=== PATIENT | male | born 1950 | race Caucasian/White ===

== ENCOUNTER → 2019-06-03 14:28 | Outpatient (BNVA) | payer MEDICARE, OTHER, SELFPAY | PROVIDERS: Family Provider Family Medicine; PCP Family Medicine; Visit Provider Urology | DX: R97.20 Elevated prostate specific antigen [PSA] (principal); N40.1 Benign prostatic hyperplasia with lower urinary tract symptoms | CPT/HCPCS: 81001; 84153 ==

== ENCOUNTER → 2019-06-04 14:24 | Outpatient (BNVA) | payer MEDICARE, OTHER, SELFPAY | PROVIDERS: Family Provider Family Medicine; PCP Family Medicine; Visit Provider Urology | DX: R97.20 Elevated prostate specific antigen [PSA] (principal); N40.1 Benign prostatic hyperplasia with lower urinary tract symptoms | CPT/HCPCS: 84153 ==

== ENCOUNTER → 2019-12-02 14:27 | Outpatient (BNVA) | payer MEDICARE, OTHER, SELFPAY | PROVIDERS: Family Provider Family Medicine; PCP Family Medicine; Visit Provider Urology | DX: R97.20 Elevated prostate specific antigen [PSA] (principal); N40.1 Benign prostatic hyperplasia with lower urinary tract symptoms | CPT/HCPCS: 81001; 84153 ==

== ENCOUNTER → 2020-02-25 07:53 | Outpatient (BNVA) | payer MEDICARE, OTHER, SELFPAY | PROVIDERS: Family Provider Family Medicine; PCP Family Medicine; Visit Provider Urology | DX: R97.20 Elevated prostate specific antigen [PSA] (principal); N39.9 Disorder of urinary system, unspecified | CPT/HCPCS: 84153 ==

== ENCOUNTER → 2020-03-02 13:08 | Outpatient (BNVA) | payer MEDICARE, OTHER, SELFPAY | PROVIDERS: Family Provider Family Medicine; PCP Family Medicine; Visit Provider Urology | DX: N40.1 Benign prostatic hyperplasia with lower urinary tract symptoms (principal); K40.90 Unilateral inguinal hernia, without obstruction or gangrene, not specified as recurrent; R97.20 Elevated prostate specific antigen [PSA] | CPT/HCPCS: 81003; 87086 ==

== ENCOUNTER 2020-10-10 03:40 | Inpatient (IN) | payer MEDICARE, OTHER, SELFPAY ==
[2020-10-10] VITALS (24 sets, daily range): BP systolic 112–170; BP diastolic 57–91; PULSE 42–100; RESP 12–21; TEMP 36.2–37.7; O2SAT 90–99; BMI 30.4
--- NOTE | 2020-10-10 04:12 | XRR_ITS ---
PROCEDURE INFORMATION: Exam: XR Left Elbow Exam date and time: 10/10/2020 4:12 AM Age: 70 years old Clinical indication: Pain; Elbow; Left; Additional info: L elbow pain and swelling TECHNIQUE: Imaging protocol: XR Left elbow. Views: 3 or more views. COMPARISON: CR Shoulder 2+ views LEFT* [id number] 10/15/2013 11:22 AM FINDINGS: Bones/joints: No fracture or dislocation. There is degenerative changes of the elbow joint, manifested mainly by small periarticular osteophytes. Swelling of the soft tissues around the elbow is present. Soft tissues: See Bones/joints finding. XR/XR elbow LT min 3V* [id number] IMPRESSION: No acute osseous injury.
--- NOTE | 2020-10-10 04:12 | XRR_ITS ---
PROCEDURE INFORMATION: Exam: XR Right Shoulder Exam date and time: 10/10/2020 4:12 AM Age: 70 years old Clinical indication: Pain; Shoulder; Right; Additional info: R shoulder pain TECHNIQUE: Imaging protocol: XR Right shoulder. Views: 2 or more views. COMPARISON: No relevant prior studies available. FINDINGS: Bones/joints: There is moderate glenohumeral and mild acromioclavicular degenerative changes, manifested by joint space narrowing, subchondral sclerosis and periarticular osteophytes. No acute fracture or dislocation identified. Soft tissues: Normal. XR/XR shoulder RT min 2V* [id number] IMPRESSION: 1. 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 2. No acute injury.
[2020-10-10] MEDS: morphine 4 mg/mL SDV 1 mL IVP ×3 (04:20→14:05)
[2020-10-10] MEDS: ondansetron 2 mg/ML SDV 2 mL 4 MG IVP ×4 (04:20→23:04)
[2020-10-10 04:29] LABS: Basophils # 0.1 10^3/uL (0.0-0.1); Basophils % 0.4 %; Eosinophils % 0.1 %; Hematocrit 42.2 % (42.0-52.0); Hemoglobin 14.3 g/dL (11.7-16.6); Lymphocytes # 1.3 10^3/uL (0.8-4.8); Lymphocytes % 7.9 %; Mean Corpuscular HGB Conc 33.9 g/dL (30.0-36.0); Mean Corpuscular Hemoglobin 30.8 pg (28.0-34.0); Mean Corpuscular Volume 90.8 fL (80-94); Mean Platelet Volume 9.5 fL (7.4-10.4); Monocytes # 1.7 10^3/uL (0.2-0.9); Neutrophils # 12.59 10^3/uL (1.8-7.7); Neutrophils % 79.8 %; Nucleated Red Blood Cells % 0 %; Platelet Count 397 10^3/cmm (130-400); Red Blood Count 4.65 10^6/uL (4.1-5.3); Red Cell Distribution Width 13.4 % (12.1-15.1); White Blood Count 15.8 10^3/uL (4.0-10.0)
[2020-10-10 04:51] LABS: Alanine Aminotransferase 23 U/L (0-41); Alkaline Phosphatase 127 IU/L (40-130); Aspartate Amino Transferase 20 U/L (0-40); Blood Urea Nitrogen 26 mg/dL (8-23); C Reactive Protein 104.8 mg/L (0.0-4.9); Calcium 8.9 mg/dL (8.5-10.5); Carbon Dioxide 20 mmol/L (22-29); Chloride 100 mmol/L (98-107); Creatine Phosphokinase 208 U/L (39-308); Creatinine Clr Calc Pharmacy 50.1195; Globulin 2.4 g/dL (1.3-4.6); Glomerular Filtration Rate 46.3 mL/min (90-130); Glucose 203 mg/dL (65-115); Osmolality Calculated 283 mOsm/kg (285-295); Sodium 131 mmol/L (136-145); Total Bilirubin 0.8 mg/dL (0.15-1.2); Total Protein 6.4 g/dL (6.6-8.7); Uric Acid 4.2 mg/dL (3.4-7.0)
[2020-10-10 05:00] LABS: Anion Gap 16.1 (5-19); Potassium 5.1 mmol/L (3.5-5.1)
--- NOTE | 2020-10-10 05:24 | ED_ITS ---
HPI - Extremity Problem General: Chief complaint: Extremity Injury, Upper Stated complaint: Rt Shoulder out of Place and Bursitis in Left Elbo Time Seen by Provider: 10/10/20 03:56 History of Present Illness: HPI Narrative: 70-year-old male complaining of left elbow and right shoulder pain for the past several days. He was seen for his left elbow a few days ago, had an aspiration of his olecranon bursa was performed. Following this, the elbow swelled more, and he had pain radiating into his hand. He was placed on antibiotics following this because it was warm and red. He has had a fever of 100-101 at home. He has had increasing pain. He also complains of right shoulder pain. He believes he injured his shoulder on Saturday, and has had intense pain with moving the shoulder since. He has not been able to sleep. MD Complaint: extremity pain, extremity swelling and joint swelling Onset (ago): day(s) Pain Consistency: constant Location: left, right and upper extremity Quality: aching Radiation: none Relieving factors: cold therapy Exacerbating factors: range of motion Associated symptoms: Reports fever(s) and rash; Deny chest pain or short of breath Review of Systems Const: Reports: fever(s) Card: Denies: chest pain Resp: Denies: dyspnea or productive cough GI: Denies: abdominal pain, nausea or vomiting Skin/Breast: Reports: rash Neuro: Denies: headache(s) or numbness in extremities [facility] ED PFSH: Medical History BPH loc w urin obs/LUTS Elevated PSA Left inguinal hernia Slow urinary stream Surgical History H/O vasectomy Family History Family/Other CAD (coronary artery disease) Cancer Lung Stroke Mother Parkinson disease Social History Smoking and tobacco status: never smoked Alcohol intake: never Marital status: Current occupational status: retired Physical Exam Const: COMMON NORMALS: no acute distress and alert GENERAL APPEARANCE: cooperative HENMT: COMMON NORMALS: normocephalic HEAD & SCALP: normocephalic Eye: COMMON NORMALS: Equal, round and reactive pupils present PUPIL: Yes Equal, round and reactive pupils present Chest: COMMONS NORMALS: normal inspection of the chest Resp: COMMON NORMALS: normal respiratory effort, No use of accessory muscles and clear to auscultation bilaterally AUSCULTATION: clear to auscultation bilaterally Cardio: COMMON NORMALS: regular rate and regular rhythm RATE: regular rate RHYTHM: regular rhythm Extremity: NARRATIVE EXTREMITY EXAM: Exam of the right shoulder reveals mild warmth. There is no redness. There is intense pain with active and passive range of motion. Exam of the left elbow reveals significant warmth, redness, soft tissue swelling as well as olecranon bursa swelling. There is tenderness with movement of the elbow and tenderness to palpation mainly posteriorly. Neuro: SENSORIUM/ORIENTATION: Yes alert Course Consultations: Consultation #1: Miranda Time: 05:44 Vital Signs: Vital signs: Vital Signs Temperature 99.1 F 10/10/20 05:15 Pulse Rate 100 10/10/20 05:15 Respiratory Rate 17 10/10/20 05:15 Blood Pressure 139/65 10/10/20 05:15 Pulse Oximetry 93 10/10/20 05:15 MDM - Extremity (Nontraumatic) MDM Narrative: Medical decision making narrative: White count of 16. Fever. CRP over 100. Red, tender, swollen left elbow suspicious for septic olecranon bursitis given the above indices. He is also having significant right shoulder pain. X-ray of the left elbow shows soft tissue swelling over the elbow. There does not appear to be a joint effusion. The elbow is significantly arthritic. 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 The patient will be admitted for IV antibiotics given the fact that he is failed oral antibiotics as an outpatient continues to have fevers. Lab Data: Labs: Lab Results 10/10/20 10/10/20 10/10/20 Range/Units 04:15 04:15 04:15 WBC 15.8 H (4.0-10.0) 10^3/ uL RBC 4.65 (4.1-5.3) 10^6/u L Hgb 14.3 (11.7-16.6) g/dL Hct 42.2 (42.0-52.0) % MCV 90.8 (80-94) fL MCH 30.8 (28.0-34.0) pg MCHC 33.9 (30.0-36.0) g/dL RDW 13.4 (12.1-15.1) % Plt Count 397 (130-400) 10^3/c mm MPV 9.5 (7.4-10.4) fL Neut % (Auto) 79.8 % Lymph % (Auto) 7.9 % [place] % (Auto) 11.0 % Eos % (Auto) 0.1 % Baso % (Auto) 0.4 % Neut # (Auto) 12.59 H (1.8-7.7) 10^3/u L Lymph # (Auto) 1.3 (0.8-4.8) 10^3/u L [place] # (Auto) 1.7 H (0.2-0.9) 10^3/u L Eos # (Auto) 0.0 (0.0-0.8) 10^3/u L Baso # (Auto) 0.1 (0.0-0.1) 10^3/u L Nucleated RBC % (a uto) 0 % Nucleated RBCs # 0.0 /100WBC Sodium 131 L (136-145) mmol/L Potassium 5.1 (3.5-5.1) mmol/L Chloride 100 (98-107) mmol/L Carbon Dioxide 20 L (22-29) mmol/L Anion Gap 16.1 (5-19) BUN 26 H (8-23) mg/dL Creatinine 1.5 H (0.7-1.2) mg/dL GFR Calculation 46.3 L (90-130) mL/min Glucose 203 H (65-115) mg/dL Calculated Osmolal ity 283 L (285-295) mOsm/k g Lactate 1.0 (0.5-2.2) mmol/L Uric Acid 4.2 (3.4-7.0) mg/dL Calcium 8.9 (8.5-10.5) mg/dL Total Bilirubin 0.8 (0.15-1.2) mg/dL AST 20 (0-40) U/L ALT 23 (0-41) U/L Alkaline Phosphata se 127 (40-130) IU/L Creatine Kinase 208 (39-308) U/L C-Reactive Protein 104.8 H (0.0-4.9) mg/L Total Protein 6.4 L (6.6-8.7) g/dL Albumin 4.0 (3.5-5.2) g/dL Globulin 2.4 (1.3-4.6) g/dL Discharge Plan Discharge Patient Disposition: Admitted As Inpatient Clinical Impression: Septic olecranon bursitis of left elbow Condition: Stable Coding Level of Care Code 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
[2020-10-10 05:50] LABS: Erythrocyte Sedimentation Rate 33 mm/hr (0-10)
[2020-10-10] MEDS: vancomycin 1,000 MG in sodium chloride 0.9% 250 ML 250 MG IV (05:59)
[2020-10-10] MEDS: morphine 4 mg/mL SDV 1 mL 2 MG IVP (06:16)
[2020-10-10 07:07] LABS: SARS Covid-2 Antigen Negative (Negative)
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
--- NOTE | 2020-10-10 08:02 | MR_ITS ---
WS: [id number] MRI RIGHT SHOULDER HISTORY: pain COMPARISON: Shoulder radiograph 10/10/2020 TECHNIQUE: Multiplanar sequences of the shoulder joint are submitted. Severe AC joint hypertrophy. Hypertrophic osteophytes encroach into the rotator cuff. Narrowing of th e joint space with erosions and subchondral cystic changes on both sides of the AC joint. Fluid signa l along the AC ligament. Small amount of fluid in the subacromial and subdeltoid bursa. No os acromio n. Small caliber biceps tendon in the bicipital groove. There may be a split tendon or calcific radha s within the tendon sheath. Hypertrophic bone formation at the bicipital groove. Severe degenerative changes at the glenohumeral joint. Glenoid is remodeled and vertical with loss of the normal cartilage. Large amount of osteophytic ridging around the humeral head with multiple subc hondral cysts. There is a moderate-sized joint effusion. Distal supraspinatus tendon is not identified and may be completely torn. There is significant compre ssion upon the anterior supraspinatus by AC joint arthropathy. Very mild atrophy of the supraspinatus muscle. Severe tendinopathy of the distal infraspinatus tendon. There is fluid extending along the t endon consistent with interbody substance tear. Large amount of fluid surrounding the subscapularis t endon. There is distal tendinopathy. There is edema in the subscapularis muscle. Labrum is diffusely abnormal. MR/MR shoulder RT wo con* [id number] IMPRESSION: 1. Severe AC joint and glenohumeral joint osteoarthritis with loss of the norm al joint spaces and large osteophytes and subchondral cystic disease. 2. Large osteophytes encroach upon the anterior supraspinatus from the AC join t. 3. Distal supraspinatus tendon is likely torn and slightly retracted. 4. Intrasubstance fluid in the distal infraspinatus tendon and tendinopathy in the infraspinatus tendon and subscapularis. 5. Small caliber biceps tendon. Partially torn or split tear. 6. Diffusely abnormal glenoid labrum. 7. Edema within several muscles surrounding the RIGHT shoulder joint.
[2020-10-10 12:45] LABS: Estmated Average Glucose 134; Hemoglobin A1C 6.3 % (4.0-6.0)
[2020-10-10 13:10] LABS: Bilirubin Urine 1+ (Negative); Blood Urine 2+ (Negative); Glucose Urine UA Norm (Normal); Ketones Urine Negative (Negative); Leukocyte Esterase Urine Negative (Negative); Nitrate Urine Negative (Negative); Protein Urine Trace (Negative); Specific Gravity, Urine 1.015 (1.005-1.030); Urine Appearance Clear (CLEAR); Urine Color Orange (Yellow); Urobilinogen Urine Norm (Negative); pH Urine 5 (5-7)
[2020-10-10 13:43] LABS: Add Urine Culture? No; Bacteria Urine 1+ /hpf; Hyaline Casts Urine 0-4 /lpf; Mucus Urine 1+ /hpf; RBC Urine 0-4 /hpf (0-2); Squamous Epithelial Cell Urine 0-4 /hpf (0-5); WBC Urine 0-4 /hpf (0-5)
--- NOTE | 2020-10-10 14:07 | ANES.PREANE2 ---
Pre-Anesthetic Assessment Pre-Anesthetic Assessment: Height/Weight: Height 1.73 m Weight 90.718 kg Temp Pulse Resp BP Pulse Ox 99.1 F 42 L 18 112/74 95 10/10/20 05:15 10/10/20 12:36 10/10/20 12:36 10/10/20 12:36 10/10/20 12:36 Preop Diagnosis: L elbow bursitis Proposed Procedure: Operation Date: 10/10/20 17:10 Proposed Procedures p Incision & Drainage elbow(Left) - Elda Martinez MD Familial anesthetic complications: None Was Beta Beto taken within 24 hours: N/A Was Clonidine taken within 24 hours: N/A Last intake: NPO > 8 hrs Social: Social History: No alcohol and No tobacco Exam: Pre-Anes Outpt Exam: alert, oriented x 3, clear to auscultation bilaterally and regular rate & rhythm Airway: Cervical ROM: WNL MP: 2 Dentition: Full and Other (missing) CV/HEM: CV/HEM: HTN : : Chronic renal Insufficiency Metabolic: Metabolic: DM Anesthetic Plan: ASA status: 2 Anesthesia: General Risk of > 500 ml blood loss (7ml/kg in children): No PFSH Anesthesia PFSH: Medical History (Updated 10/10/20 @ 11:06 by Sean Melendez MD) BPH loc w urin obs/LUTS Chronic kidney disease Diabetes DJD (degenerative joint disease) Elevated PSA Gout Left inguinal hernia Slow urinary stream Surgical History (Updated 10/10/20 @ 10:59 by Sean Melendez MD) H/O eye surgery H/O total hip arthroplasty H/O vasectomy Family History Family/Other CAD (coronary artery disease) Cancer Lung Stroke Mother Parkinson disease Social History Smoking and tobacco status: never smoked Alcohol intake: never Marital status: Current occupational status: retired Data Anesthesia CBC & Chem 7: 10/10/20 04:15 10/10/20 04:15 Other Labs: Laboratory Results - last 48 hr 10/10/20 10/10/20 10/10/20 04:15 04:15 04:15 WBC 15.8 H RBC 4.65 Hgb 14.3 Hct 42.2 MCV 90.8 MCH 30.8 MCHC 33.9 RDW 13.4 Plt Count 397 MPV 9.5 Neut % (Auto) 79.8 Lymph % (Auto) 7.9 [place] % (Auto) 11.0 Eos % (Auto) 0.1 Baso % (Auto) 0.4 Neut # (Auto) 12.59 H Lymph # (Auto) 1.3 [place] # (Auto) 1.7 H Eos # (Auto) 0.0 Baso # (Auto) 0.1 Nucleated RBC % (auto) 0 Nucleated RBCs # 0.0 ESR 33 H Sodium 131 L Potassium 5.1 Chloride 100 Carbon Dioxide 20 L Anion Gap 16.1 BUN 26 H Creatinine 1.5 H GFR Calculation 46.3 L Glucose 203 H Estimat Average Glucose Hemoglobin A1c Calculated Osmolality 283 L Lactate Uric Acid 4.2 Calcium 8.9 Total Bilirubin 0.8 AST 20 ALT 23 Alkaline Phosphatase 127 Creatine Kinase 208 C-Reactive Protein 104.8 H Total Protein 6.4 L Albumin 4.0 Globulin 2.4 Urine Color Urine Appearance Urine pH Ur Specific [place] Urine Protein Urine Glucose (UA) Urine Ketones Urine Blood Urine Nitrate Urine Bilirubin Urine Urobilinogen Ur Leukocyte Esterase Urine RBC Urine WBC Ur Squamous Epith Cells Amorphous Sediment Urine Bacteria Hyaline Casts Urine Mucus SARS-CoV-2 Ag (Rapid) 10/10/20 10/10/20 10/10/20 04:15 04:16 06:27 WBC RBC Hgb Hct MCV MCH MCHC RDW Plt Count MPV Neut % (Auto) Lymph % (Auto) [place] % (Auto) Eos % (Auto) Baso % (Auto) Neut # (Auto) Lymph # (Auto) [place] # (Auto) Eos # (Auto) Baso # (Auto) Nucleated RBC % (auto) Nucleated RBCs # ESR Sodium Potassium Chloride Carbon Dioxide Anion Gap BUN Creatinine GFR Calculation Glucose Estimat Average Glucose 134 Hemoglobin A1c 6.3 H Calculated Osmolality Lactate 1.0 Uric Acid Calcium Total Bilirubin AST ALT Alkaline Phosphatase Creatine Kinase C-Reactive Protein Total Protein Albumin Globulin Urine Color Urine Appearance Urine pH Ur Specific [place] Urine Protein Urine Glucose (UA) Urine Ketones Urine Blood Urine Nitrate Urine Bilirubin Urine Urobilinogen Ur Leukocyte Esterase Urine RBC Urine WBC Ur Squamous Epith Cells Amorphous Sediment Urine Bacteria Hyaline Casts Urine Mucus SARS-CoV-2 Ag (Rapid) Negative 10/10/20 12:35 WBC RBC Hgb Hct MCV MCH MCHC RDW Plt Count MPV Neut % (Auto) Lymph % (Auto) [place] % (Auto) Eos % (Auto) Baso % (Auto) Neut # (Auto) Lymph # (Auto) [place] # (Auto) Eos # (Auto) Baso # (Auto) Nucleated RBC % (auto) Nucleated RBCs # ESR Sodium Potassium Chloride Carbon Dioxide Anion Gap BUN Creatinine GFR Calculation Glucose Estimat Average Glucose Hemoglobin A1c Calculated Osmolality Lactate Uric Acid Calcium Total Bilirubin AST ALT Alkaline Phosphatase Creatine Kinase C-Reactive Protein Total Protein Albumin Globulin Urine Color [place] Urine Appearance Clear Urine pH 5 Ur Specific [place] 1.015 Urine Protein Trace Urine Glucose (UA) Norm Urine Ketones Negative Urine Blood 2+ H Urine Nitrate Negative Urine Bilirubin 1+ H Urine Urobilinogen Norm Ur Leukocyte Esterase Negative Urine RBC 0-4 H Urine WBC 0-4 H Ur Squamous Epith Cells 0-4 H Amorphous Sediment Not Reportable Urine Bacteria 1+ H Hyaline Casts 0-4 H Urine Mucus 1+ SARS-CoV-2 Ag (Rapid) Micro: Microbiology 10/10/20 12:14 Blood Culture - Preliminary Blood SPECIMEN COLLECTED 10/10/20 12:17 Blood Culture - Preliminary Blood SPECIMEN COLLECTED Cardiac Studies: No Data to Display
[2020-10-10] MEDS: sodium chloride 0.9% 1,000 ML 30 ML IV (17:21)
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
[2020-10-10] MEDS: fentaNYL 50 mcg/mL INJ 2mL IVP (18:10)
[2020-10-10] MEDS: vancomycin 1,000 MG SDV 1000 MG XX (19:15)
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
--- NOTE | 2020-10-10 19:54 | P.PCN_ITS ---
PACU note PACU note: VSS, Good respiratory effort, report to DREDGE PUMPER Post-Anesthesia Exam: awake
--- NOTE | 2020-10-10 19:54 | PM.PACU ---
PACU note PACU note: VSS, Good respiratory effort, report to GENERAL LEDGER BOOKKEEPER Post-Anesthesia Exam: awake
--- NOTE | 2020-10-10 20:30 | ANE.PACU2 ---
Inpatient post-anesthesia follow up: Airway intact: Yes Vital signs: Temperature 97.6 F Pulse Rate [Left B rachial] 62 Pulse Rate 52 Respiratory Rate 16 Blood Pressure [Le ft Arm] 136/73 Blood Pressure 93/53 Pulse Oximetry 91 Oxygen Delivery Me thod Room Air Oxygen Flow Rate 7 Fraction of Inspir ed Oxygen Hydration adequate: Yes Nausea and vomiting: No Pain level: 2 Mental status: Baseline
[2020-10-10] MEDS: acetaminophen 500 mg Tablet 1000 MG PO (21:49)
[2020-10-10] MEDS: sodium chloride 0.9% 1,000 ML 100 ML IV (21:50)
[2020-10-10] MEDS: vancomycin 1,500 MG/300 ML PIGGYBACK 150 MG IV (21:50)
--- NOTE | 2020-10-10 22:01 | PC.PHAR ---
Vancomycin is dosed at 1500mg IVPB every 24 hours to produce a predicted trough level of 14.33 (population based pharmacokinetic analysis). A trough level has been ordered from the lab to be obtained before the fourth dose to confirm and adjust if needed.
[2020-10-10] MEDS: docusate sodium 100 mg Capsule PO (23:05)
[2020-10-10] MEDS: oxyCODONE-APAP 5-325 mg Tablet 1 TAB PO (23:05)
[2020-10-11] VITALS (7 sets, daily range): BP systolic 93–149; BP diastolic 53–72; PULSE 50–60; RESP 16–17; TEMP 36.4–37.6; O2SAT 91–97
[2020-10-11 02:12] LABS: Basophils # 0.1 10^3/uL (0.0-0.1); Basophils % 0.4 %; Eosinophils % 0.3 %; Hematocrit 37.1 % (42.0-52.0); Hemoglobin 12.2 g/dL (11.7-16.6); Lymphocytes # 1.4 10^3/uL (0.8-4.8); Lymphocytes % 12.6 %; Mean Corpuscular HGB Conc 32.9 g/dL (30.0-36.0); Mean Corpuscular Hemoglobin 30.5 pg (28.0-34.0); Mean Corpuscular Volume 92.8 fL (80-94); Mean Platelet Volume 9.5 fL (7.4-10.4); Monocytes # 1.1 10^3/uL (0.2-0.9); Monocytes % 9.7 %; Neutrophils # 8.49 10^3/uL (1.8-7.7); Neutrophils % 76.4 %; Nucleated Red Blood Cells % 0 %; Platelet Count 288 10^3/cmm (130-400); Red Cell Distribution Width 13.5 % (12.1-15.1); White Blood Count 11.1 10^3/uL (4.0-10.0)
[2020-10-11 02:32] LABS: Alanine Aminotransferase 16 U/L (0-41); Albumin Level 3.1 g/dL (3.5-5.2); Alkaline Phosphatase 100 IU/L (40-130); Anion Gap 13.6 (5-19); Aspartate Amino Transferase 11 U/L (0-40); Blood Urea Nitrogen 30 mg/dL (8-23); Calcium 8.6 mg/dL (8.5-10.5); Carbon Dioxide 23 mmol/L (22-29); Chloride 102 mmol/L (98-107); Globulin 2.8 g/dL (1.3-4.6); Glucose 157 mg/dL (65-115); Osmolality Calculated 287 mOsm/kg (285-295); Potassium 4.6 mmol/L (3.5-5.1); Sodium 134 mmol/L (136-145); Total Bilirubin 0.7 mg/dL (0.15-1.2); Total Protein 5.9 g/dL (6.6-8.7)
[2020-10-11] MEDS: acetaminophen 500 mg Tablet 1000 MG PO ×3 (03:53→21:37)
--- NOTE | 2020-10-11 04:43 | PC.NURSE ---
shift note patient rested this shift, c/o of tingling to left elbow shotly after arriving to the floor, quentin wrap to left elbow intact, prn pain med administered, patient questioned about Losartan that he was taking for his blood pressure at home ans verbalized desire to ensure he gets it while in hospital, hospitalist informed. as the shift progress pain to left elbow lessened to 0, chief c/o pain to right shoulder but stated I could move it better now that before , continent of bladder, uses urinal.
[2020-10-11] MEDS: sodium chloride 0.9% 1,000 ML 100 ML IV (07:39)
[2020-10-11] MEDS: tamsulosin 0.4 mg Capsule PO (07:39)
[2020-10-11] MEDS: allopurinol 300 mg Tablet PO (07:39)
--- NOTE | 2020-10-11 09:34 | US_ITS ---
WS: [id number] RENAL ULTRASOUND HISTORY: renal failure COMPARISON: None available. TECHNIQUE: 2-D and color Doppler imaging of the kidney submitted. Right kidney: 11.5 cm x 6.7 cm x 4.6 cm. Normal size kidney. No cortical thinning. There are multiple renal cysts. The largest is lobulated fr om the lower pole measuring 4.7 x 3.6 x 5.7 cm. This large cyst contains septations and is not a simp le cyst. Left kidney: 14.7 cm x 6.4 cm x 4.9 cm. Normal size kidney with no hydronephrosis. There is a large cyst from the lower pole measuring 6.8 x 7.7 x 7.6 cm. There is an additional hypoechoic nodule adjacent to the medial kidney measuring 4.5 x 3.4 x 2.4 cm. This may be a complex cyst or part of the kidney. There are several cysts which are com plex. Aorta: Normal. Urinary Bladder: Normal distention. US/US renal BI* [id number] IMPRESSION: 1. Numerous bilateral cysts and complex cysts. These cysts have all increased in size since 2010. As some of these masses are complex cysts and contains sept ations recommend further evaluation. Recommend renal mass CT protocol to evalua te for solid masses or cystic neoplasm. 2. No hydronephrosis.
--- NOTE | 2020-10-11 10:15 | PC.CHAP ---
Pastoral Care Encounter/Spiritual Assessment Type of Contact [] Declined corporate communications intern visit [] Patient/Family/Request visit [] Outpatient visit [] Follow-up visit [] Physician referral [] Code/Alert [x] Routine visit [] Staff referral [] Actively dying [] Patient sleeping [] Family support [] [] Out of room [] Palliative care [] [] Receiving care in room [] Pre-surgical visit [] Trauma [] Long length of stay [] ICU visit [] Other: Relational/Emotional Strength [] Patient feels connected with others/family/visitors/staff [] Distress [] Loneliness/isolation [] Abandonment Spirituality of Patient [] Person of Judy [] Attends Hinduism of their Judy [] Believes in Prayer [] Reads Bible or Christian materials [] There are Spiritual issues to be addressed Aeronautics Commission Director Interventions x[] Prayer [] Active listening [] Non-anxious presence [] Spiritual/emotional support [] Crisis/trauma care [] Spiritual counseling [] Bereavement support [] Provided bereavement packet [] Provided Bible/devotional materials [] Provided toy/stuffed animal, coloring book to patient or family member [] Provided Communion [] Anointing/[place] [] Salvation [x] Completed spiritual assessment [] Other: Impact on Illness or Injury [] Angry [] Fearful [] Anxious [] Often cries [] Exhaustion [] Unable to work [] Unable to attend mu-ism [] Unable to walk/stand [] Unable to read [] Unable to drive [] Unable to eat/drink [] Unable to sleep [] Unable to be with family [] Patient intubated [] Other: Summary patient feeling better no pain Time spent with patient 10 min
--- NOTE | 2020-10-11 11:22 | PC.PT ---
pt indep with transfers and gait, no PT required at this time. instructed in standing balance exercises. D/C order
--- NOTE | 2020-10-11 11:43 | PM.PN ---
Subjective Subjective: Interval history: Pedro reports he feels somewhat better. Elbow is not bothering him as much, and right shoulder has less discomfort as well. I reviewed his MRI with him. Medications: Reviewed: Yes Vitals/I&O/Wt Last Vital Signs Temp 98.3 F 10/11/20 11:31 Pulse 53 L 10/11/20 11:31 Resp 16 10/11/20 11:31 BP 115/62 10/11/20 11:31 Pulse Ox 95 10/11/20 11:31 10/10/20 10/11/20 10/11/20 22:59 06:59 14:59 Intake Total 1700 / 1950 300 / 2250 1221.667 / 1221.667 Output Total 75 / 75 Balance 1625 / 1875 300 / 2175 1221.667 / 1221.667 Weight last 48 hrs Weight 90.718 kg Physical Exam Narrative: EXAM NARRATIVE: General exam no apparent distress Neck supple no lymphadenopathy or thyromegaly Cardiovascular regular rate and rhythm without murmur Lungs clear no wheezing or crackles Abdomen is soft nontender with positive bowel sounds. No obvious organomegaly Extremities surgical dressing left elbow. Right shoulder with improved range of motion. No cyanosis clubbing or edema. Data : 10/11/20 01:58 10/11/20 01:58 Micro: Microbiology 10/10/20 18:58 Anaerobic Culture - Preliminary Elbow - Left 10/10/20 18:58 Gram Stain - Final Elbow - Wound 10/10/20 18:58 Gram Stain - Final Elbow - Left 10/10/20 12:14 Blood Culture - Preliminary Blood SPECIMEN COLLECTED 10/10/20 12:17 Blood Culture - Preliminary Blood SPECIMEN COLLECTED A&P Assessment and plan (1) Septic olecranon bursitis of left elbow: Cultures negative to date Continue vancomycin IV Appreciate orthopedic consultation Postoperative day #1 status post irrigation and debridement left olecranon bursa, removal of calcification If continues to do well and remains afebrile by tomorrow likely discharge. Status: Acute (2) Right shoulder pain: Multiple findings on MRI including labral abnormality, supraspinatus tear To be followed outpatient by orthopedics. Status: Acute (3) Diabetes: Patient reports a past history of diabetes. Hemoglobin A1c 6.3 Consistent carb diet Status: Acute (4) Chronic kidney disease: Appears to have chronic kidney disease. Creatinine slightly high and has been in the past as well. Urinalysis reviewed. Check renal ultrasound. Continue to hold ARB. Avoid renal toxic medication. Will need outpatient follow-up. Status: Acute Additional A&P Information History of gout, continue allopurinol Full code Lovenox for DVT prophylaxis Attestations Medical Necessity Statement*: Needs continued hospitalization for IV antibiotics secondary to septic olecranon bursitis, fever. 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
[2020-10-11] MEDS: enoxaparin 40 mg/0.4 mL Syringe SUBCUT (11:59)
--- NOTE | 2020-10-11 12:01 | PC.NURSE ---
patient had drainage noted to left elbow. conventional mortgage underwriter reinforced dressing to left elbow.
--- NOTE | 2020-10-11 15:56 | PC.NURSE ---
Dr Martinez took dressing off patient's left arm and removed drain. cleansed incision with peroxide and covered with 4x4 and quentin wrap.
--- NOTE | 2020-10-11 20:01 | PM.PN ---
Subjective Subjective: Interval history: Pedro reports he feels somewhat better. Elbow is not bothering him as much, and right shoulder has less discomfort as well. He has had some drainage from the elbow which I explained was secondary to the drain Medications: Reviewed: Yes Vitals/I&O/Wt Last Vital Signs Temp 99.6 F 10/11/20 19:28 Pulse 60 10/11/20 19:28 Resp 17 10/11/20 19:28 BP 134/71 10/11/20 19:28 Pulse Ox 91 10/11/20 19:28 10/11/20 10/11/20 10/11/20 06:59 14:59 22:59 Intake Total 300 / 2250 1955.000 / 1955.000 240 / 2195.000 Output Total 400 / 400 Balance 300 / 2175 1555.000 / 1555.000 240 / 1795.000 Weight last 48 hrs Weight 200 lb Physical Exam Const: COMMON NORMALS: no acute distress, average body habitus, patient oriented x3 and alert GENERAL APPEARANCE: cooperative and comfortable ORIENTATION/CONSCIOUSNESS: Yes awake HENMT: COMMON NORMALS: normocephalic and atraumatic HEAD & SCALP: normocephalic and atraumatic Eye: GENERAL EYE: appearance normal, both eyes and all related structures Chest: COMMONS NORMALS: normal inspection of the chest Resp: COMMON NORMALS: normal respiratory effort EFFORT & INSPECTION: Yes able to speak in complete sentences and Yes symmetric chest movement Extremity: RIGHT UPPER EXTREMITY: Yes shoulder joint (Patient still holds the shoulder quite still, but still uses the hand) Right shoulder: Yes Right shoulder joint inspection exam (No significant erythema) and Yes Right shoulder joint neurovascular exam (Intact distally) LEFT UPPER EXTREMITY: Yes elbow joint (Patient is spontaneously using his left arm) Left elbow: Yes inspection (Wound is benign), Yes palpation (Minimal tenderness) and Yes ROM (Near complete range of motion) Neuro: COMMON NORMALS: patient oriented x3 SENSORIUM/ORIENTATION: Yes alert Psych: COMMON NORMALS: mental status grossly normal APPEARANCE: Yes grossly normal ATTITUDE: Yes calm and Yes engaged ATTENTION/CONCENTRATION: Yes attention grossly intact Skin: COMMON NORMALS: no rashes or lesions noted GENERAL SKIN EXAM: no rashes or lesions noted Data : 10/11/20 01:58 10/11/20 01:58 Micro: Microbiology 10/10/20 12:14 Blood Culture - Preliminary Blood NEGATIVE TO DATE 10/10/20 12:17 Blood Culture - Preliminary Blood NEGATIVE TO DATE 10/10/20 18:58 Anaerobic Culture - Preliminary Elbow - Left 10/10/20 18:58 Gram Stain - Final Elbow - Wound 10/10/20 18:58 Gram Stain - Final Elbow - Left A&P Assessment and plan (1) Septic olecranon bursitis of left elbow: Patient has done well following irrigation and debridement of his left upper the opposite shoulder is improving, but he is still more comfortable using his left upper extremity. Dressing is removed and the drain is discontinued. Surgical procedure is explained to the patient. Patient will likely be discharged home tomorrow. Dressing changes will be as needed. Status: Acute (2) Rotator cuff tear arthropathy of right shoulder: The patient continues to complain of pain in the right upper extremity. He is reluctant to move the shoulder, but it has improved. He is eating with his opposite hand as this is more comfortable for him in spite of being right-handed. The patient understands that any further treatments or therapies to this right shoulder would need to be delayed until he is completely resolved his septic olecranon bursitis of the left elbow. He understands and agrees with the plan. Status: Acute Attestations Medical Necessity Statement*: Patient has required hospitalization for surgical debridement of a septic olecranon bursitis of the elbow as well as incapacitating right shoulder pain. He has required IV antibiotics. Coding Level of Care Code Acute Weatherization Crew Leader for [facility] Fwd Exam Comprehensive Diagnoses Septic olecranon bursitis of left elbow M71.122 Rotator cuff tear arthropathy of right shoulder M75.101; M12.811
[2020-10-11] MEDS: oxyCODONE 5 mg IR Tab/Cap PO (21:36)
[2020-10-11] MEDS: vancomycin 1,500 MG/300 ML PIGGYBACK 150 MG IV (21:38)
[2020-10-11] MEDS: ondansetron 2 mg/ML SDV 2 mL 4 MG IVP (22:23)
[2020-10-12] VITALS: BP 111/66; PULSE 72; RESP 17; TEMP 36.9; O2SAT 97
[2020-10-12 02:55] LABS: Basophils # 0.1 10^3/uL (0.0-0.1); Basophils % 0.6 %; Eosinophils # 0.2 10^3/uL (0.0-0.8); Eosinophils % 2.3 %; Hematocrit 37.9 % (42.0-52.0); Lymphocytes # 1.8 10^3/uL (0.8-4.8); Mean Corpuscular HGB Conc 31.7 g/dL (30.0-36.0); Mean Corpuscular Hemoglobin 29.8 pg (28.0-34.0); Mean Platelet Volume 9.8 fL (7.4-10.4); Monocytes # 0.7 10^3/uL (0.2-0.9); Monocytes % 7.3 %; Neutrophils # 6.49 10^3/uL (1.8-7.7); Neutrophils % 70.3 %; Nucleated Red Blood Cells % 0 %; Platelet Count 346 10^3/cmm (130-400); Red Blood Count 4.03 10^6/uL (4.1-5.3); Red Cell Distribution Width 13.5 % (12.1-15.1); White Blood Count 9.2 10^3/uL (4.0-10.0)
[2020-10-12 03:14] LABS: Anion Gap 14.7 (5-19); Blood Urea Nitrogen 29 mg/dL (8-23); Calcium 8.5 mg/dL (8.5-10.5); Carbon Dioxide 21 mmol/L (22-29); Chloride 106 mmol/L (98-107); Glomerular Filtration Rate 42.9 mL/min (90-130); Glucose 116 mg/dL (65-115); Osmolality Calculated 291 mOsm/kg (285-295); Potassium 4.7 mmol/L (3.5-5.1); Sodium 137 mmol/L (136-145)
[2020-10-12] MEDS: acetaminophen 500 mg Tablet 1000 MG PO (03:58)
[2020-10-12 04:00] VITALS: BP 120/67; PULSE 59; RESP 16; TEMP 36.8; O2SAT 94
[2020-10-12 07:20] VITALS: BP 130/73; PULSE 42; RESP 16; TEMP 36.8; O2SAT 95
--- NOTE | 2020-10-12 07:23 | PC.NURSE ---
Pt complaining of lower abdominal pain that comes and goes. Pt states they have not had a bowel movement since Saturday.
[2020-10-12] MEDS: tamsulosin 0.4 mg Capsule PO (07:46)
[2020-10-12] MEDS: allopurinol 300 mg Tablet PO (07:46)
--- NOTE | 2020-10-12 08:00 | P.DS_ITS ---
Discharge Providers Date of Admission: 10/10/20 05:49 Date of Discharge: October 12, 2020 Attending Provider at Admission: Sean Melendez MD Attending Provider at Discharge: Sean Melendez MD Diagnoses at Discharge Discharge Diagnosis (1) Septic olecranon bursitis of left elbow: Status: Acute (2) Rotator cuff tear arthropathy of right shoulder: Status: Acute Reason for Visit Reason for Visit: Rt Shoulder out of Place and Bursitis in Left [place] Hospital Course Hospital Course Pedro is a 70-year-old white male who presented to the hospital with complaints of fever, drainage from his left elbow and erythema. He was also having some right shoulder pain. He was diagnosed with septic left olecranon bursitis and orthopedics was consulted. He was placed on vancomycin IV. During his hospital stay he had no further fevers. Incision drainage by orthopedics occurred on October 10 without complication. Blood cultures were negative at discharge. Analysis of renal function was concerning for chronic kidney disease. Renal ultrasound was performed demonstrating multiple bilateral cysts, some with questionable solid component. He will follow-up with his primary care provider in regards to this, for consideration of referral to nephrology and possible further imaging. I discussed this in detail with the patient as well as the importance of it. Discharge creatinine 1.6. ARB held on discharge. Blood pressure 130/73. Wound culture negative to date as well. MRI right shoulder demonstrates rotator cuff tear. He will follow-up for this as well as bursitis with orthopedics in 2 weeks. Physical Exam Narrative: EXAM NARRATIVE: General exam no apparent distress Neck is supple no lymphadenopathy or thyromegaly Cardiovascular regular rate and rhythm without murmur Lungs clear Abdomen is soft with positive bowel sounds Extremities, left with dressing but markedly decreased edema. Right upper extremity shoulder appears normal with good range of motion below breast line. Discharge Data Data Completed and Pending: Completed Studies During Hospitalization Category Date Time Status XR elbow LT min 3 V* [id number] Stat Exams 10/10/20 04:12 Completed XR shoulder RT mi n 2V* [id number] Stat Exams 10/10/20 04:12 Completed MR shoulder RT wo con* [id number] Routin e MRI 10/10/20 08:02 Completed US renal BI* [id number] Routine Ultrasound 10/11/20 09:34 Completed Pending at discharge Category Date Time Status Anaerobic Culture Routine Lab 10/10/20 18:58 Results Blood Culture Sta t Lab 10/10/20 12:14 Results Tick Panel Stat Lab 10/10/20 04:38 Received Tissue Culture an d Gram Stain Routi ne Lab 10/10/20 18:58 Results Vancomycin Trough Timed Lab 10/13/20 20:00 Ordered Wound Culture and Gram Stain Routin e Lab 10/10/20 18:58 Results Labs from last 24 hours 10/12/20 10/12/20 02:30 02:30 WBC 9.2 RBC 4.03 L Hgb 12.0 Hct 37.9 L MCV 94.0 MCH 29.8 MCHC 31.7 RDW 13.5 Plt Count 346 MPV 9.8 Neut % (Auto) 70.3 Lymph % (Auto) 19.0 [place] % (Auto) 7.3 Eos % (Auto) 2.3 Baso % (Auto) 0.6 Neut # (Auto) 6.49 Lymph # (Auto) 1.8 [place] # (Auto) 0.7 Eos # (Auto) 0.2 Baso # (Auto) 0.1 Nucleated RBC % (a uto) 0 Nucleated RBCs # 0.0 Sodium 137 Potassium 4.7 Chloride 106 Carbon Dioxide 21 L Anion Gap 14.7 BUN 29 H Creatinine 1.6 H GFR Calculation 42.9 L Glucose 116 H Calculated Osmolal ity 291 Calcium 8.5 Vitals: Last Vital Signs Temp 98.2 F 10/12/20 07:20 Pulse 42 L 10/12/20 07:20 Resp 16 10/12/20 07:20 BP 130/73 10/12/20 07:20 Pulse Ox 95 10/12/20 07:20 Discharge Plan Discharge Patient Disposition: Home Condition: Stable Prescriptions: New oxycodone 5 mg tablet 5 mg PO Q6H PRN (Reason: pain) Qty: 10 RF: 0 doxycycline monohydrate 100 mg capsule 100 mg PO BID 7 Days Qty: 14 RF: 0 Continued allopurinol 300 mg tablet 300 mg PO DAILY RF: 0 tamsulosin 0.4 mg capsule 0.4 mg PO DAILY Qty: 90 RF: 3 tramadol 50 mg tablet 50 mg PO DAILY RF: 0 Discontinued losartan 50 mg tablet 50 mg PO DAILY RF: 0 Discharge Orders: Discharge Order (Routine); Ordered 10/12/20 Ordered By: Sean Melendez Referrals: Elda Martinez MD [Physician] - 2 weeks Elan,Carlos Harley, MD [Referring] - 4-7 days (Consider referral to nephrology, follow-up chronic kidney disease and bilateral multiple renal cysts with possible need for further imaging.) Discharge Diet: Advance as tolerated Discharge Activity: Increase activity as tolerated Patient Instructions: Opioid Safety Activity Restrictions/Additional Instructions: Ice to right shoulder and left elbow as needed. Please change dressing to the left elbow as necessary. Keep wound clean and dry. Discharge Attestations Time Spent in Discharge Care*: greater than 30 min Quality Metrics Clinical Quality Measures During this hospital stay, did patient experience: None Coding Level of Care Code Acute [facility] note Diagnoses Septic olecranon bursitis of left elbow M71.122 Rotator cuff tear arthropathy of right shoulder M75.101; M12.811
[2020-10-12] MEDS: bisacodyl 10 mg Supp PR (08:50)
--- NOTE | 2020-10-12 10:40 | PC.NURSE ---
Discharge instruction given, pt verbalized understanding. Prescriptions called in to [facility] and hard script given for PRN 5mg oxycodone q6hr signed by Dr. Melendez. Iv removed, catheter intact. Pressure dressing applied, pt tolerated well. Pt picked up by and left in pov.
[2020-10-12 10:45] VITALS: BP 130/73; PULSE 42; RESP 16; TEMP 36.8; O2SAT 95
[2020-10-12 12:37] LABS: Lyme AB Screen <0.90 index
[2020-10-17 17:38] LABS: E. Chaffeensis AB IGG <1:64; E. Chaffeensis AB IGM <1:20
[2020-10-19 17:23] LABS: RMSF IGG NOT DETECTED; RMSF IGM NOT DETECTED
== END 2020-10-12 10:48 | disposition home or self-care (01) | DRG 464 ==
LOC: ER 05:45 → ER IP 11:08 → MEDSURG 16:00
PROVIDERS: Specialist; Admitting Provider Internal Medicine; Emergency Provider Emergency Medicine; Visit Provider Internal Medicine
PROC: 0JBH0ZZ Excision of Left Lower Arm Subcutaneous Tissue and Fascia, Open Approach (ICD-10-PCS; principal; 2020-10-10 17:00)
DX: M71.122 Other infective bursitis, left elbow (principal); Q61.02 Congenital multiple renal cysts; N40.1 Benign prostatic hyperplasia with lower urinary tract symptoms; R39.12 Poor urinary stream; N18.9 Chronic kidney disease, unspecified; E11.22 Type 2 diabetes mellitus with diabetic chronic kidney disease; M10.9 Gout, unspecified; Z96.643 Presence of artificial hip joint, bilateral; M75.111 Incomplete rotator cuff tear or rupture of right shoulder, not specified as traumatic; M19.011 Primary osteoarthritis, right shoulder; M65.811 Other synovitis and tenosynovitis, right shoulder; Z79.891 Long term (current) use of opiate analgesic
CPT/HCPCS: 36415; 73030; 73080; 73221; 76770; 80048; 80053; 81001; 82550; 83036; 83605; 84550; 85025; 85651; 86140; 86618; 86666; 86757; 87040; 87070; 87075; 87176; 87205; 87426; 96365; 96372; 96375; 96376; 97165; 99285; J0330; J1650; J2270; J2405; J2704; J3010; J3370; J3490; J7030; J7050

== ENCOUNTER → 2020-11-04 16:09 | Outpatient (BNVA) | payer MEDICARE, OTHER, SELFPAY | PROVIDERS: Visit Provider Nurse Practitioner Family | DX: Z20.822 Contact with and (suspected) exposure to COVID-19 (principal) | CPT/HCPCS: 87426; 87635 ==

== ENCOUNTER 2020-11-21 15:53 | Inpatient (IN) | payer MEDICARE, OTHER, SELFPAY ==
--- NOTE | 2020-11-21 15:57 | XRR_ITS ---
PROCEDURE INFORMATION: Exam: XR Left Knee Exam date and time: 11/21/2020 3:57 PM Age: 70 years old Clinical indication: Swelling or effusion of joint; Patient HX: Left knee pain and swelling; Additional info: 2 views, rule out knee injuries TECHNIQUE: Imaging protocol: XR Left knee. Views: 1 or 2 views. COMPARISON: No relevant prior studies available. FINDINGS: Bones/joints: There is severe osteoarthritis of the left knee with joint space narrowing and mild lateral subluxation of the tibia with sclerosis and remodeling of the femoral condyles more medially than laterally and also the medial tibial plateau. There is narrowing of the patellofemoral space with marginal osteophytes from all components of the joints most prominently in the patellofemoral space. There is moderate effusion in the suprapatellar bursa. There is a calcific density posterior to the, probably a loose body or some synovial chondromatosis. No fracture is identified. Soft tissues: Normal. XR/XR knee LT 1-2V [id number] IMPRESSION: Advanced osteoarthritis. No fracture is identified.
[2020-11-21 16:24] VITALS: BP 116/69; PULSE 63; RESP 16; TEMP 37.6; O2SAT 93; BMI 27.6
--- NOTE | 2020-11-21 18:21 | ED_ITS ---
HPI - Extremity Problem General: Chief complaint: Extremity Problem,Nontraumatic Stated complaint: Left knee swollen/pain Time Seen by Provider: 11/21/20 17:45 Source: patient Mode of arrival: ambulatory Limitations: no limitations History of Present Illness: HPI Narrative: 70-year-old male who states he does have a history of gout arthritis states been having pain in his left knee since Saturday. States the pain is increased and is now 9 out of 10. He states his difficult for him to walk due to the pain. Denies any fevers. Denies any injuries. Denies any radiation of his pain. He states it is improved with rest. Associated symptoms: Deny chest pain, fever(s) or rash Review of Systems Const: Denies: fever(s), chills, body aches or change in appetite Eyes: Denies: blurry vision or eye discomfort ENMT: Denies: throat pain or dental pain Card: Denies: chest pain Resp: Denies: dyspnea GI: Denies: abdominal pain, nausea, vomiting or diarrhea : Denies: dysuria Musc: Reports: joint pain Skin/Breast: Denies: rash Neuro: Denies: headache(s) Psych: Denies: depression Travis/Lymph: Denies: easy bruising All/Imm: Denies: urticaria PFSH ED PFSH: Medical History BPH loc w urin obs/LUTS Chronic kidney disease Diabetes DJD (degenerative joint disease) Elevated PSA Gout Left inguinal hernia Slow urinary stream Surgical History H/O eye surgery H/O total hip arthroplasty BILATERAL H/O vasectomy Family History Family/Other CAD (coronary artery disease) Cancer Lung Stroke Mother Parkinson disease Social History (Updated 11/04/20 @ 15:57 by Isabelle Osborne NP) Smoking and tobacco status: never smoked Alcohol intake: never Marital status: Current occupational status: retired Physical Exam Const: COMMON NORMALS: no acute distress, patient oriented x3 and healthy appearing HENMT: COMMON NORMALS: normocephalic and atraumatic HEAD & SCALP: normocephalic and atraumatic Eye: COMMON NORMALS: Equal, round and reactive pupils present and EOMs intact bilaterally PUPIL: Yes Equal, round and reactive pupils present Neck/C-Spine: COMMON NORMALS: full ROM and supple Chest: COMMONS NORMALS: normal inspection of the chest and normal palpation of entire chest wall Resp: COMMON NORMALS: normal respiratory effort, No retractions, No use of accessory muscles and clear to auscultation bilaterally AUSCULTATION: clear to auscultation bilaterally Cardio: COMMON NORMALS: regular rate, regular rhythm and No murmurs present (Cardio) RATE: regular rate RHYTHM: regular rhythm GI: COMMON NORMALS: Normal to inspection, nondistended, normoactive bowel sounds present, Soft to palpation, non-tender and no masses PALPATION: Yes Soft to palpation Extremity: COMMON NORMALS: full ROM NARRATIVE EXTREMITY EXAM: Swelling along with tenderness to left knee does have pain with range of motion. Neuro: COMMON NORMALS: patient oriented x3, moves all extremities and no focal motor deficits Psych: COMMON NORMALS: mental status grossly normal, Normal thought process present and cooperative THOUGHT PROCESS: Normal thought process present Skin: COMMON NORMALS: no rashes or lesions noted and no wounds GENERAL SKIN EXAM: no rashes or lesions noted Procedures Joint Aspiration/Injection Joint Asp./Inject. 1: Time Out Performed: Yes Side of body: left Joint Aspirated: knee Ultrasound Guidance: No Skin Prep: Povidone-Iodine1% Local Anesthetic: bupivacaine 0.5% Amount of anesthesia used (mL): 10 Needle Size Used: 18G Fluid Obtained: turbid Total fluid obtained (mL): 60 Patient Tolerated Procedure: well Complications: none Course Vital Signs: Vital signs: Vital Signs Temperature 99.6 F 11/21/20 16:24 Pulse Rate 63 11/21/20 16:24 Respiratory Rate 16 11/21/20 18:51 Blood Pressure 116/69 11/21/20 16:24 Pulse Oximetry 93 11/21/20 16:24 MDM - Extremity (Nontraumatic) MDM Narrative: Medical decision making narrative: Patient presents with a likely septic joint. Patient does have elevated inflammatory markers along with elevated white cells on the arthrocentesis. Patient started on IV antibiotics. I spoke to hospitalist along with orthopedist patient is admitted. Lab Data: Labs: Lab Results 08/30/21 08/30/21 08/30/21 Range/Units 18:45 18:45 18:45 WBC 15.2 H (4.0-10.0) 10^3/ uL RBC 4.44 (4.1-5.3) 10^6/u L Hgb 13.1 (11.7-16.6) g/dL Hct 40.0 L (42.0-52.0) % MCV 90.1 (80-94) fl MCH 29.5 (28.0-34.0) pg MCHC 32.8 (30.0-36.0) g/dL RDW 13.5 (12.1-15.1) % Plt Count 493 H (130-400) 10^3/c mm MPV 9.9 (7.4-10.4) fL Neut % (Auto) 76.1 % Lymph % (Auto) 7.3 % [place] % (Auto) 15.1 % Eos % (Auto) 0.2 % Baso % (Auto) 0.5 % Neut # (Auto) 11.60 H (1.8-7.7) 10^3/u L Lymph # (Auto) 1.1 (0.8-4.8) 10^3/u L [place] # (Auto) 2.3 H (0.2-0.9) 10^3/u L Eos # (Auto) 0.0 (0.0-0.8) 10^3/u L Baso # (Auto) 0.1 (0.0-0.1) 10^3/u L Nucleated RBC % (a uto) 0 % Nucleated RBCs # 0.0 /100WBC Differential Comme nt ESR 34 H (0-10) mm/hr C-Reactive Protein 110.6 H (0.0-4.9) mg/L Fluid Color Fluid Appearance Fluid WBC /uL Fluid RBC 10^3/uL Fluid Tot Cell Cou nt Fld Polynuclear WB Cs # Fld Polynuclear WB Cs % % Fl Mononucl WBCs # (Auto) Fl Mononuclear % A uto % Fluid Crystals 11/21/20 11/21/20 Range/Units 19:22 19:22 WBC (4.0-10.0) 10^3/ uL RBC (4.1-5.3) 10^6/u L Hgb (11.7-16.6) g/dL Hct (42.0-52.0) % MCV (80-94) fl MCH (28.0-34.0) pg MCHC (30.0-36.0) g/dL RDW (12.1-15.1) % Plt Count (130-400) 10^3/c mm MPV (7.4-10.4) fL Neut % (Auto) % Lymph % (Auto) % [place] % (Auto) % Eos % (Auto) % Baso % (Auto) % Neut # (Auto) (1.8-7.7) 10^3/u L Lymph # (Auto) (0.8-4.8) 10^3/u L [place] # (Auto) (0.2-0.9) 10^3/u L Eos # (Auto) (0.0-0.8) 10^3/u L Baso # (Auto) (0.0-0.1) 10^3/u L Nucleated RBC % (a uto) % Nucleated RBCs # /100WBC Differential Comme nt Yes ESR (0-10) mm/hr C-Reactive Protein (0.0-4.9) mg/L Fluid Color Pale yellow Fluid Appearance Cloudy Fluid WBC 12584 /uL Fluid RBC 3000 10^3/[place] [address] Fld Polynuclear WB Cs # 57591.000 Fld Polynuclear WB Cs % 91.300 % Fl Mononucl WBCs # (Auto) 3379.000 Fl Mononuclear % A uto 8.700 % Fluid Crystals See path consult Discharge Plan Discharge Patient Disposition: Admitted As Inpatient Admit Provider: Macrina Ignacio Clinical Impression: Septic arthritis Condition: Stable Coding Level of Care Code ED Mail List Librarian for [facility] Fwd Exam Comprehensive
[2020-11-21 18:51] VITALS: RESP 16
[2020-11-21] MEDS: HYDROmorphone 1 mg/mL INJ 1 mL IVP (18:51)
[2020-11-21] MEDS: ondansetron 2 mg/ML SDV 2 mL 4 MG IVP (18:52)
[2020-11-21 18:53] LABS: Basophils # 0.1 10^3/uL (0.0-0.1); Basophils % 0.5 %; Eosinophils % 0.2 %; Hemoglobin 13.1 g/dL (11.7-16.6); Lymphocytes # 1.1 10^3/uL (0.8-4.8); Lymphocytes % 7.3 %; Mean Corpuscular HGB Conc 32.8 g/dL (30.0-36.0); Mean Corpuscular Hemoglobin 29.5 pg (28.0-34.0); Mean Corpuscular Volume 90.1 fl (80-94); Mean Platelet Volume 9.9 fL (7.4-10.4); Monocytes # 2.3 10^3/uL (0.2-0.9); Monocytes % 15.1 %; Neutrophils % 76.1 %; Nucleated Red Blood Cells % 0 %; Platelet Count 493 10^3/cmm (130-400); Red Blood Count 4.44 10^6/uL (4.1-5.3); Red Cell Distribution Width 13.5 % (12.1-15.1); White Blood Count 15.2 10^3/uL (4.0-10.0)
--- NOTE | 2020-11-21 18:53 | USR_ITS ---
PROCEDURE INFORMATION: Exam: US Duplex Left Lower Extremity Veins, Limited Exam date and time: 11/21/2020 6:53 PM Age: 70 years old Clinical indication: Pain; Leg, lower; Left; Additional info: Leg pain TECHNIQUE: Imaging protocol: Real-time Duplex ultrasound of the Left Lower Extremity with 2-D redmond scale, color Doppler flow and spectral waveform analysis with image documentation. Limited exam focused on the left lower extremity veins. COMPARISON: US renal BI* [id number] 10/11/2020 11:03 AM FINDINGS: Left deep veins: Unremarkable. The common femoral, femoral, proximal profunda femoral and popliteal veins are patent without thrombus. Normal Doppler waveforms. Normal compressibility and/or augmentation response. Left superficial veins: Unremarkable. Saphenofemoral junction is patent without thrombus. Soft tissues: Unremarkable. US/[place] [id number] IMPRESSION: No evidence of deep vein thrombosis.
[2020-11-21 19:22] LABS: C Reactive Protein 110.6 mg/L (0.0-4.9)
[2020-11-21 19:51] LABS: Erythrocyte Sedimentation Rate 34 mm/hr (0-10)
[2020-11-21 20:01] LABS: Apprearance, Body Fluid CLOUDY; Color, Body Fluid PALE YELLOW
[2020-11-21 20:03] LABS: Body Fluid WBC 38853 /uL
[2020-11-21 20:04] LABS: RBC, Body Fluid 3000 10^3/uL
[2020-11-21 20:07] LABS: PATH Referral YES
[2020-11-21] MEDS: vancomycin 1,000 MG in sodium chloride 0.9% 250 ML 250 MG IV (20:28)
[2020-11-21 20:30] LABS: Crystals, Fluid See Path Consult
[2020-11-21 21:37] VITALS: BP 138/73; PULSE 73; RESP 14; O2SAT 92
--- NOTE | 2020-11-21 21:44 | P.HP_ITS ---
Providers/Chief Complaint Admitting Physician: Macrina Ignacio MD Primary Care Provider: Dr Ansari in [facility] Chief Complaint: Left knee swollen/pain History of Present Illness Pedro Gomez is a 70 year old male who presented to the emergency room with chief complaint of pain and swelling in his left knee. Symptoms began Saturday or Saturday with pain followed by swelling. He denies any trauma to the knee. He has had warmth and decreased range of motion associated with it. In the emergency room he had fluid drainage of cloudy synovial fluid that had around 40,000 white blood cells with a predominance of PMNs. He was given IV antibiotics for coverage of septic arthritis and request was made for admission. He describes the pain as severe, may be a little bit improved after drainage. He was hospitalized here in September with a septic left elbow. He had been on antibiotics then both prior to that admission and after that admission. He says he was hospitalized a couple of weeks ago at [facility] for 3 days also with an infection and was discharged on additional antibiotics which she has since completed. He cannot tell me what those antibiotics or hospitalization were specifically for so I have requested the records. He does take medication for gout. He denies a history of diabetes although it looks like his hemoglobin A1c was 6.3 last hospital stay here in September. He does complain of right shoulder pain but is known to have torn rotator cuff that has not been addressed due to the infection that he had in his left elbow thus far. Prior to the recent joint issues, he tells me that he had to have his knees drained several times when he was a teenager from injuries associated with football but denies any other longstanding joint problems not already mentioned. Review of Systems Const: Reports: fever(s) and chills Eyes: Denies: change in vision ENMT: Denies: throat pain or nasal congestion Card: Denies: chest pain, palpitations or edema Resp: Denies: dyspnea, productive cough or non-productive cough GI: Denies: abdominal pain, nausea, vomiting, diarrhea or constipation : Reports: urinary frequency, difficulty starting urination and nocturia; Denies: hematuria Musc: Reports: extremity pain, extremity swelling, joint pain, joint swelling, joint redness, joint warmth, joint stiffness and limited range of motion Skin/Breast: Denies: rash or pruritus Neuro: Reports: difficulty walking (Secondary to pain in his left knee); Denies: headache(s), numbness in extremities, weakness in extremities or sensory changes Psych: Denies: anxiety or depression Travis/Lymph: Denies: easy bruising or easy bleeding Medications/Allergies Home Medications Medication Instructions Recorded Confirmed Last Taken Type allopurinol 300 mg tablet 300 mg PO DAILY 06/03/19 11/21/20 11/21/20 History tramadol 50 mg PO DAILY 10/10/20 11/21/20 11/21/20 History tamsulosin 0.8 mg PO BEDTIME 11/21/20 11/21/20 11/20/20 History Allergies Allergy/AdvReac Type Severity Reaction Status Date / Time No Known Allergies Allergy Verified 11/04/20 15:57 Additional Medication Information I personally reviewed home medication list and medications received day of admission thus far. In the emergency room he received vancomycin, Zofran, Dilaudid. PFSH Acute PFSH: Medical History (Updated 11/21/20 @ 23:33 by Macrina Ignacio MD) BPH loc w urin obs/LUTS Chronic kidney disease Identified September 2020 although had been on Bactrim prior to this, I do not have baseline laboratory studies otherwise. Renal ultrasound at the time demonstrated numerous bilateral cysts and complex cysts. Diabetes A1c 09/2020 6.3 DJD (degenerative joint disease) Elevated PSA Gout Left inguinal hernia Surgical History (Updated 11/21/20 @ 22:50 by Macrina Ignacio MD) H/O eye surgery H/O total hip arthroplasty Bilateral H/O vasectomy Family History Family/Other CAD (coronary artery disease) Cancer Lung Stroke Mother Parkinson disease Social History (Updated 11/21/20 @ 22:48 by Macrina Ignacio MD) Smoking and tobacco status: never smoked Alcohol intake: never Substance/Drug Use: never Marital status: Current occupational status: retired Vitals/I&O/Wt Last Vital Signs Temp 99.6 F 11/21/20 16:24 Pulse 73 11/21/20 21:37 Resp 14 11/21/20 21:37 BP 138/73 11/21/20 21:37 Pulse Ox 92 11/21/20 21:37 11/21/20 11/21/20 11/21/20 06:59 14:59 22:59 Intake Total 250 / 250 Balance 250 / 250 Weight last 48 hrs Weight 82.554 kg Physical Exam Narrative: EXAM NARRATIVE: Constitutional: Awake and alert, cooperative HEENT: Normocephalic, atraumatic, extraocular movements are intact, pupils reactive, nasopharynx is clear, mucous membranes dry but clear Neck: Supple Respiratory: Clear to auscultation bilaterally Cardiovascular: Regular rate and rhythm Abdomen: Soft, nontender, nondistended Extremities: Right shoulder with decreased range of motion and tenderness to palpation, no warmth or erythema, left knee is swollen, tender with movement, currently covered in Betadine but warm to touch and tender to touch, synovial fluid in the room is cloudy, left elbow with good range of motion, not tender, has a thickened bursa without warmth or erythema, unable to define any nodular deformity Skin: No significant rashes, no lesions noted on hands or feet, no bruising Neuro: Speech clear, face symmetric, moves all extremities Psych: Normal affect Data : 11/21/20 18:45 Other data: Laboratory Results WBC 15.2 10^3/uL (4.0-10.0) H 11/21/20 18:45 RBC 4.44 10^6/uL (4.1-5.3) 11/21/20 18:45 Hgb 13.1 g/dL (11.7-16.6) 11/21/20 18:45 Hct 40.0 % (42.0-52.0) L 11/21/20 18:45 MCV 90.1 fl (80-94) 11/21/20 18:45 MCH 29.5 pg (28.0-34.0) 11/21/20 18:45 MCHC 32.8 g/dL (30.0-36.0) 11/21/20 18:45 RDW 13.5 % (12.1-15.1) 11/21/20 18:45 Plt Count 493 10^3/cmm (130-400) H 11/21/20 18:45 MPV 9.9 fL (7.4-10.4) 11/21/20 18:45 Neut % (Auto) 76.1 % 11/21/20 18:45 Lymph % (Auto) 7.3 % 11/21/20 18:45 [place] % (Auto) 15.1 % 11/21/20 18:45 Eos % (Auto) 0.2 % 11/21/20 18:45 Baso % (Auto) 0.5 % 11/21/20 18:45 Neut # (Auto) 11.60 10^3/uL (1.8-7.7) H 11/21/20 18:45 Lymph # (Auto) 1.1 10^3/uL (0.8-4.8) 11/21/20 18:45 [place] # (Auto) 2.3 10^3/uL (0.2-0.9) H 11/21/20 18:45 Eos # (Auto) 0.0 10^3/uL (0.0-0.8) 11/21/20 18:45 Baso # (Auto) 0.1 10^3/uL (0.0-0.1) 11/21/20 18:45 Nucleated RBC % (auto) 0 % 11/21/20 18:45 Nucleated RBCs # 0.0 /100WBC 11/21/20 18:45 Differential Comment Yes 11/21/20 19:22 ESR 34 mm/hr (0-10) H 11/21/20 18:45 Sodium 132 mmol/L (136-145) L 11/21/20 18:45 Potassium 4.4 mmol/L (3.5-5.1) 11/21/20 18:45 Chloride 94 mmol/L (98-107) L 11/21/20 18:45 Carbon Dioxide 24 mmol/L (22-29) 11/21/20 18:45 Anion Gap 18.4 (5-19) 11/21/20 18:45 BUN 15 mg/dL (8-23) 11/21/20 18:45 Creatinine 1.1 mg/dL (0.7-1.2) 11/21/20 18:45 GFR Calculation 66.2 mL/min (90-130) L 11/21/20 18:45 Glucose 139 mg/dL (65-115) H 11/21/20 18:45 Calculated Osmolality 277 mOsm/kg (285-295) L 11/21/20 18:45 Calcium 9.5 mg/dL (8.5-10.5) 11/21/20 18:45 Total Bilirubin 1.0 mg/dL (0.15-1.2) 11/21/20 18:45 AST 15 U/L (0-40) 11/21/20 18:45 ALT 13 U/L (0-41) 11/21/20 18:45 Alkaline Phosphatase 123 IU/L (40-130) 11/21/20 18:45 C-Reactive Protein 110.6 mg/L (0.0-4.9) H 11/21/20 18:45 Total Protein 6.7 g/dL (6.6-8.7) 11/21/20 18:45 Albumin 3.3 g/dL (3.5-5.2) L 11/21/20 18:45 Globulin 3.4 g/dL (1.3-4.6) 11/21/20 18:45 Fluid Color Pale yellow 11/21/20 19:22 Fluid Appearance Cloudy 11/21/20 19:22 Fluid WBC 17111 /uL 11/21/20 19:22 Fluid RBC 3000 10^3/uL 11/21/20 19:22 Fluid Tot Cell Count 82959 11/21/20 19:22 Fld Polynuclear WBCs # 17073.000 11/21/20 19:22 Fld Polynuclear WBCs % 91.300 % 11/21/20 19:22 Fl Mononucl WBCs #(Auto) 3379.000 11/21/20 19:22 Fl Mononuclear % Auto 8.700 % 11/21/20 19:22 Fluid Crystals See path consult 11/21/20 19:22 Impressions Knee X-Ray 11/21/20 15:57 FINDINGS: Bones/joints: There is severe osteoarthritis of the left knee with joint space narrowing and mild lateral subluxation of the tibia with sclerosis and remodeling of the femoral condyles more medially than laterally and also the medial tibial plateau. There is narrowing of the patellofemoral space with marginal osteophytes from all components of the joints most prominently in the patellofemoral space. There is moderate effusion in the suprapatellar bursa. There is a calcific density posterior to the, probably a loose body or some synovial chondromatosis. No fracture is identified. Soft tissues: Normal. IMPRESSION: Advanced osteoarthritis. No fracture is identified. Venous Duplex 11/21/20 18:53 FINDINGS: Left deep veins: Unremarkable. The common femoral, femoral, proximal profunda femoral and popliteal veins are patent without thrombus. Normal Doppler waveforms. Normal compressibility and/or augmentation response. Left superficial veins: Unremarkable. Saphenofemoral junction is patent without thrombus. Soft tissues: Unremarkable. IMPRESSION: No evidence of deep vein thrombosis. STUDIES from SEPTEMBER to MRI right shoulder 10/10/20 MRI RIGHT SHOULDER HISTORY: pain COMPARISON: Shoulder radiograph 10/10/2020 TECHNIQUE: Multiplanar sequences of the shoulder joint are submitted. Severe AC joint hypertrophy. Hypertrophic osteophytes encroach into the rotator cuff. Narrowing of the joint space with erosions and subchondral cystic changes on both sides of the AC joint. Fluid signal along the AC ligament. Small amount of fluid in the subacromial and subdeltoid bursa. No os acromion. Small caliber biceps tendon in the bicipital groove. There may be a split tendon or calcific bodies within the tendon sheath. Hypertrophic bone formation at the bicipital groove. Severe degenerative changes at the glenohumeral joint. Glenoid is remodeled and vertical with loss of the normal cartilage. Large amount of osteophytic ridging around the humeral head with multiple subchondral cysts. There is a moderate- sized joint effusion. Distal supraspinatus tendon is not identified and may be completely torn. There is significant compression upon the anterior supraspinatus by AC joint arthropat hy. Very mild atrophy of the supraspinatus muscle. Severe tendinopathy of the distal infraspinatus tendon. There is fluid extending along the tendon consistent with interbody substance tear. Large amount of fluid surrounding the subscapularis tendon. There is distal tendinopathy. There is edema in the subscapularis muscle. Labrum is diffusely abnormal. MR/MR shoulder RT wo con* [id number] IMPRESSION: 1. Severe AC joint and glenohumeral joint osteoarthritis with loss of the normal joint spaces and large osteophytes and subchondral cystic disease. 2. Large osteophytes encroach upon the anterior supraspinatus from the AC joint. 3. Distal supraspinatus tendon is likely torn and slightly retracted. 4. Intrasubstance fluid in the distal infraspinatus tendon and tendinopathy in the infraspinatus tendon and subscapularis. 5. Small caliber biceps tendon. Partially torn or split tear. 6. Diffusely abnormal glenoid labrum. 7. Edema within several muscles surrounding the RIGHT shoulder joint. Renal US 10/11/20 Right kidney: 11.5 cm x 6.7 cm x 4.6 cm. Normal size kidney. No cortical thinning. There are multiple renal cysts. The largest is lobulated from the lower pole measuring 4.7 x 3.6 x 5.7 cm. This large cyst contains septations and is not a simple cyst. Left kidney: 14.7 cm x 6.4 cm x 4.9 cm. Normal size kidney with no hydronephrosis. There is a large cyst from the lower pole measuring 6.8 x 7.7 x 7.6 cm. There is an additional hypoechoic nodule adjacent to the medial kidney measuring 4.5 x 3.4 x 2.4 cm. This may be a comp chano cyst or part of the kidney. There are several cysts which are complex. Aorta: Normal. Urinary Bladder: Normal distention. US/US renal BI* [id number] IMPRESSION: 1. Numerous bilateral cysts and complex cysts. These cysts have all increased in size since 2010. As some of these masses are complex cysts and contains septations recommend further evaluation. Recommend renal mass CT protocol to evaluate for solid masses or cystic neoplasm. 2. No hydronephrosis. Left Elbow 10/10/20 FINDINGS: Bones/joints: No fracture or dislocation. There is degenerative changes of the elbow joint, manifested mainly by small periarticular osteophytes. Swelling of the soft tissues around the elbow is present. Soft tissues: See Bones/joints finding. XR/XR elbow LT min 3V* [id number] IMPRESSION: No acute osseous injury. A&P Assessment and plan (1) Left knee pain: Current diagnosis is septic arthritis as that would be the most important to address emergently. He had left olecranon septic bursitis in September and reports being hospitalized at [facility] for several days for an infection somewhere else recently though not able to provide details. From what I can tell no organisms were identified from left olecranon bursa last month. Fluid this evening from the left knee with approximately 40,000 white blood cells and predominance of PMNs. He has, however, been on recent antibiotics by his report. Review of external records shows Levaquin and cefdinir were prescribed mid October and doxycycline and Bactrim were prescribed in September. Records indicate a history of gout and he is on allopurinol chronically. Uric acid level in September was 4.2. He has a history of bilateral hip replacement. Findings could be consistent with a partially treated bacterial infection, inflammatory process with partially treated infection, or inflammatory process without infection. He does have elevated CRP greater than 100 on 2 occasions now more than a month apart. Sed rate only mildly elevated around 30 both times. I do not see any history of inflammatory/immunology studies here. He has a history of rotator cuff tear in the right shoulder with pain in the right shoulder but denies any other joint pains currently apart from the left knee. Status: Acute Qualifiers: Chronicity: acute Qualified Code(s): M25.562 - Pain in left knee (2) Septic arthritis: Status: Acute Qualifiers: Laterality: left Septic arthritis location: knee Septic arthritis organism: due to unspecified organism Qualified Code(s): M00.9 - Pyogenic arthritis, unspecified (3) Septic olecranon bursitis of left elbow: Last month Status: Resolved (4) Rotator cuff tear arthropathy of right shoulder: Chronic, has not been addressed surgically due to infections Status: Chronic (5) H/O total hip arthroplasty: In the past Status: Chronic Qualifiers: Laterality: bilateral Qualified Code(s): Z96.643 - Presence of artifici al hip joint, bilateral (6) Gout: Chronically on allopurinol, recent uric acid levels within normal range Status: Chronic Qualifiers: Gout site: unspecified site Gout etiology: unspecified cause Chronicity: unspecified Qualified Code(s): M10.9 - Gout, unspecified (7) Diabetes: Patient denies diagnosis, A1c on October 10 was 6.3, not on any chronic treatment or dietary modifications Status: Acute Qualifiers: Diabetes mellitus type: type 2 Diabetes mellitus prison insulin use: without adjunct faculty for medical terminology use Diabetes mellitus complication status: with hyperglycemia Qualified Code(s): E11.65 - Type 2 diabetes mellitus with hyperglycemia (8) Chronic kidney disease: Baseline creatinine looks to be around 1.5 from available records here although caveat is that patient had been on Bactrim prior to the only available comparative labs with we have. In addition he reports that he had been on some blood pressure medications that were stopped when he was identified as having chronic kidney disease. Presumptively, based on available information stage IIIb by calculations but await labs from this evening. Renal ultrasound done in September demonstrated numerous bilateral cyst and complex cyst and recommendation was for further evaluation. He has been referred to nephrology in [place]. Status: Chronic Qualifiers: Chronic kidney disease stage: unspecified stage Qualified Code(s): N18.9 - Chronic kidney disease, unspecified (9) BPH loc w urin obs/LUTS: Chronically on Flomax and has seen Dr. Manzo Status: Chronic Additional A&P Information Inpatient admission Vancomycin and Unasyn Synovial fluid was collected in the emergency room Synovial fluid culture should be pending Crystal analysis should be pending Orthopedics consultation, they will see patient tomorrow Get blood cultures Monitor sed rate and CRP Given the fact that he has had several episodes of what has been described as septic joints now, will check echocardiogram and white blood cell tagged scan Check rheumatoid factor, LEANDRO Uric acid was normal in September, will repeat Continue allopurinol which he is chronically on Hemoglobin A1c was 6.3 in September of this year, not on anything chronically for diabetes, will add sliding scale insulin currently, monitor blood sugars, request diabetic diet education and consideration will need to be given to management at the time of discharge or upon follow-up with PCP Check electrolytes and monitor renal function with treatment He has been referred to see Dr. Jaime in [place] for his kidney function and has an appointment on December 02 Reports some elevated blood pressures in the past necessitating medication; review of external medication records shows that he had been on FER inhibitor followed by [facility], blood pressures are not ideal currently but he is complaining of pain, will monitor for need to intervene Continue home Flomax Intervention for shoulder pain will again have to be delayed until inflammatory/infectious process is sorted out Supportive care otherwise Consultants: Dr. Juarez Pending/ordered tests/procedures to follow: Synovial fluid culture/Gram stain and crystals, rheumatoid factor and LEANDRO panel, sed rate and CRP, blood cultures, echocardiogram, white blood cell tag scan Medical records: Requested from [facility] where he was recently hospitalized and treated with antibiotics within the past 2 weeks Lines/tubes: Peripheral IV DVT prophylaxis: Currently with SCDs pending orthopedic consultation Plans, findings and concerns discussed with patient and he was given an opportunity to ask questions. 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 Jaime in [place] Code Status: Full code Attestations Medical Necessity Statement*: Anticipated stay greater than two midnights in this gentleman with issues as noted above. Currently requiring IV antibiotics, orthopedic consultation and other care as indicated. He has had recurrent issues lately and multiple courses of antibiotics complicating evaluation and management. Coding Level of Care Code Acute Clerical Coordinator for Chg Fwd Diagnoses Left knee pain M25.562 Chronicity: acute Septic arthritis M00.9 Laterality: left Septic arthritis location: knee Septic arthritis organism: due to unspecified organism Septic olecranon bursitis of left elbow M71.122 Rotator cuff tear arthropathy of right shoulder M75.101; M12.811 H/O total hip arthroplasty Z96.643 Laterality: bilateral Gout M10.9 Gout site: unspecified site Gout etiology: unspecified cause Chronicity: unspecified Diabetes E11.65 Diabetes mellitus type: type 2 Diabetes mellitus adjunct faculty for medical terminology insulin use: without prison use Diabetes mellitus complication status: with hyperglycemia Chronic kidney disease N18.9 Chronic kidney disease stage: unspecified stage BPH loc w urin obs/LUTS N40.1
[2020-11-21 22:14] VITALS: BMI 28.3
[2020-11-21 22:20] VITALS: BP 157/76; PULSE 89; RESP 17; TEMP 36.8; O2SAT 94
[2020-11-21 23:01] LABS: Alanine Aminotransferase 13 U/L (0-41); Albumin Level 3.3 g/dL (3.5-5.2); Alkaline Phosphatase 123 IU/L (40-130); Anion Gap 18.4 (5-19); Aspartate Amino Transferase 15 U/L (0-40); Blood Urea Nitrogen 15 mg/dL (8-23); Calcium 9.5 mg/dL (8.5-10.5); Carbon Dioxide 24 mmol/L (22-29); Chloride 94 mmol/L (98-107); Globulin 3.4 g/dL (1.3-4.6); Glomerular Filtration Rate 66.2 mL/min (90-130); Glucose 139 mg/dL (65-115); Osmolality Calculated 277 mOsm/kg (285-295); Potassium 4.4 mmol/L (3.5-5.1); Sodium 132 mmol/L (136-145); Total Protein 6.7 g/dL (6.6-8.7)
[2020-11-21] MEDS: tamsulosin 0.4 mg Capsule 0.8 MG PO (23:40)
[2020-11-21] MEDS: sodium chlor 0.45% +KCl 20 mEq 20 MEQ/1,000 ML BAG 75 MEQ IV (23:40)
--- NOTE | 2020-11-21 23:42 | PC.PHAR ---
Vancomycin is dosed at 1500mg IVPB every 18 hours to produce a predicted trouh level of 15.31 (population based pharmacokinetic analysis). A trough level has been ordered from the lab to be obtained before the fourth dose to confirm and adjust if needed.
[2020-11-21 23:55] VITALS: RESP 16
[2020-11-21] MEDS: morphine 4 mg/mL SDV 1 mL IVP (23:55)
[2020-11-22] VITALS (9 sets, daily range): BP systolic 114–148; BP diastolic 62–78; PULSE 52–90; RESP 16–18; TEMP 36.8–39.2; O2SAT 94–98
[2020-11-22] MEDS: ampicillin-sulbactam 3 GM in sodium chloride 0.9% (plus) 50 ML IV ×5 (00:16→23:49)
[2020-11-22] MEDS: HYDROcodone-acetaminophen 5-325 mg Tablet 1 TAB PO ×2 (02:23→07:57)
[2020-11-22 02:24] LABS: Basophils # 0.1 10^3/uL (0.0-0.1); Basophils % 0.4 %; Eosinophils % 0.1 %; Hematocrit 38.7 % (42.0-52.0); Hemoglobin 12.7 g/dL (11.7-16.6); Lymphocytes # 1.3 10^3/uL (0.8-4.8); Lymphocytes % 8.5 %; Mean Corpuscular HGB Conc 32.8 g/dL (30.0-36.0); Mean Corpuscular Hemoglobin 29.2 pg (28.0-34.0); Monocytes # 2.5 10^3/uL (0.2-0.9); Monocytes % 16.5 %; Neutrophils # 11.22 10^3/uL (1.8-7.7); Neutrophils % 73.8 %; Nucleated Red Blood Cells % 0 %; Platelet Count 454 10^3/cmm (130-400); Red Blood Count 4.35 10^6/uL (4.1-5.3); Red Cell Distribution Width 13.5 % (12.1-15.1); White Blood Count 15.2 10^3/uL (4.0-10.0)
[2020-11-22 02:41] LABS: Anion Gap 14.6 (5-19); Blood Urea Nitrogen 13 mg/dL (8-23); Calcium 9.2 mg/dL (8.5-10.5); Carbon Dioxide 27 mmol/L (22-29); Chloride 95 mmol/L (98-107); Glomerular Filtration Rate 66.2 mL/min (90-130); Glucose 153 mg/dL (65-115); Magnesium 1.8 mg/dL (1.7-2.3); Osmolality Calculated 277 mOsm/kg (285-295); Phosphorus 2.8 mg/dL (2.5-4.5); Potassium 4.6 mmol/L (3.5-5.1); Sodium 132 mmol/L (136-145)
[2020-11-22 02:59] LABS: C Reactive Protein 138.7 mg/L (0.0-4.9)
[2020-11-22 03:11] LABS: Erythrocyte Sedimentation Rate 38 mm/hr (0-10)
[2020-11-22] MEDS: morphine 4 mg/mL SDV 1 mL IVP ×2 (04:41→12:10)
[2020-11-22 06:05] LABS: Glucose Point of Care 139 mg/dL (70-110)
[2020-11-22] MEDS: vancomycin 1,500 MG/300 ML PIGGYBACK 150 MG IV (07:58)
[2020-11-22] MEDS: allopurinol 300 mg Tablet PO (07:58)
[2020-11-22] MEDS: docusate sodium 100 mg Capsule PO ×2 (07:58→17:43)
--- NOTE | 2020-11-22 08:57 | PC.CHAP ---
Pastoral Care Encounter/Spiritual Assessment Type of Contact [] Declined admissions coordinator visit [] Patient/Family/Request visit [] Outpatient visit [] Follow-up visit [] Physician referral [] Code/Alert x[] Routine visit [] Staff referral [] Actively dying [] Patient sleeping [] Family support [] [] Out of room [] Palliative care [] [] Receiving care in room [] Pre-surgical visit [] Trauma [] Long length of stay [] ICU visit [] Other: Relational/Emotional Strength [x] Patient feels connected with others/family/visitors/staff [] Distress [] Loneliness/isolation [] Abandonment Spirituality of Patient [x] Person of Judy [] Attends Voodoo of their Judy [x] Believes in Prayer [] Reads Bible or Jain materials [] There are Spiritual issues to be addressed Hinging Machine Operator Interventions [x] Prayer [x Active listening [] Non-anxious presence [] Spiritual/emotional support [] Crisis/trauma care [] Spiritual counseling [] Bereavement support [] Provided bereavement packet [] Provided Bible/devotional materials [] Provided toy/stuffed animal, coloring book to patient or family member [] Provided Communion [] Anointing/[place] [] Salvation [x] Completed spiritual assessment [] Other: Impact on Illness or Injury [] Angry [] Fearful [] Anxious [] Often cries [] Exhaustion [] Unable to work [] Unable to attend zoroastrianism [] Unable to walk/stand [] Unable to read [] Unable to drive [] Unable to eat/drink [] Unable to sleep [] Unable to be with family [] Patient intubated [] Other: Summary patient has n lots of pain Time spent with patient 10 min
--- NOTE | 2020-11-22 11:51 | PM.PN ---
Subjective Subjective: Interval history: Patient was seen and examined today, continues to complain of severe left knee pain. Currently having temperature spikes. Noted T-max:102.6. Medications: Reviewed: Yes Vitals/I&O/Wt Last Vital Signs Temp 98.5 F 11/22/20 11:49 Pulse 52 L 11/22/20 11:49 Resp 18 11/22/20 11:49 BP 144/75 11/22/20 11:49 Pulse Ox 97 11/22/20 11:49 11/21/20 11/22/20 11/22/20 22:59 06:59 14:59 Intake Total 250 / 250 340 / 590 300 / 300 Output Total 260 / 260 750 / 750 Balance 250 / 250 80 / 330 -450 / -450 Weight last 48 hrs Weight 84.538 kg Weight 82.554 kg Physical Exam Const: COMMON NORMALS: patient oriented x3 HENMT: COMMON NORMALS: normocephalic and atraumatic HEAD & SCALP: normocephalic and atraumatic Resp: COMMON NORMALS: clear to auscultation bilaterally AUSCULTATION: clear to auscultation bilaterally Cardio: COMMON NORMALS: regular rate, regular rhythm, S1 normal heart sound present, S2 normal heart sound present, No gallops present (Cardio), No murmurs present (Cardio), No rub (Cardio) and Peripheral pulses 2+ throughout RATE: regular rate RHYTHM: regular rhythm HEART SOUNDS: S1 normal heart sound present and S2 normal heart sound present PERIPHERAL PULSES: Peripheral pulses 2+ throughout GI: COMMON NORMALS: Normal to inspection, nondistended, normoactive bowel sounds present, Soft to palpation, non-tender, No hepatosplenomegaly present and no masses AUSCULTATION: Yes normoactive bowel sounds PALPATION: Yes Soft to palpation and Yes No hepatosplenomegaly present RECTAL EXAM: Yes deferred Extremity: OTHER: Left knee erythema swelling, increased warmth and tenderness present. Right knee Normal Neuro: COMMON NORMALS: patient oriented x3 Data : 11/22/20 02:00 11/22/20 02:00 Micro: Microbiology 11/21/20 19:22 Gram Stain - Final Synovial Fluid 11/21/20 23:50 Blood Culture - Preliminary Blood SPECIMEN COLLECTED 11/21/20 23:46 Blood Culture - Preliminary Blood SPECIMEN COLLECTED A&P Assessment and plan (1) Left knee pain: Current diagnosis is septic arthritis as that would be the most important to address emergently. He had left olecranon septic bursitis in September and reports being hospitalized at [facility] for several days for an infection somewhere else recently though not able to provide details. From what I can tell no organisms were identified from left olecranon bursa last month. Fluid this evening from the left knee with approximately 40,000 white blood cells and predominance of PMNs. He has, however, been on recent antibiotics by his report. Review of external records shows Levaquin and cefdinir were prescribed mid October and doxycycline and Bactrim were prescribed in September. Records indicate a history of gout and he is on allopurinol chronically. Uric acid level in September was 4.2. He has a history of bilateral hip replacement. Findings could be consistent with a partially treated bacterial infection, inflammatory process with partially treated infection, or inflammatory process without infection. He does have elevated CRP greater than 100 on 2 occasions now more than a month apart. Sed rate only mildly elevated around 30 both times. I do not see any history of inflammatory/immunology studies here. He has a history of rotator cuff tear in the right shoulder with pain in the right shoulder but denies any other joint pains currently apart from the left knee. Status: Acute Qualifiers: Chronicity: acute Qualified Code(s): M25.562 - Pain in left knee (2) Septic arthritis: Status: Acute Qualifiers: Laterality: left Septic arthritis location: knee Septic arthritis organism: due to unspecified organism Qualified Code(s): M00.9 - Pyogenic arthritis, unspecified (3) Septic olecranon bursitis of left elbow: Last month Status: Resolved (4) Rotator cuff tear arthropathy of right shoulder: Chronic, has not been addressed surgically due to infections Status: Chronic (5) H/O total hip arthroplasty: In the past Status: Chronic Qualifiers: Laterality: bilateral Qualified Code(s): Z96.643 - Presence of artificial hip joint, bilateral (6) Gout: Chronically on allopurinol, recent uric acid levels within normal range Status: Chronic Qualifiers: Gout site: unspecified site Gout etiology: unspecified cause Chronicity: unspecified Qualified Code(s): M10.9 - Gout, unspecified (7) Diabetes: Patient denies diagnosis, A1c on October 10 was 6.3, not on any chronic treatment or dietary modifications Status: Acute Qualifiers: Diabetes mellitus type: type 2 Diabetes mellitus 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 In addition he reports that he had been on some blood pressure medications that were stopped when he was identified as having chronic kidney disease. Presumptively, based on available information stage IIIb by calculations but await labs from this evening. Renal ultrasound done in September demonstrated numerous bilateral cyst and complex cyst and recommendation was for further evaluation. He has been referred to nephrology in [place]. Status: Chronic Qualifiers: Chronic kidney disease stage: unspecified stage Qualified Code(s): N18.9 - Chronic kidney disease, unspecified (9) BPH loc w urin obs/LUTS: Chronically on Flomax and has seen Dr. Manzo Status: Chronic Additional A&P Information Left knee pain and swelling: Rule out septic arthritis. Versus inflammatory arthritis Vancomycin and Unasyn S/p left knee arthrocentesis : synovial fluid was collected in the emergency room Synovial fluid culture Crystal analysis Blood cultures: Monitor sed rate and CRP: CV venous duplex LE LT:No evidence of deep vein thrombosis. 2 DeCHO : Normal LV size and systolic function: LVEF 69%, no RWMA , no gross valvular abnormality.No valvular vegetation appreciated. white blood cell tagged scan rheumatoid factor: LEANDRO Uric acid normal Continue allopurinol which he is chronically on Orthopedics on board: Recommended conservative management for no Hemoglobin A1c was 6.3 in September of this year, not on anything chronically for diabetes, will add sliding scale insulin currently, monitor blood sugars, request diabetic diet education and consideration will need to be given to management at the time of discharge or upon follow-up with PCP Check electrolytes and monitor renal function with treatment He has been referred to see Dr. Jaime in [place] for his kidney function and has an appointment on December 02 Reports some elevated blood pressures in the past necessitating medication; review of external medication records shows that he had been on FER inhibitor followed by [facility], blood pressures are not ideal currently but he is complaining of pain, will monitor for need to intervene Continue home Flomax Intervention for shoulder pain will again have to be delayed until inflammatory/infectious process is sorted out Supportive care otherwise DVT prophylaxis: Currently with SCDs pending orthopedic consultation Code Status: Full code Attestations Medical Necessity Statement*: Patient needs to be in hospital for management of left knee pain and swelling. 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[employer] Diagnoses Left knee pain M25.562 Chronicity: acute Septic arthritis M00.9 Laterality: left Septic arthritis location: knee Septic arthritis organism: due to unspecified organism Septic olecranon bursitis of left elbow M71.122 Rotator cuff tear arthropathy of right shoulder M75.101; M12.811 H/O total hip arthroplasty Z96.643 Laterality: bilateral Gout M10.9 Gout site: unspecified site Gout etiology: unspecified cause Chronicity: unspecified Diabetes E11.65 Diabetes mellitus type: type 2 Diabetes mellitus senior living insulin use: without truck terminal manager use Diabetes mellitus complication status: with hyperglycemia Chronic kidney disease N18.9 Chronic kidney disease stage: unspecified stage BPH loc w urin obs/LUTS N40.1
[2020-11-22 12:00] LABS: Glucose Point of Care 135 mg/dL (70-110)
[2020-11-22] MEDS: morphine ER (12 HR) 15 mg Tablet PO ×2 (12:02→22:08)
--- NOTE | 2020-11-22 12:30 | PM.CONSULT ---
Providers/Reason For Consult Consulting Physician/Specialty*: hospitalist Reason for Consult*: left knee swelling Attending Physician: Connor Lima MD History of Present Illness History of Present Illness Pedro Gomez is a 70 year old male presented to the emergency room with chief complaint of pain and swelling in his left knee. Symptoms began Saturday or Saturday with pain followed by swelling. He denies any trauma to the knee. He has had warmth and decreased range of motion associated with it. In the emergency room he had fluid drainage of cloudy synovial fluid Review of Systems Const: Reports: fever(s) and chills; Denies: body aches or change in appetite Eyes: Denies: change in vision, blurry vision or eye discomfort ENMT: Denies: throat pain, dental pain or nasal congestion Card: Denies: chest pain, palpitations or edema Resp: Denies: dyspnea, productive cough or non-productive cough GI: Denies: abdominal pain, nausea, vomiting, diarrhea or constipation : Reports: urinary frequency, difficulty starting urination and nocturia; Denies: dysuria or hematuria Musc: Reports: extremity pain, extremity swelling, joint pain, joint swelling, joint redness, joint warmth, joint stiffness and limited range of motion Skin/Breast: Denies: rash or pruritus Neuro: Reports: difficulty walking (Secondary to pain in his left knee); Denies: headache(s), numbness in extremities, weakness in extremities or sensory changes Psych: Denies: anxiety or depression Travis/Lymph: Denies: easy bruising or easy bleeding All/Imm: Denies: urticaria Meds/Allergies Home Medications and Allergies Home Medications Medication Instructions Recorded Confirmed Last Taken Type allopurinol 300 mg tablet 300 mg PO DAILY 06/03/19 11/21/20 11/21/20 History tramadol 50 mg PO DAILY 10/10/20 11/21/20 11/21/20 History tamsulosin 0.8 mg PO BEDTIME 11/21/20 11/21/20 11/20/20 History Allergies Allergy/AdvReac Type Severity Reaction Status Date / Time No Known Allergies Allergy Verified 11/04/20 15:57 Current Medications Current Medications Generic Name Dose Route Start Last Admin Trade Name Freq PRN Reason Stop Dose Admin Hydrocodone Bitart/Acetaminophen 1 tab 11/21/20 22:34 11/22/20 07:57 Hydrocodone-Acetaminophen 5-325 Mg Tablet PO 1 tab Q4H PRN Administration MODERATE TO SEVERE PAIN Allopurinol 300 mg 11/22/20 09:00 11/22/20 07:58 Allopurinol 300 Mg Tablet PO 300 mg DAILY PELON Administration Docusate Sodium 100 mg 11/22/20 09:00 11/22/20 07:58 Docusate Sodium 100 Mg Capsule PO 100 mg BID PELON Administration Ampicillin Sodium/Sulbactam 50 mls @ 100 mls/hr 11/21/20 22:45 11/22/20 12:02 Sodium 3 gm/ Sodium Chloride IV 100 mls/hr Q6H PELON Administration Protocol Potassium Chloride/Sodium Chloride 20 meq in 1,000 mls @ 75 mls/hr 11/21/20 22:45 11/21/20 23:40 Sodium Chlor 0.45% +Kcl 20 Meq IV 75 mls/hr .[id number] PELON Administration Vancomycin/PEG/NADA/Lysine/Water 1,500 mg in 300 mls @ 150 mls/hr 11/22/20 08:00 11/22/20 10:21 Vancocin IV Infused Q18H PELON Infusion Insulin Aspart 0 unit 11/22/20 08:00 11/22/20 08:04 Insulin Aspart 100 Unit/1 Ml SUBCUT Not Given TIDWM [facility] Protocol Morphine Sulfate 4 mg 11/21/20 22:34 11/22/20 12:10 Morphine 4 Mg/Ml Sdv 1 Ml IVP 4 mg Q4H PRN Administration SEVERE PAIN Morphine Sulfate 15 mg 11/22/20 11:45 11/22/20 12:02 Morphine Er (12 Hr) 15 Mg Tablet PO 15 mg BID PELON Administration Tamsulosin HCl 0.8 mg 11/21/20 23:15 11/21/20 23:40 Tamsulosin 0.4 Mg Capsule PO 0.8 mg BEDTIME PELON Administration Additional Medication Information I personally reviewed home medication list and medications received day of admission thus far. In the emergency room he received vancomycin, Zofran, Dilaudid. PFSH Acute PFSH: Medical History (Updated 11/21/20 @ 23:33 by Macrina Ignacio MD) BPH loc w urin obs/LUTS Chronic kidney disease Identified September 2020 although had been on Bactrim prior to this, I do not have baseline laboratory studies otherwise. Renal ultrasound at the time demonstrated numerous bilateral cysts and complex cysts. Diabetes A1c 09/2020 6.3 DJD (degenerative joint disease) Elevated PSA Gout Left inguinal hernia Surgical History (Updated 11/21/20 @ 22:50 by Macrina Ignacio MD) H/O eye surgery H/O total hip arthroplasty Bilateral H/O vasectomy Family History Family/Other CAD (coronary artery disease) Cancer Lung Stroke Mother Parkinson disease Social History (Updated 11/21/20 @ 22:48 by Macrina Ignacio MD) Smoking and tobacco status: never smoked Alcohol intake: never Substance/Drug Use: never Marital status: Current occupational status: retired Vitals/I&O/Wt Last Vital Signs Temp 98.5 F 11/22/20 11:49 Pulse 52 L 11/22/20 11:49 Resp 18 11/22/20 12:10 BP 144/75 11/22/20 11:49 Pulse Ox 97 11/22/20 11:49 11/21/20 11/22/20 11/22/20 22:59 06:59 14:59 Intake Total 250 / 250 340 / 590 300 / 300 Output Total 260 / 260 750 / 750 Balance 250 / 250 80 / 330 -450 / -450 Weight last 48 hrs Weight 186 lb 6 oz Weight 182 lb Physical Exam Narrative: EXAM NARRATIVE: GENERAL: Patient in no acute distress. CARDIAC: Regular rate and rhythm. CHEST: Normal inspiratory effort, normal respiratory rate. ABDOMEN: Soft and nontender. SKIN: Clear, warm and intact. NEURO?PSYCH: The patient is alert and oriented to person, place and time. Left knee swelling painful to ROM Data Micro: Micro: Microbiology 11/21/20 19:22 Gram Stain - Final Synovial Fluid 11/21/20 23:50 Blood Culture - Pr eliminary Blood SPECIMEN [facility] SERAFIN 11/21/20 23:46 Blood Culture - Pr eliminary Blood SPECIMEN [facility] A&P Assessment and plan (1) Left knee pain: Awaiting pathology and cultures of left knee. At this point patient had his elbow washout by Dr. Briceño. This was done couple weeks ago he never grew any bacteria at this time. Still awaiting cultures and crystal from the aspiration done in the ER. At this point have no plans to take him to the operating room unless cultures are positive based on patient's presentations of joint swelling with negative cultures. 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
[2020-11-22] MEDS: sodium chlor 0.45% +KCl 20 mEq 20 MEQ/1,000 ML BAG 75 MEQ IV (14:39)
--- NOTE | 2020-11-22 15:33 | PC.NURSE ---
I reported the temp to the nurse 101.4
[2020-11-22] MEDS: acetaminophen 325 mg Tablet 650 MG PO ×2 (15:51→18:25)
[2020-11-22 17:07] LABS: Glucose Point of Care 166 mg/dL (70-110)
--- NOTE | 2020-11-22 17:53 | PC.NURSE ---
dr. villalobos notified of patients temperature.
--- NOTE | 2020-11-22 18:23 | PC.NURSE ---
verbal order from dr villalobos received to give another dose of tylenol.
[2020-11-22 20:41] LABS: Glucose Point of Care 152 mg/dL (70-110)
[2020-11-22] MEDS: sennosides 8.6 mg Tablet 17.2 MG PO (22:01)
[2020-11-22] MEDS: tamsulosin 0.4 mg Capsule 0.8 MG PO (22:02)
--- NOTE | 2020-11-22 22:29 | USCV_ITS ---
Jason Pedro Age: 70 Gender: M : 1950 Exam Date: 11/22/2020 09:19 Ordering Phys: Macrina Ignacio MD Technologist: Exam Location: [facility] [place] Indication: GOUT BP: 134 / 76 HR: 58 Rhythm: Sinus Technical Quality: MEASUREMENTS (Male / Female) Normal Values 2D ECHO LV Diastolic Diameter PLAX 4.2 cm 4.2 - 5.9 / 3.9 - 5.3 cm LV Systolic Diameter PLAX 2.6 cm IVS Diastolic Thickness 1.2 cm 0.6 - 1.0 / 0.6 - 0.9 cm IVS Systolic Thickness 1.3 cm LVPW Diastolic Thickness 1.2 cm 0.6 - 1.0 / 0.6 - 0.9 cm LVPW Systolic Thickness 1.2 cm LVOT Diameter 2.1 cm LV Ejection Fraction 2D Teich 69.1 % LA Diameter 2.9 cm LA Width 3.6 cm LA Height 5.0 cm RA Width 3.6 cm RA Height 4.6 cm Aorta at Sinotubular Diameter 3.0 cm DOPPLER AV Peak Velocity 144.0 cm/s LVOT Peak Velocity 113.0 cm/s AV Area Cont Eq vti 3.3 cm squared AV Area Cont Eq pk 2.7 cm squared MV Area PHT 5.0 cm squared Mitral E to A Ratio 1.0 MV E' Velocity 48.5 cm/s Mitral E to MV E' Ratio 8.8 Mitral E to LV E' Lateral Ratio 7.7 Mitral E to LV E' Septal Ratio 10.3 TR Peak Velocity 171.0 cm/s TR Peak Gradient 11.7 mmHg FINDINGS Left Ventricle Normal left ventricular size and systolic function, EF 69% . Mild left ventricular hypertrophy. No regional wall motion abnormalities. Right Ventricle The right ventricle is normal in size and function. Right Atrium The right atrium is normal in size. Left Atrium The left atrium is normal in size. Mitral Valve Trace to mild mitral valve regurgitation. Aortic Valve No gross abnormalities noted Tricuspid Valve No gross abnormalities noted Pulmonic Valve No gross abnormalities noted Pericardium Normal pericardium without effusion. Aorta Normal ascending aorta dimension. CONCLUSIONS Normal left ventricular size and systolic function, EF 69% . Mild left ventricular hypertrophy. No regional wall motion abnormalities. Trace to mild mitral valve regurgitation. There is no pericardial effusion. There are no intracardiac masses. No previous study is available for comparison. Dr Grayson Isaac MD FACC (Electronically Signed) Final Date: 22 November 2020 18:17 S
[2020-11-23] VITALS (8 sets, daily range): BP systolic 107–135; BP diastolic 61–72; PULSE 52–92; RESP 16–22; TEMP 36.8–37.6; O2SAT 93–97
[2020-11-23] MEDS: vancomycin 1,500 MG/300 ML PIGGYBACK 150 MG IV ×2 (03:14→19:40)
[2020-11-23 03:20] LABS: Basophils # 0.1 10^3/uL (0.0-0.1); Basophils % 0.7 %; Eosinophils # 0.1 10^3/uL (0.0-0.8); Eosinophils % 0.5 %; Hematocrit 37.3 % (42.0-52.0); Lymphocytes # 1.4 10^3/uL (0.8-4.8); Lymphocytes % 13.4 %; Mean Corpuscular HGB Conc 32.2 g/dL (30.0-36.0); Mean Corpuscular Hemoglobin 29.4 pg (28.0-34.0); Mean Corpuscular Volume 91.4 fl (80-94); Mean Platelet Volume 10.1 fL (7.4-10.4); Monocytes # 1.7 10^3/uL (0.2-0.9); Monocytes % 15.9 %; Neutrophils # 7.35 10^3/uL (1.8-7.7); Nucleated Red Blood Cells % 0 %; Platelet Count 449 10^3/cmm (130-400); Red Blood Count 4.08 10^6/uL (4.1-5.3); Red Cell Distribution Width 13.8 % (12.1-15.1); White Blood Count 10.6 10^3/uL (4.0-10.0)
[2020-11-23 03:35] LABS: C Reactive Protein 203.8 mg/L (0.0-4.9)
[2020-11-23 03:43] LABS: Anion Gap 13.2 (5-19); Blood Urea Nitrogen 17 mg/dL (8-23); Calcium 8.8 mg/dL (8.5-10.5); Carbon Dioxide 27 mmol/L (22-29); Chloride 100 mmol/L (98-107); Glomerular Filtration Rate 54.6 mL/min (90-130); Glucose 121 mg/dL (65-115); Osmolality Calculated 285 mOsm/kg (285-295); Potassium 4.2 mmol/L (3.5-5.1); Sodium 136 mmol/L (136-145)
[2020-11-23 05:03] LABS: Erythrocyte Sedimentation Rate 56 mm/hr (0-10)
[2020-11-23] MEDS: ampicillin-sulbactam 3 GM in sodium chloride 0.9% (plus) 50 ML IV ×4 (05:30→22:50)
[2020-11-23 06:44] LABS: Glucose Point of Care 116 mg/dL (70-110)
--- NOTE | 2020-11-23 07:20 | PM.PN ---
Subjective Subjective: Interval history: Patient states feels little bit better today. Vitals/I&O/Wt Last Vital Signs Temp 99.3 F 11/23/20 04:00 Pulse 65 11/23/20 04:00 Resp 17 11/23/20 04:00 BP 111/67 11/23/20 04:00 Pulse Ox 93 11/23/20 04:00 11/22/20 11/23/20 11/23/20 22:59 06:59 14:59 Intake Total 50 / 1760 400 / 2160 Output Total 800 / 1950 200 / 2150 Balance -750 / -190 200 / 10 Weight last 48 hrs Weight 186 lb 6 oz Weight 182 lb Physical Exam Narrative: EXAM NARRATIVE: Left knee still swollen. Data : 11/23/20 02:25 11/23/20 02:25 Micro: Microbiology 11/21/20 23:50 Blood Culture - Preliminary Blood NEGATIVE TO DATE 11/21/20 23:46 Blood Culture - Preliminary Blood NEGATIVE TO DATE 11/22/20 21:30 Blood Culture - Preliminary Blood SPECIMEN COLLECTED 11/22/20 21:27 Blood Culture - Preliminary Blood SPECIMEN COLLECTED 11/21/20 19:22 Gram Stain - Final Synovial Fluid A&P Assessment and plan (1) Left knee pain: Awaiting labs and cultures of left knee. 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
--- NOTE | 2020-11-23 08:54 | P.PN_ITS ---
Subjective Subjective: Interval history: Patient was seen and examined today, continues to complain of severe left knee pain. Medications: Reviewed: Yes Medication Review Details: I personally reviewed home medication list and medications received day of admission thus far. In the emergency room he received vancomycin, Zofran, Dilaudid. Vitals/I&O/Wt Last Vital Signs Temp 99.7 F H 11/23/20 08:23 Pulse 52 L 11/23/20 08:23 Resp 16 11/23/20 08:23 BP 125/66 11/23/20 08:23 Pulse Ox 97 11/23/20 08:23 11/22/20 11/23/20 11/23/20 22:59 06:59 14:59 Intake Total 50 / 1760 400 / 2160 Output Total 800 / 1950 200 / 2150 800 / 800 Balance -750 / -190 200 / 10 -800 / -800 Weight last 48 hrs Weight 84.538 kg Weight 82.554 kg Physical Exam Const: COMMON NORMALS: patient oriented x3 HENMT: COMMON NORMALS: normocephalic and atraumatic HEAD & SCALP: normoc ephalic and atraumatic Resp: COMMON NORMALS: clear to auscultation bilaterally AUSCULTATION: clear to auscultation bilaterally Cardio: COMMON NORMALS: regular rate, regular rhythm, S1 normal heart sound present, S2 normal heart sound present, No gallops present (Cardio), No murmurs present (Cardio), No rub (Cardio) and Peripheral pulses 2+ throughout RATE: regular rate RHYTHM: regular rhythm HEART SOUNDS: S1 normal heart sound present and S2 normal heart sound present PERIPHERAL PULSES: Peripheral pulses 2+ throughout GI: COMMON NORMALS: Normal to inspection, nondistended, normoactive bowel sounds present, Soft to palpation, non-tender, No hepatosplenomegaly present and no masses AUSCULTATION: Yes normoactive bowel sounds PALPATION: Yes Soft to palpation and Yes No hepatosplenomegaly present RECTAL EXAM: Yes deferred Extremity: OTHER: Left knee erythema swelling, increased warmth and tenderness present. Right knee Normal Neuro: COMMON NORMALS: patient oriented x3 Data : 11/23/20 02:25 11/23/20 02:25 Micro: Microbiology 11/21/20 19:22 Gram Stain - Final Synovial Fluid 11/21/20 23:50 Blood Culture - Preliminary Blood NEGATIVE TO DATE 11/21/20 23:46 Blood Culture - Preliminary Blood NEGATIVE TO DATE 11/22/20 21:30 Blood Culture - Preliminary Blood SPECIMEN COLLECTED 11/22/20 21:27 Blood Culture - Preliminary Blood SPECIMEN COLLECTED A&P Assessment and plan (1) Left knee pain: Current diagnosis is septic arthritis as that would be the most important to address emergently. He had left olecranon septic bursitis in September and reports being hospitalized at [facility] for several days for an infection somewhere else recently though not able to provide details. From what I can tell no organisms were identified from left olecranon bursa last month. Fluid this evening from the left knee with approximately 40,000 white blood cells and predominance of PMNs. He has, however, been on recent antibiotics by his report. Review of external records shows Levaquin and cefdinir were prescribed mid October and doxycycline and Bactrim were prescribed in September. Records indicate a history of gout and he is on allopurinol chronically. Uric acid level in September was 4.2. He has a history of bilateral hip replacement. Findings could be consistent with a partially treated bacterial infection, inflammatory process with partially treated infection, or inflammatory process without infection. He does have elevated CRP greater than 100 on 2 occasions now more than a month apart. Sed rate only mildly elevated around 30 both times. I do not see any history of inflammatory/immunology studies here. He has a history of rotator cuff tear in the right shoulder with pain in the right shoulder but denies any other joint pains currently apart from the left knee. Status: Acute Qualifiers: Chronicity: acute Qualified Code(s): M25.562 - Pain in left knee (2) Septic arthritis: Status: Acute Qualifiers: Laterality: left Septic arthritis location: knee Septic arthritis organism: due to unspecified organism Qualified Code(s): M00.9 - Pyogenic arthritis, unspecified (3) Septic olecranon bursitis of left elbow: Last month Status: Resolved (4) Rotator cuff tear arthropathy of right shoulder: Chronic, has not been addressed surgically due to infections Status: Chronic (5) H/O total hip arthroplasty: In the past Status: Chronic Qualifiers: Laterality: bilateral Qualified Code(s): Z96.643 - Presence of artificial hip joint, bilateral (6) Gout: Chronically on allopurinol, recent uric acid levels within normal range Status: Chronic Qualifiers: Gout site: unspecified site Gout etiology: unspecified cause Chronicity: unspecified Qualified Code(s): M10.9 - Gout, unspecified (7) Diabetes: Patient denies diagnosis, A1c on October 10 was 6.3, not on any chronic treatment or dietary modifications Status: Acute Qualifiers: Diabetes mellitus type: type 2 Diabetes mellitus rn long term care insulin use: without halfway use Diabetes mellitus complication status: with hyperglycemia Qualified Code(s): E11.65 - Type 2 diabetes mellitus with hyperglycemia (8) Chronic kidney disease: Baseline creatinine looks to be around 1.5 from available records here although caveat is that patient had been on Bactrim prior to the only available comparative labs with we have. In addition he reports that he had been on some blood pressure medications that were stopped when he was identified as having chronic kidney disease. Presumptively, based on available information stage IIIb by calculations but await labs from this evening. Renal ultrasound done in September demonstrated numerous bilateral cyst and complex cyst and recommendation wa s for further evaluation. He has been referred to nephrology in [place]. Status: Chronic Qualifiers: Chronic kidney disease stage: unspecified stage Qualified Code(s): N18.9 - Chronic kidney disease, unspecified (9) BPH loc w urin obs/LUTS: Chronically on Flomax and has seen Dr. Manzo Status: Chronic Additional A&P Information Left knee pain and swelling: Rule out septic arthritis. Versus inflammatory arthritis Vancomycin and Unasyn S/p left knee arthrocentesis : synovial fluid was collected in the emergency room Synovial fluid culture:NTD Crystal analysis : Negative Blood cultures: Negative till date: Rheumatoid factor:12 LEANDRO: Negative Ana Lilia 1 antibody: Negative SSA SSB antibody: Negative Anti-Dill antibody: Negative PRODUCTION BORING MACHINE OPERATOR antibody: Negative Anti-SCL antibody: Negative Antidouble-stranded DNA : Pending Anticentromere antibody: Negative Thyroid peroxidase antibody: Negative Complement C3-C4 CH 50:Normal Monitor sed rate and CRP: Uric acid normal CV venous duplex LE LT:No evidence of deep vein thrombosis. 2 DeCHO : Normal LV size and systolic function: LVEF 69%, no RWMA , no gross valvular abnormality.No valvular vegetation appreciated. white blood cell tagged scan Continue allopurinol Orthopedics on board: Recommended conservative management for no Hemoglobin A1c was 6.3 in September of this year, not on anything chronically for diabetes, will add sliding scale insulin currently, monitor blood sugars, request diabetic diet education and consideration will need to be given to manag ement at the time of discharge or upon follow-up with PCP Check electrolytes and monitor renal function with treatment He has been referred to see Dr. Jaime in [place] for his kidney function and has an appointment on December 02 Reports some elevated blood pressures in the past necessitating medication; review of external medication records shows that he had been on FER inhibitor followed by [facility], blood pressures are not ideal currently but he is complaining of pain, will monitor for need to intervene Continue home Flomax Intervention for shoulder pain will again have to be delayed until inflammatory/infectious process is sorted out Supportive care otherwise DVT prophylaxis: Currently with SCDs pending orthopedic consultation Code Status: Full code Attestations Medical Necessity Statement*: Patient needs to be in hospital for management of left knee pain and swelling. 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 Diagnoses Left knee pain M25.562 Chronicity: acute Septic arthritis M00.9 Laterality: left Septic arthritis location: knee Septic arthritis organism: due to unspecified organism Septic olecranon bursitis of left elbow M71.122 Rotator cuff tear arthropathy of right shoulder M75.101; M12.811 H/O total hip arthroplasty Z96.643 Laterality: bilateral Gout M10.9 Gout site: unspecified site Gout etiology: unspecified cause Chronicity: unspecified Diabetes E11.65 Diabetes mellitus type: type 2 Diabetes mellitus halfway insulin use: without rn long term care use Diabetes mellitus complication status: with hyperglycemia Chronic kidney disease N18.9 Chronic kidney disease stage: unspecified stage BPH loc w urin obs/LUTS N40.1
[2020-11-23] MEDS: sodium chlor 0.45% +KCl 20 mEq 20 MEQ/1,000 ML BAG 75 MEQ IV (09:35)
[2020-11-23] MEDS: docusate sodium 100 mg Capsule PO ×2 (09:35→18:31)
[2020-11-23] MEDS: allopurinol 300 mg Tablet PO (09:36)
[2020-11-23] MEDS: morphine ER (12 HR) 15 mg Tablet PO ×2 (10:28→22:49)
[2020-11-23 11:52] LABS: Glucose Point of Care 157 mg/dL (70-110)
[2020-11-23 14:26] LABS: CENTROMERE B ANTIBODY <1.0 NEG AI (<1.0 NEG); JO-1 ANTIBODY <1.0 NEG AI (<1.0 NEG); RNP ANTIBODY <1.0 NEG AI (<1.0 NEG); SCL-70 ANTIBODY <1.0 NEG AI (<1.0 NEG); SJOGREN'S ANTIBODY (SS-A) <1.0 NEG AI (<1.0 NEG); SM ANTIBODY <1.0 NEG AI (<1.0 NEG); SS-B <1.0 NEG AI (<1.0 NEG)
[2020-11-23 14:42] LABS: COMPLEMENT, TOTAL (CH50) >60 U/mL (31-60)
[2020-11-23 15:06] LABS: THYROID PEROXIDASE ANTIBODIES <1 IU/mL (<9)
[2020-11-23 15:11] LABS: COMPLEMENT COMPONENT C3C 149 mg/dL (82-185); COMPLEMENT COMPONENT C4C 42 mg/dL (15-53)
[2020-11-23 16:22] LABS: ANA SCREEN, IFA NEGATIVE (NEGATIVE)
[2020-11-23] MEDS: HYDROcodone-acetaminophen 5-325 mg Tablet 1 TAB PO ×2 (16:30→20:28)
[2020-11-23 16:57] LABS: Glucose Point of Care 148 mg/dL (70-110)
[2020-11-23] MEDS: sennosides 8.6 mg Tablet 17.2 MG PO (20:29)
[2020-11-23] MEDS: tamsulosin 0.4 mg Capsule 0.8 MG PO (20:29)
--- NOTE | 2020-11-23 22:29 | NM_ITS ---
WS: [id number] NUCLEAR MEDICINE TAGGED WHITE BLOOD CELL SCAN HISTORY: multiple septic joints COMPARISON: LEFT knee 2020 and 11/21/2020 TECHNIQUE: 21.3 mCi of TC 99m Ceretec tagged white blood cells are injected intravenously. Whole body imaging is performed in the anterior and posterior planes. Whole body imaging is performed in the an terior and posterior planes obtained at 6 hours. Focal area of uptake at the LEFT knee is associated with the LEFT medial tibial plateau. This involve s less than 50% of the tibial plateau. There is also very mild diffuse soft tissue uptake within the knee joint as compared to the RIGHT knee. Symmetric uptake at the shoulder joints. Elbows are not included on this examination and their entire knee. There is normal uptake with in the liver and spleen. Normal uptake in the vertebral bodies. NM/NM CERETEC WBC scan* [id number] IMPRESSION: 1. Focal area of white blood cell uptake involving the medial LEFT tibial plat eau with additional soft tissue uptake throughout the knee joint. Findings susp icious for a septic arthritis and a focal area of osteomyelitis at the medial t ibial plateau. 2. No additional areas suspicious for septic joint or abnormal uptake.
[2020-11-24 03:16] LABS: Basophils # 0.1 10^3/uL (0.0-0.1); Basophils % 0.7 %; Eosinophils # 0.1 10^3/uL (0.0-0.8); Eosinophils % 0.9 %; Hematocrit 35.5 % (42.0-52.0); Hemoglobin 11.5 g/dL (11.7-16.6); Lymphocytes # 1.5 10^3/uL (0.8-4.8); Lymphocytes % 15.4 %; Mean Corpuscular HGB Conc 32.4 g/dL (30.0-36.0); Mean Corpuscular Hemoglobin 29.2 pg (28.0-34.0); Mean Corpuscular Volume 90.1 fl (80-94); Monocytes # 1.2 10^3/uL (0.2-0.9); Monocytes % 12.3 %; Neutrophils # 6.69 10^3/uL (1.8-7.7); Neutrophils % 70.2 %; Nucleated Red Blood Cells % 0 %; Platelet Count 493 10^3/cmm (130-400); Red Blood Count 3.94 10^6/uL (4.1-5.3); Red Cell Distribution Width 13.9 % (12.1-15.1); White Blood Count 9.5 10^3/uL (4.0-10.0)
[2020-11-24 03:42] LABS: C Reactive Protein 158.8 mg/L (0.0-4.9)
[2020-11-24 03:45] LABS: Anion Gap 12.5 (5-19); Blood Urea Nitrogen 18 mg/dL (8-23); Calcium 8.7 mg/dL (8.5-10.5); Carbon Dioxide 27 mmol/L (22-29); Chloride 101 mmol/L (98-107); Glomerular Filtration Rate 66.2 mL/min (90-130); Glucose 115 mg/dL (65-115); Osmolality Calculated 285 mOsm/kg (285-295); Potassium 4.5 mmol/L (3.5-5.1); Sodium 136 mmol/L (136-145)
[2020-11-24 04:00] VITALS: BP 130/71; PULSE 59; RESP 20; TEMP 37.1; O2SAT 95
[2020-11-24 04:03] LABS: Erythrocyte Sedimentation Rate 67 mm/hr (0-10)
[2020-11-24] MEDS: ampicillin-sulbactam 3 GM in sodium chloride 0.9% (plus) 50 ML IV ×4 (04:32→21:40)
[2020-11-24] MEDS: sodium chlor 0.45% +KCl 20 mEq 20 MEQ/1,000 ML BAG 75 MEQ IV ×2 (04:36→20:25)
[2020-11-24 06:17] LABS: Glucose Point of Care 113 mg/dL (70-110)
[2020-11-24 08:00] VITALS: BP 133/74; PULSE 59; RESP 16; TEMP 37; O2SAT 92
[2020-11-24] MEDS: docusate sodium 100 mg Capsule PO ×2 (08:54→17:45)
[2020-11-24] MEDS: allopurinol 300 mg Tablet PO (08:54)
[2020-11-24] MEDS: HYDROcodone-acetaminophen 5-325 mg Tablet 1 TAB PO ×3 (08:59→18:20)
[2020-11-24] MEDS: morphine ER (12 HR) 15 mg Tablet PO ×2 (10:41→21:40)
--- NOTE | 2020-11-24 11:21 | PC.SOCIAL ---
IMM Update Page 2 of [facility] updated with patient. Verbalized understanding with no questions at this time. Initialed, timed and dated.
[2020-11-24 11:39] VITALS: BP 122/68; PULSE 76; RESP 20; TEMP 36.9; O2SAT 94
[2020-11-24 12:02] LABS: Glucose Point of Care 169 mg/dL (70-110)
--- NOTE | 2020-11-24 12:50 | MRR_ITS ---
PROCEDURE INFORMATION: Exam: MR Left Lower Extremity Joint Without Contrast, Knee Exam date and time: 11/24/2020 12:50 PM Age: 70 years old Clinical indication: Left knee pain and swelling for 5 days. No known trauma. Left knee joint effusion. TECHNIQUE: Imaging protocol: MR of the Left lower extremity joint without contrast. Exam focused on the knee. COMPARISON: [facility] WBC scan* [id number] 11/23/2020 10:29 PM FINDINGS: Bones and cartilage: The medial patellofemoral retinaculum is intact. The lateral patellofemoral retinaculum is intact. There is a multi septated ganglion along the posterior and medial aspect of proximal tibia measuring 2.2 x 2.3 x 1.1 cm. This is likely related to the posterior joint capsule. There is marrow edema within the lateral tibial plateau that may reflect bone contusion. No fracture line is identified. Joint spaces: There is severe tricompartmental osteoarthritis extensive joint space narrowing and marginal spurring. There is extensive full-thickness cartilage loss in the medial and lateral compartments. There is partial-thickness cartilage loss in the patellofemoral compartment without definite full-thickness defect. Large knee joint effusion with synovitis. There is thickening and heterogeneity of the posterior joint capsule suggesting prior injury. There is possible partial tearing. Bursae: Moderate Apple cyst with an intra-articular body measuring 2.9 x 2.1 cm. Medial meniscus: There is tearing of the medial meniscus with medial extrusion of the meniscal body. There is a probable meniscal flap in the lateral gutter. Lateral meniscus: There is degeneration and tearing of the lateral meniscus. The lateral meniscus is intact. Anterior cruciate ligament: The anterior cruciate ligament is torn. Posterior cruciate ligament: The posterior cruciate ligament is intact. Medial capsule and supporting structures: There is edema adjacent to the medial collateral ligament suggesting sprain. Lateral capsule and supporting structures: The biceps femoris tendon is intact. The iliotibial band is intact. Extensor mechanism of knee: Patella baja is noted; correlate for quadriceps dysfunction. Muscles: There is edema in the popliteus muscle which may reflect strain. There is edema involving the vastus medialis and biceps femoris muscles suspicious for strains. MR/MR knee LT wo con* [id number] IMPRESSION: 1. Severe tricompartmental osteoarthritis. 2. Large knee joint effusion with synovitis. 3. Moderate Apple cyst with ossified intra-articular body. 4. The anterior cruciate ligament is torn. 5. Patella baja is noted; correlate for quadriceps dysfunction. 6. Tearing of the medial meniscus with medial extrusion of the meniscal body. 7. Degeneration and tearing of the lateral meniscus. 8. Edema in the popliteus , vastus medialis and biceps femoris muscles suspicious for strains. 9. Edema adjacent to the medial collateral ligament suggesting sprain. 10. There is thickening and heterogeneity of the posterior joint capsule suggesting prior injury. There is possible partial tearing. 11. Multi septated ganglion along the posterior and medial aspect of proximal tibia that is likely related to the posterior joint capsule. 12. There is marrow edema within the lateral tibial plateau that may reflect bone contusion. No fracture line is identified.
--- NOTE | 2020-11-24 13:00 | P.PN_ITS ---
Subjective Subjective: Interval history: unchanged Vitals/I&O/Wt Last Vital Signs Temp 98.4 F 11/24/20 11:39 Pulse 76 11/24/20 11:39 Resp 20 H 11/24/20 11:39 BP 122/68 11/24/20 11:39 Pulse Ox 94 11/24/20 11:39 11/23/20 11/24/20 11/24/20 22:59 06:59 14:59 Intake Total 1350 / 1760 750 / 2510 50 / 50 Output Total 300 / 1600 900 / 2500 400 / 400 Balance 1050 / 160 -150 / 10 -350 / -350 Physical Exam Narrative: EXAM NARRATIVE: unchanged Data : 11/24/20 02:13 11/24/20 02:13 Micro: Microbiology 11/21/20 19:22 Gram Stain - Final Synovial Fluid Body Fluid Culture - Preliminary 11/22/20 21:30 Blood Culture - Preliminary Blood NEGATIVE TO DATE 11/22/20 21:27 Blood Culture - Preliminary Blood NEGATIVE TO DATE A&P Assessment and plan (1) Left knee pain: I+D left knee tommow MRI left knee prior to surgrey Status: Acute Qualifiers: Chronicity: acute Qualified Code(s): M25.562 - Pain in left knee Attestations Medical Necessity Statement*: pain Coding Level of Care Code Acute Dock Operations Supervisor for Imtiaz Meyer Diagnoses Left knee pain M25.562 Chronicity: acute
--- NOTE | 2020-11-24 14:52 | PM.PN ---
Subjective Subjective: Interval history: Patient was seen and examined today, left knee pain and swelling has slightly improved. Medications: Reviewed: Yes Vitals/I&O/Wt Last Vital Signs Temp 98.4 F 11/24/20 11:39 Pulse 76 11/24/20 11:39 Resp 20 H 11/24/20 11:39 BP 122/68 11/24/20 11:39 Pulse Ox 94 11/24/20 11:39 11/23/20 11/24/20 11/24/20 22:59 06:59 14:59 Intake Total 1350 / 1760 750 / 2510 50 / 50 Output Total 300 / 1600 900 / 2500 400 / 400 Balance 1050 / 160 -150 / 10 -350 / -350 Physical Exam Const: COMMON NORMALS: patient oriented x3 HENMT: COMMON NORMALS: normocephalic and atraumatic HEAD & SCALP: normocephalic and atraumatic Resp: COMMON NORMALS: clear to auscultation bilaterally AUSCULTATION: clear to auscultation bilaterally Cardio: COMMON NORMALS: regular rate, regular rhythm, S1 normal heart sound present, S2 normal heart sound present, No gallops present (Cardio), No murmurs present (Cardio), No rub (Cardio) and Peripheral pulses 2+ throughout RATE: regular rate RHYTHM: regular rhythm HEART SOUNDS: S1 normal heart sound present and S2 normal heart sound present PERIPHERAL PULSES: Peripheral pulses 2+ throughout GI: COMMON NORMALS: Normal to inspection, nondistended, normoactive bowel sounds present, Soft to palpation, non-tender, No hepatosplenomegaly present and no masses AUSCULTATION: Yes normoactive bowel sounds PALPATION: Yes Soft to palpation and Yes No hepatosplenomegaly present RECTAL EXAM: Yes deferred Extremity: OTHER: Left knee erythema swelling, increased warmth and tenderness present. Right knee Normal Neuro: COMMON NORMALS: patient oriented x3 Data : 11/24/20 02:13 11/24/20 02:13 Micro: Microbiology 11/21/20 19:22 Gram Stain - Final Synovial Fluid Body Fluid Culture - Preliminary 11/22/20 21:30 Blood Culture - Preliminary Blood NEGATIVE TO DATE 11/22/20 21:27 Blood Culture - Preliminary Blood NEGATIVE TO DATE A&P Assessment and plan (1) Left knee pain: Current diagnosis is septic arthritis as that would be the most important to address emergently. He had left olecranon septic bursitis in September and reports being hospitalized at [facility] for several days for an infection somewhere else recently though not able to provide details. From what I can tell no organisms were identified from left olecranon bursa last month. Fluid this evening from the left knee with approximately 40,000 white blood cells and predominance of PMNs. He has, however, been on recent antibiotics by his report. Review of external records shows Levaquin and cefdinir were prescribed mid October and doxycycline and Bactrim were prescribed in September. Records indicate a history of gout and he is on allopurinol chronically. Uric acid level in September was 4.2. He has a history of bilateral hip replacement. Findings could be consistent with a partially treated bacterial infection, inflammatory process with partially treated infection, or inflammatory process without infection. He does have elevated CRP greater than 100 on 2 occasions now more than a month apart. Sed rate only mildly elevated around 30 both times. I do not see any history of inflammatory/immunology studies here. He has a history of rotator cuff tear in the right shoulder with pain in the right shoulder but denies any other joint pains currently apart from the left knee. Status: Acute Qualifiers: Chronicity: acute Qualified Code(s): M25.562 - Pain in left knee (2) Septic arthritis: Status: Acute Qualifiers: Laterality: left Septic arthritis location: knee Septic arthritis organism: due to unspecified organism Qualified Code(s): M00.9 - Pyogenic arthritis, unspecified (3) Septic olecranon bursitis of left elbow: Last month Status: Resolved (4) Rotator cuff tear arthropathy of right shoulder: Chronic, has not been addressed surgically due to infections Status: Chronic (5) H/O total hip arthroplasty: In the past Status: Chronic Qualifiers: Laterality: bilateral Qualified Code(s): Z96.643 - Presence of artificial hip joint, bilateral (6) Gout: Chronically on allopurinol, recent uric acid levels within normal range Status: Chronic Qualifiers: Gout site: unspecified site Gout etiology: unspecified cause Chronicity: unspecified Qualified Code(s): M10.9 - Gout, unspecified (7) Diabetes: Patient denies diagnosis, A1c on October 10 was 6.3, not on any chronic treatment or dietary modifications Status: Acute Qualifiers: Diabetes mellitus type: type 2 Diabetes mellitus senior living insulin use: without senior living use Diabetes mellitus complication status: with hyperglycemia Qualified Code(s): E11.65 - Type 2 diabetes mellitus with hyperglycemia (8) Chronic kidney disease: Baseline creatinine looks to be around 1.5 from available records here although caveat is that patient had been on Bactrim prior to the only available comparative labs with we have. In addition he reports that he had been on some blood pressure medications that were stopped when he was identified as having chronic kidney disease. Presumptively, based on available information stage IIIb by calculations but await labs from this evening. Renal ultrasound done in September demonstrated numerous bilateral cyst and complex cyst and recommendation was for further evaluation. He has been referred to nephrology in [place]. Status: Chronic Qualifiers: Chronic kidney disease stage: unspecified stage Qualified Code(s): N18.9 - Chronic kidney disease, unspecified (9) BPH loc w urin obs/LUTS: Chronically on Flomax and has seen Dr. Manzo Status: Chronic Additional A&P Information Left knee pain and swelling: Rule out septic arthritis. 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 2 DeCHO : Normal LV size and systolic function: LVEF 69%, no RWMA , no gross valvular abnormality.No valvular vegetation appreciated. MRI of the left knee without contrast:Severe tricompartmental osteoarthritis,Large knee joint effusion with synovitis,anterior cruciate ligament is torn.Tearing of the medial meniscus with medial extrusion of the meniscal body. Degeneration and tearing of the lateral meniscus. white blood cell tagged scan Continue allopurinol Orthopedics on board: I+D left knee in morning Hemoglobin A1c was 6.3 in September of this year, not on anything chronically for diabetes, will add sliding scale insulin currently, monitor blood sugars, request diabetic diet education and consideration will need to be given to management at the time of discharge or upon follow-up with PCP Check electrolytes and monitor renal function with treatment He has been referred to see Dr. Jaime in [place] for his kidney function and has an appointment on December 02 Reports some elevated blood pressures in the past necessitating medication; review of external medication records shows that he had been on FER inhibitor followed by [facility], blood pressures are not ideal currently but he is complaining of pain, will monitor for need to intervene Continue home Flomax Intervention for shoulder pain will again have to be delayed until inflammatory/infectious process is sorted out Supportive care otherwise DVT prophylaxis: Currently with SCDs pending orthopedic consultation Code Status: Full code Attestations Medical Necessity Statement*: Patient is to be in hospital for management of left knee pain and swelling. Coding Level of Care Code Acute Division Controller for Terrellg Fwd Diagnoses Left knee pain M25.562 Chronicity: acute Septic arthritis M00.9 Laterality: left Septic arthritis location: knee Septic arthritis organism: due to unspecified organism Septic olecranon bursitis of left elbow M71.122 Rotator cuff tear arthropathy of right shoulder M75.101; M12.811 H/O total hip arthroplasty Z96.643 Laterality: bilateral Gout M10.9 Gout site: unspecified site Gout etiology: unspecified cause Chronicity: unspecified Diabetes E11.65 Diabetes mellitus type: type 2 Diabetes mellitus remote computer terminal operator insulin use: without remote computer terminal operator use Diabetes mellitus complication status: with hyperglycemia Chronic kidney disease N18.9 Chronic kidney disease stage: unspecified stage BPH loc w urin obs/LUTS N40.1
[2020-11-24] MEDS: vancomycin 1,500 MG/300 ML PIGGYBACK 150 MG IV (15:34)
[2020-11-24 15:59] VITALS: BP 148/75; PULSE 61; RESP 20; TEMP 36.9; O2SAT 94
[2020-11-24 18:15] LABS: Glucose Point of Care 178 mg/dL (70-110)
[2020-11-24 20:00] VITALS: BP 117/75; PULSE 100; RESP 17; TEMP 37.4; O2SAT 91
[2020-11-24] MEDS: tamsulosin 0.4 mg Capsule 0.8 MG PO (20:26)
[2020-11-24] MEDS: sennosides 8.6 mg Tablet 17.2 MG PO (20:27)
[2020-11-24 21:03] LABS: Glucose Point of Care 180 mg/dL (70-110)
[2020-11-25] VITALS (15 sets, daily range): BP systolic 114–150; BP diastolic 59–79; PULSE 51–80; RESP 14–18; TEMP 36.3–37.1; O2SAT 90–96
[2020-11-25] MEDS: HYDROcodone-acetaminophen 5-325 mg Tablet 1 TAB PO ×3 (00:22→21:11)
[2020-11-25 03:31] LABS: Basophils # 0.1 10^3/uL (0.0-0.1); Basophils % 0.8 %; Eosinophils # 0.1 10^3/uL (0.0-0.8); Eosinophils % 1.2 %; Hematocrit 34.5 % (42.0-52.0); Hemoglobin 11.2 g/dL (11.7-16.6); Lymphocytes # 1.7 10^3/uL (0.8-4.8); Lymphocytes % 16.8 %; Mean Corpuscular HGB Conc 32.5 g/dL (30.0-36.0); Mean Corpuscular Hemoglobin 29.2 pg (28.0-34.0); Mean Corpuscular Volume 89.8 fl (80-94); Mean Platelet Volume 9.8 fL (7.4-10.4); Monocytes # 0.9 10^3/uL (0.2-0.9); Monocytes % 9.4 %; Neutrophils # 7.11 10^3/uL (1.8-7.7); Neutrophils % 71.5 %; Nucleated Red Blood Cells % 0 %; Platelet Count 493 10^3/cmm (130-400); Red Blood Count 3.84 10^6/uL (4.1-5.3); Red Cell Distribution Width 13.9 % (12.1-15.1)
[2020-11-25 04:10] LABS: Anion Gap 14.3 (5-19); Blood Urea Nitrogen 14 mg/dL (8-23); Carbon Dioxide 26 mmol/L (22-29); Chloride 99 mmol/L (98-107); Creatinine Clr Calc Pharmacy 80.8621; Glomerular Filtration Rate 83.4 mL/min (90-130); Glucose 119 mg/dL (65-115); Osmolality Calculated 282 mOsm/kg (285-295); Potassium 4.3 mmol/L (3.5-5.1); Sodium 135 mmol/L (136-145)
[2020-11-25] MEDS: ampicillin-sulbactam 3 GM in sodium chloride 0.9% (plus) 50 ML IV ×3 (05:17→17:30)
--- NOTE | 2020-11-25 06:38 | ANES.PREANE2 ---
Pre-Anesthetic Assessment Pre-Anesthetic Assessment: Height/Weight: Height 1.73 m Weight 84.538 kg Temp Pulse Resp BP Pulse Ox 98.1 F 56 L 18 128/70 95 11/25/20 04:00 11/25/20 04:00 11/25/20 04:00 11/25/20 04:00 11/25/20 04:00 Preop Diagnosis: Infected Left olecranon bursa Proposed Procedure: Operation Date: 11/25/20 07:00 Proposed Procedures p Incision & Drainage Lower Extremity(Left) - Alexandre Juarez, DO Familial anesthetic complications: None Was Beta Beto taken within 24 hours: N/A Was Clonidine taken within 24 hours: N/A Last intake: Intake Last Liquid Date 11/24/20 Last Liquid Time 22:00 Last Solid Date 11/24/20 Last Solid Time 19:00 Social: Social History: No alcohol and No tobacco Exam: Pre-Anes Outpt Exam: alert, oriented x 3, clear to auscultation bilaterally and regular rate & rhythm Airway: Cervical ROM: WNL MP: 3 Dentition: Full CV/HEM: CV/HEM: HTN : Comments: renal cysts Anesthetic Plan: ASA status: 2 Anesthesia: General Risk of > 500 ml blood loss (7ml/kg in children): No Meds/Allergies Current Medications: Current Medications Generic Name Dose Route Start Last Admin Trade Name Freq PRN Reason Stop Dose Admin Acetaminophen 650 mg 11/21/20 22:34 11/22/20 18:25 Acetaminophen 32 5 Mg Tablet PO 650 mg Q6H PRN Administration Mild/Mod Pain Or Temp >/= 101 Hydrocodone Bitart /Acetaminophen 1 tab 11/21/20 22:34 11/25/20 00:22 Hydrocodone-Acet aminophen 5-325 Mg Tablet PO 1 tab Q4H PRN Administration MODERATE TO SEVER E PAIN Allopurinol 300 mg 11/22/20 09:00 11/24/20 08:54 Allopurinol 300 Mg Tablet PO 300 mg DAILY PELON Administration Docusate Sodium 100 mg 11/22/20 09:00 11/24/20 17:45 Docusate Sodium 100 Mg Capsule PO 100 mg BID PELON Administration Ampicillin Sodium/ Sulbactam 50 mls @ 100 mls/ hr 11/21/20 22:45 11/25/20 05:56 Sodium 3 gm/ Sod ium Chloride IV Infused Q6H PELON Infusion Protocol Potassium Chloride /Sodium Chloride 20 meq in 1,000 m ls @ 75 mls/hr 11/21/20 22:45 11/24/20 20:25 Sodium Chlor 0.4 5% +Kcl 20 Meq IV 75 mls/hr .[id number] PELON Administration Vancomycin/PEG/NAD A/Lysine/Water 1,500 mg in 300 m ls @ 150 mls/hr 11/22/20 08:00 11/24/20 17:59 Vancocin IV Infused Q18H PELON Infusion Insulin Aspart 0 unit 11/22/20 21:00 11/24/20 20:42 Insulin Aspart 1 00 Unit/1 Ml SUBCUT Not Given BEDTIME PELON Protocol Insulin Aspart 0 unit 11/22/20 08:00 11/24/20 18:19 Insulin Aspart 1 00 Unit/1 Ml SUBCUT 2 unit TIDWM PELON Administration Protocol Morphine Sulfate 4 mg 11/21/20 22:34 11/22/20 12:10 Morphine 4 Mg/Ml Sdv 1 Ml IVP 4 mg Q4H PRN Administration SEVERE PAIN Morphine Sulfate 15 mg 11/22/20 22:00 11/24/20 21:40 Morphine Er (12 Hr) 15 Mg Tablet PO 15 mg BID@2200,1000 PELON Administration Senna 17.2 mg 11/22/20 21:00 11/24/20 20:27 Sennosides 8.6 M g Tablet PO 17.2 mg BEDTIME PELON Administration Tamsulosin HCl 0.8 mg 11/21/20 23:15 11/24/20 20:26 Tamsulosin 0.4 M g Capsule PO 0.8 mg BEDTIME PELON Administration Additional Medication Information: I personally reviewed home medication list and medications received day of admission thus far. In the emergency room he received vancomycin, Zofran, Dilaudid. PFSH Anesthesia PFSH: Medical History (Updated 11/21/20 @ 23:33 by Macrina Ignacio MD) BPH loc w urin obs/LUTS Chronic kidney disease Identified September 2020 although had been on Bactrim prior to this, I do not have baseline laboratory studies otherwise. Renal ultrasound at the time demonstrated numerous bilateral cysts and complex cysts. Diabetes A1c 09/2020 6.3 DJD (degenerative joint disease) Elevated PSA Gout Left inguinal hernia Surgical History (Updated 11/21/20 @ 22:50 by Macrina Ignacio MD) H/O eye surgery H/O total hip arthroplasty Bilateral H/O vasectomy Family History Family/Other CAD (coronary artery disease) Cancer Lung Stroke Mother Parkinson disease Social History (Updated 11/21/20 @ 22:48 by Macrina Ignacio MD) Smoking and tobacco status: never smoked Alcohol intake: never Substance/Drug Use: never Marital status: Current occupational status: retired Data Anesthesia CBC & Chem 7: 11/25/20 02:37 11/25/20 02:37 Other Labs: Laboratory Results - last 48 hr 11/21/20 11/23/20 11/23/20 23:46 06:20 10:47 WBC RBC Hgb Hct MCV MCH MCHC RDW Plt Count MPV Neut % (Auto) Lymph % (Auto) [place] % (Auto) Eos % (Auto) Baso % (Auto) Neut # (Auto) Lymph # (Auto) [place] # (Auto) Eos # (Auto) Baso # (Auto) Nucleated RBC % (auto) Nucleated RBCs # ESR Sodium Potassium Chloride Carbon Dioxide Anion Gap BUN Creatinine GFR Calculation Glucose POC Glucose 116 H 157 H Calculated Osmolality Calcium C-Reactive Protein LEANDRO IFA Animal Tis Res Negative JONO-1 Antibody <1.0 neg SS-A Antibody <1.0 neg SS-B Antibody <1.0 neg Sm (Dill) Antibody <1.0 neg RIVETING MACHINE OPERATOR AUTOMATIC Antibody <1.0 neg Scl-70 Antibody <1.0 neg Centromere B Antibody <1.0 neg Thyroid Peroxidase Ab <1 Complement C3c 149 Complement C4c 42 CH50 Classical Pathway >60 H 11/23/20 11/24/20 11/24/20 16:45 02:13 02:13 WBC RBC Hgb Hct MCV MCH MCHC RDW Plt Count MPV Neut % (Auto) Lymph % (Auto) [place] % (Auto) Eos % (Auto) Baso % (Auto) Neut # (Auto) Lymph # (Auto) [place] # (Auto) Eos # (Auto) Baso # (Auto) Nucleated RBC % (auto) Nucleated RBCs # ESR 67 H Sodium Potassium Chloride Carbon Dioxide Anion Gap BUN Creatinine GFR Calculation Glucose POC Glucose 148 H Calculated Osmolality Calcium C-Reactive Protein 158.8 H LEANDRO IFA Animal Tis Res JONO-1 Antibody SS-A Antibody SS-B Antibody Sm (Dill) Antibody RIVETING MACHINE OPERATOR AUTOMATIC Antibody Scl-70 Antibody Centromere B Antibody Thyroid Peroxidase Ab Complement C3c Complement C4c CH50 Classical Pathway 11/24/20 11/24/20 11/24/20 02:13 02:13 06:04 WBC 9.5 RBC 3.94 L Hgb 11.5 L Hct 35.5 L MCV 90.1 MCH 29.2 MCHC 32.4 RDW 13.9 Plt Count 493 H MPV 10.0 Neut % (Auto) 70.2 Lymph % (Auto) 15.4 [place] % (Auto) 12.3 Eos % (Auto) 0.9 Baso % (Auto) 0.7 Neut # (Auto) 6.69 Lymph # (Auto) 1.5 [place] # (Auto) 1.2 H Eos # (Auto) 0.1 Baso # (Auto) 0.1 Nucleated RBC % (auto) 0 Nucleated RBCs # 0.0 ESR Sodium 136 Potassium 4.5 Chloride 101 Carbon Dioxide 27 Anion Gap 12.5 BUN 18 Creatinine 1.1 GFR Calculation 66.2 L Glucose 115 POC Glucose 113 H Calculated Osmolality 285 Calcium 8.7 C-Reactive Protein LEANDRO IFA Animal Tis Res JONO-1 Antibody SS-A Antibody SS-B Antibody Sm (Dill) Antibody RIVETING MACHINE OPERATOR AUTOMATIC Antibody Scl-70 Antibody Centromere B Antibody Thyroid Peroxidase Ab Complement C3c Complement C4c CH50 Classical Pathway 11/24/20 11/24/20 11/24/20 11:36 18:11 20:40 WBC RBC Hgb Hct MCV MCH MCHC RDW Plt Count MPV Neut % (Auto) Lymph % (Auto) [place] % (Auto) Eos % (Auto) Baso % (Auto) Neut # (Auto) Lymph # (Auto) [place] # (Auto) Eos # (Auto) Baso # (Auto) Nucleated RBC % (auto) Nucleated RBCs # ESR Sodium Potassium Chloride Carbon Dioxide Anion Gap BUN Creatinine GFR Calculation Glucose POC Glucose 169 H 178 H 180 H Calculated Osmolality Calcium C-Reactive Protein LEANDRO IFA Animal Tis Res JONO-1 Antibody SS-A Antibody SS-B Antibody Sm (Dill) Antibody RIVETING MACHINE OPERATOR AUTOMATIC Antibody Scl-70 Antibody Centromere B Antibody Thyroid Peroxidase Ab Complement C3c Complement C4c CH50 Classical Pathway 11/25/20 11/25/20 02:37 02:37 WBC 10.0 RBC 3.84 L Hgb 11.2 L Hct 34.5 L MCV 89.8 MCH 29.2 MCHC 32.5 RDW 13.9 Plt Count 493 H MPV 9.8 Neut % (Auto) 71.5 Lymph % (Auto) 16.8 [place] % (Auto) 9.4 Eos % (Auto) 1.2 Baso % (Auto) 0.8 Neut # (Auto) 7.11 Lymph # (Auto) 1.7 [place] # (Auto) 0.9 Eos # (Auto) 0.1 Baso # (Auto) 0.1 Nucleated RBC % (auto) 0 Nucleated RBCs # 0.0 ESR Sodium 135 L Potassium 4.3 Chloride 99 Carbon Dioxide 26 Anion Gap 14.3 BUN 14 Creatinine 0.9 GFR Calculation 83.4 L Glucose 119 H POC Glucose Calculated Osmolality 282 L Calcium 9.0 C-Reactive Protein LEANDRO IFA Animal Tis Res JONO-1 Antibody SS-A Antibody SS-B Antibody Sm (Dill) Antibody RIVETING MACHINE OPERATOR AUTOMATIC Antibody Scl-70 Antibody Centromere B Antibody Thyroid Peroxidase Ab Complement C3c Complement C4c CH50 Classical Pathway Micro: Microbiology 11/21/20 19:22 Gram Stain - Final Synovial Fluid Body Fluid Culture - Preliminary Cardiac Studies: Echocardiogram 11/22/20
--- NOTE | 2020-11-25 07:39 | PM.OP ---
Operative Report Date of procedure: November 25, 2020 Pre-op Diagnosis: Left knee swelling Procedure Done: Left knee Irrigation and debridement Anesthesia: General Estimated blood loss (mL): 5 Condition: stable Disposition: PACU Procedure: Patient was brought to the operative suite placed in the supine position. All areas impingement well-padded patient was prepped and draped normal sterile fashion. Skin is made over the left knee midline. Then the medial aspect of retinaculum was opened with a sharp dissection along the edge of the patella leaving a cuff of tissue. The knee joint was then irrigated out with a liter of saline cultures were taken prior to this and deep drain was placed wound was closed with PDS suture Vicryl and fareed. Sterile dressings were applied patient was transferred to the PACU in stable condition.
[2020-11-25] MEDS: ondansetron 2 mg/ML SDV 2 mL 4 MG IVP ×2 (08:01→09:00)
[2020-11-25] MEDS: metoclopramide 5 mg/mL SDV 2 mL 10 MG IVP (08:06)
[2020-11-25] MEDS: docusate sodium 100 mg Capsule PO ×2 (08:59→17:31)
[2020-11-25] MEDS: allopurinol 300 mg Tablet PO (08:59)
[2020-11-25] MEDS: vancomycin 1,500 MG/300 ML PIGGYBACK 150 MG IV (08:59)
[2020-11-25] MEDS: sodium chlor 0.45% +KCl 20 mEq 20 MEQ/1,000 ML BAG 75 MEQ IV ×2 (08:59→22:27)
[2020-11-25] MEDS: morphine ER (12 HR) 15 mg Tablet PO ×2 (09:14→22:27)
--- NOTE | 2020-11-25 10:48 | PM.PN ---
Subjective Subjective: Interval history: Patient was seen and examined today, s/p I&D of lt knee. Still complaining of lt knee pain. Medications: Reviewed: Yes Vitals/I&O/Wt Last Vital Signs Temp 97.9 F 11/25/20 10:24 Pulse 53 L 11/25/20 10:24 Resp 16 11/25/20 10:24 BP 131/78 11/25/20 10:24 Pulse Ox 94 11/25/20 10:24 11/24/20 11/25/20 11/25/20 22:59 06:59 14:59 Intake Total 1590 / 1640 410 / 2050 942.5 / 942.5 Output Total 1150 / 1550 1225 / 2775 Balance 440 / 90 -815 / -725 932.5 / 932.5 Physical Exam Const: COMMON NORMALS: patient oriented x3 HENMT: COMMON NORMALS: normocephalic and atraumatic HEAD & SCALP: normocephalic and atraumatic Resp: COMMON NORMALS: clear to auscultation bilaterally AUSCULTATION: clear to auscultation bilaterally Cardio: COMMON NORMALS: regular rate, regular rhythm, S1 normal heart sound present, S2 normal heart sound present, No gallops present (Cardio), No murmurs present (Cardio), No rub (Cardio) and Peripheral pulses 2+ throughout RATE: regular rate RHYTHM: regular rhythm HEART SOUNDS: S1 normal heart sound present and S2 normal heart sound present PERIPHERAL PULSES: Peripheral pulses 2+ throughout GI: COMMON NORMALS: Normal to inspection, nondistended, normoactive bowel sounds present, Soft to palpation, non-tender, No hepatosplenomegaly present and no masses AUSCULTATION: Yes normoactive bowel sounds PALPATION: Yes Soft to palpation and Yes No hepatosplenomegaly present RECTAL EXAM: Yes deferred Extremity: OTHER: Left knee erythema swelling, increased warmth and tenderness present. Right knee Normal Neuro: COMMON NORMALS: patient oriented x3 Data : 11/25/20 02:37 11/25/20 02:37 Micro: Microbiology 11/21/20 19:22 Gram Stain - Final Synovial Fluid Body Fluid Culture - Final A&P Assessment and plan (1) Left knee pain: Current diagnosis is septic arthritis as that would be the most important to address emergently. He had left olecranon septic bursitis in September and reports being hospitalized at [facility] for several days for an infection somewhere else recently though not able to provide details. From what I can tell no organisms were identified from left olecranon bursa last month. Fluid this evening from the left knee with approximately 40,000 white blood cells and predominance of PMNs. He has, however, been on recent antibiotics by his report. Review of external records shows Levaquin and cefdinir were prescribed mid October and doxycycline and Bactrim were prescribed in September. Records indicate a history of gout and he is on allopurinol chronically. Uric acid level in September was 4.2. He has a history of bilateral hip replacement. Findings could be consistent with a partially treated bacterial infection, inflammatory process with partially treated infection, or inflammatory process without infection. He does have elevated CRP greater than 100 on 2 occasions now more than a month apart. Sed rate only mildly elevated around 30 both times. I do not see any history of inflammatory/immunology studies here. He has a history of rotator cuff tear in the right shoulder with pain in the right shoulder but denies any other joint pains currently apart from the left knee. Status: Acute Qualifiers: Chronicity: acute Qualified Code(s): M25.562 - Pain in left knee (2) Septic arthritis: Status: Acute Qualifiers: Laterality: left Septic arthritis location: knee Septic arthritis organism: due to unspecified organism Qualified Code(s): M00.9 - Pyogenic arthritis, unspecified (3) Septic olecranon bursitis of left elbow: Last month Status: Resolved (4) Rotator cuff tear arthropathy of right shoulder: Chronic, has not been addressed surgically due to infections Status: Chronic (5) H/O total hip arthroplasty: In the past Status: Chronic Qualifiers: Laterality: bilateral Qualified Code(s): Z96.643 - Presence of artificial hip joint, bilateral (6) Gout: Chronically on allopurinol, recent uric acid levels within normal range Status: Chronic Qualifiers: Gout site: unspecified site Gout etiology: unspecified cause Chronicity: unspecified Qualified Code(s): M10.9 - Gout, unspecified (7) Diabetes: Patient denies diagnosis, A1c on October 10 was 6.3, not on any chronic treatment or dietary modifications Status: Acute Qualifiers: Diabetes mellitus type: type 2 Diabetes mellitus 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 In addition he reports that he had been on some blood pressure medications that were stopped when he was identified as having chronic kidney disease. Presumptively, based on available information stage IIIb by calculations but await labs from this evening. Renal ultrasound done in September demonstrated numerous bilateral cyst and complex cyst and recommendation was for further evaluation. He has been referred to nephrology in [place]. Status: Chronic Qualifiers: Chronic kidney disease stage: unspecified stage Qualified Code(s): N18.9 - Chronic kidney disease, unspecified (9) BPH loc w urin obs/LUTS: Chronically on Flomax and has seen Dr. Manzo Status: Chronic Additional A&P Information Left knee pain and swelling:likely inflammatory arthritis less likely septic arthritis. S/p left knee arthrocentesis : Synovial fluid culture:NTD Crystal analysis : Negative Blood cultures: Negative till date: Rheumatoid factor:12 LEANDRO: Negative Ana Lilia 1 antibody: Negative SSA SSB antibody: Negative Anti-Dill antibody: Negative CLIN NURSE SPEC antibody: Negative Anti-SCL antibody: Negative Antidouble-stranded DNA : Pending Anticentromere antibody: Negative Thyroid peroxidase antibody: Negative Complement C3-C4 CH 50:Normal Monitor sed rate and CRP: Uric acid normal CV venous duplex LE LT:No evidence of deep vein thrombosis. 2 DeCHO : Normal LV size and systolic function: LVEF 69%, no RWMA , no gross valvular abnormality.No valvular vegetation appreciated. MRI of the left knee without contrast:Severe tricompartmental osteoarthritis,Large knee joint effusion with synovitis,anterior cruciate ligament is torn.Tearing of the medial meniscus with medial extrusion of the meniscal body. Degeneration and tearing of the lateral meniscus. white blood cell tagged scan: Focal area of white blood cell uptake involving the medial LEFT tibial plateau with additional soft tissue uptake throughout the knee joint. Findings suspicious for a septic arthritis and a focal area of osteomyelitis at the medial tibial plateau. Continue allopurinol Continue vancomycin and Unasyn. Will discharge patient home on ciprofloxacin as well as Bactrim p.o. for 14 days for empiric coverage. Patient will follow orthopedic as an outpatient. DVT prophylaxis: Currently with SCDs Code Status: Full code Attestations Medical Necessity Statement*: Patient needs to be in hospital for management of left knee pain and swelling. 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
[2020-11-25 12:22] LABS: DNA AB (DS) CRITHIDIA,IFA NEGATIVE (NEGATIVE)
--- NOTE | 2020-11-25 16:03 | ANE.PACU2 ---
Inpatient post-anesthesia follow up: Airway intact: Yes Vital signs: Temperature 97.9 F Pulse Rate [Monito r] 63 Pulse Rate 57 Respiratory Rate 16 Blood Pressure [Le ft Arm] 116/69 Blood Pressure 129/62 Pulse Oximetry 93 Oxygen Delivery Me thod Room Air Oxygen Flow Rate 2 Fraction of Inspir ed Oxygen Hydration adequate: Yes Nausea and vomiting: No Pain level: 2 Mental status: Baseline
[2020-11-25] MEDS: enoxaparin 40 mg/0.4 mL Syringe SUBCUT (21:09)
[2020-11-25] MEDS: sennosides 8.6 mg Tablet 17.2 MG PO (21:09)
[2020-11-25] MEDS: tamsulosin 0.4 mg Capsule 0.8 MG PO (21:10)
[2020-11-26] VITALS: BP 127/67; PULSE 50; RESP 16; TEMP 36.7; O2SAT 90
[2020-11-26] MEDS: ampicillin-sulbactam 3 GM in sodium chloride 0.9% (plus) 50 ML IV ×3 (00:08→12:25)
[2020-11-26] MEDS: vancomycin 1,500 MG/300 ML PIGGYBACK 150 MG IV (02:09)
[2020-11-26 04:40] VITALS: BP 152/69; PULSE 48; RESP 16; TEMP 36.8; O2SAT 94
[2020-11-26 08:06] VITALS: BP 154/72; PULSE 59; RESP 16; TEMP 36.3; O2SAT 95
--- NOTE | 2020-11-26 10:04 | PM.PN ---
Subjective Subjective: Interval history: pain significantly improved Vitals/I&O/Wt Last Vital Signs Temp 97.4 F L 11/26/20 08:06 Pulse 59 L 11/26/20 08:06 Resp 16 11/26/20 08:06 BP 154/72 11/26/20 08:06 Pulse Ox 95 11/26/20 08:06 11/25/20 11/26/20 11/26/20 22:59 06:59 14:59 Intake Total 1410 / 2702.5 800 / 3502.5 Output Total 750 / 760 1800 / 2560 200 / 200 Balance 660 / 1942.5 -1000 / 942.5 -200 / -200 Physical Exam Narrative: EXAM NARRATIVE: dressing dry and intact Data : 11/25/20 02:37 11/25/20 02:37 Micro: Microbiology 11/25/20 07:20 Gram Stain - Final Knee - #1 11/21/20 19:22 Gram Stain - Final Synovial Fluid Body Fluid Culture - Final A&P Assessment and plan (1) Left knee pain: POD#1 Left Knee I+D Status: Acute Qualifiers: Chronicity: acute Qualified Code(s): M25.562 - Pain in left knee Attestations Medical Necessity Statement*: OK to D/C from Ortho stand point Coding Level of Care Code Acute Registered Phlebotomist Part Time for Imtiaz Meyer Diagnoses Left knee pain M25.562 Chronicity: acute
[2020-11-26] MEDS: morphine ER (12 HR) 15 mg Tablet PO (11:14)
[2020-11-26] MEDS: allopurinol 300 mg Tablet PO (11:15)
[2020-11-26] MEDS: docusate sodium 100 mg Capsule PO (11:15)
--- NOTE | 2020-11-26 11:32 | PC.SOCIAL ---
IMM Update Pg. 2 of IMM updated and reviewed with patient who verbalized understanding. Copy provided.
[2020-11-26 11:55] VITALS: BP 144/71; PULSE 52; RESP 16; TEMP 36.7; O2SAT 92
--- NOTE | 2020-11-26 12:08 | P.DS_ITS ---
Discharge Providers Date of Admission: 11/21/20 20:26 Date of Discharge: November 26, 2020 Attending Provider at Admission: Macrina Ignacio MD Attending Provider at Discharge: Connor Lima MD Diagnoses at Discharge Discharge Diagnosis (1) Left knee pain: Status: Acute Qualifiers: Chronicity: acute Qualified Code(s): M25.562 - Pain in left knee Reason for Visit Reason for Visit: Left knee swollen/pain Hospital Course Hospital Course 70-year-old male with past medical history of gout on allopurinol , BPH, osteoarthritis of left knee, presented to the emergency room with chief complaint of pain and swelling in his left knee symptoms began 2 to 3 days prior to admission he started experiencing pain in the left knee followed by swelling, denied any trauma to left knee. Upon arrival in the ER he was worked up for above-mentioned complaint. Left knee arthrocentesis was done: Synovitic fluid analysis showed WBC :49243 with neutrophilic predominance, Crystals were negative,Blood cultures: Negative: Rheumatoid factor:12 LEANDRO: Negative, Ana Lilia 1 antibody: Negative SSA SSB antibody: Negative, Anti-Dill antibody: Negative, COP[employer] PLATE [employer]INTER antibody: Negative, Anti-SCL antibody: Negative, Antidouble-stranded DNA : Negative, Anticentromere antibody: Negative , Thyroid peroxidase antibody: Negative , Complement C3-C4 CH 50:Normal Uric acid normal, CV venous duplex LE LT:No evidence of deep vein thrombosis. 2 DeCHO : Normal LV size and systolic function: LVEF 69%, no RWMA , no gross valvular abnormality.No valvular vegetation appreciated. MRI of the left knee without contrast:Severe tricompartmental osteoar thritis,Large knee joint effusion with synovitis,anterior cruciate ligament is torn.Tearing of the medial meniscus with medial extrusion of the meniscal body. Degeneration and tearing of the lateral meniscus.Advanced osteoarthritis. white blood cell tagged scan: Focal area of white blood cell uptake involving the medial LEFT tibial plateau with additional soft tissue uptake throughout the knee joint. Findings suspicious for a septic arthritis and a focal area of osteomyelitis at the medial tibial plateau. Left knee wound culture: No growth till this date. 2 DeCHO : Normal LV size and systolic function: LVEF 69%, no RWMA , no gross valvular abnormality.No valvular vegetation appreciated. During the hospital stay the patient was kept on broad-spectrum antibiotic initially given the high suspicion for septic arthritis the fact that synovitis fluid WBC was high and was predominantly neutrophilic. 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 Patient has been empirically discharged on ciprofloxacin as well as Bactrim for another 7 days. Patient will see orthopedic service and 2 weeks. Physical Exam Const: COMMON NORMALS: patient oriented x3 HENMT: COMMON NORMALS: normocephalic and atraumatic HEAD & SCALP: normocephalic and atraumatic Resp: COMMON NORMALS: clear to auscultation bilaterally AUSCULTATION: clear to auscultation bilaterally Cardio: COMMON NORMALS: regular rate, regular rhythm, S1 normal heart sound present, S2 normal heart sound present, No gallops present (Cardio), No murmurs present (Cardio), No rub (Cardio) and Peripheral pulses 2+ throughout RATE: regular rate RHYTHM: regular rhythm HEART SOUNDS: S1 normal heart sound present and S2 normal heart sound present PERIPHERAL PULSES: Peripheral pulses 2+ throughout GI: COMMON NORMALS: Normal to inspection, nondistended, normoactive bowel sounds present, Soft to palpation, non-tender, No hepatosplenomegaly present and no masses AUSCULTATION: Yes normoactive bowel sounds PALPATION: Yes Soft to palpation and Yes No hepatosplenomegaly present RECTAL EXAM: Yes deferred Extremity: OTHER: Left knee dressing dry and intact Neuro: COMMON NORMALS: patient oriented x3 Discharge Data Data Completed and Pending: Completed Studies During Hospitalization Category Date Time Status XR knee LT 1-2V 7 3560 Urgent Exams 11/21/20 15:57 Completed MR knee LT wo con * [id number] Routine MRI 11/24/20 12:50 Completed NM CERETEC WBC sc an* [id number] Routine Nuc Med 11/23/20 22:29 [place] [address] Urgent Ultrasound 11/21/20 18:53 Completed CV. echo complete * [id number] Routine Ultrasound 11/22/20 22:29 Completed Pending at discharge Category Date Time Status Anaerobic Culture Routine Lab 11/25/20 07:20 Results Blood Culture Sta t Lab 11/21/20 23:50 Results Blood Culture Sta t Lab 11/22/20 21:30 Results Vancomycin Trough Timed Lab 11/26/20 18:30 Ordered Wound Culture and Gram Stain Routin e Lab 11/25/20 07:20 Results Labs from last 24 hours 11/21/20 23:46 Anti-ds DNA IgG (C rith) Negative Vitals: Last Vital Signs Temp 98.1 F 11/26/20 11:55 Pulse 52 L 11/26/20 11:55 Resp 16 11/26/20 11:55 BP 144/71 11/26/20 11:55 Pulse Ox 92 11/26/20 11:55 Discharge Plan Discharge Patient Disposition: Home Condition: Stable Prescriptions: New ciprofloxacin HCl 500 mg tablet 500 mg PO BID Qty: 14 RF: 0 Bactrim 400-80 mg tablet 1 tab PO BID Qty: 14 RF: 0 hydrocodone-acetaminophen 5-325 mg Tablet 28 tab PO Q4H PRN (Reason: Moderate To Severe Pain) 7 Days RF: 0 morphine 15 mg Tablet Extended Release 15 mg PO BID@2200,1000 14 Days RF: 0 Continued allopurinol 300 mg tablet 300 mg PO DAILY RF: 0 tramadol 50 mg tablet 50 mg PO DAILY RF: 0 tamsulosin 0.4 mg capsule 0.8 mg PO BEDTIME RF: 0 Discharge Orders: Discharge Order (Routine); Ordered 11/26/20 Ordered By: Connor Lima Referrals: Alexandre Juarez DO [Physician] - 2 weeks Discharge Diet: Regular Discharge Activity: Increase activity as tolerated Patient Instructions: Septic Arthritis - Bacterial, Ciprofloxacin (By mouth), Sulfamethoxazole/Trimethoprim (By mouth), Hydrocodone/Acetaminophen (By mouth), Morphine, Slow Release (By mouth), Opioid Safety Activity Restrictions/Additional Instructions: f/u ortho clinic 2 weeks WBAT LLE Ice and elevate knee use quentin wrap for compression Change dressing daily Discharge Attestations Time Spent in Discharge Care*: less than 30 min Specific Discharge Activities: educating patient, educating and/or supporting family/caregiver, discussing with pcp/other providers, discussing with field case manager/social workers/dc planners, documenting/other paperwork and evaluating patient/reviewing data Status at Discharge: Cognitive status at discharge: cognitively intact , Behavioral status at discharge: cooperative , Functional status at discharge: other assisted ambulation Overall status at discharge: patient is progressing back to baseline Quality Metrics Clinical Quality Measures During this hospital stay, did patient experience: None Coding Level of Care Code Acute Chg FW DC note Diagnoses Left knee pain M25.562 Chronicity: acute
[2020-11-26 13:19] VITALS: BP 144/71; PULSE 52; RESP 16; TEMP 36.7; O2SAT 92
--- NOTE | 2020-11-26 13:27 | PC.NURSE ---
Discharge Note Patient discharged to home via private vehicle accompanied by . Discharge instructions reviewed with patient and/or assisted sales representative. Mobile pharmacy medications and/or prescriptions provided. Belongings/home medications returned.
[2020-11-27 07:57] LABS: Glucose Point of Care 180 mg/dL (70-110)
[2020-11-27 07:57] LABS: Glucose Point of Care 363 mg/dL (70-110)
[2020-11-27 07:57] LABS: Glucose Point of Care 148 mg/dL (70-110)
[2020-11-27 07:57] LABS: Glucose Point of Care 173 mg/dL (70-110)
[2020-11-27 07:57] LABS: Glucose Point of Care 204 mg/dL (70-110)
--- NOTE | 2020-11-29 13:49 | PC.SOCIAL ---
discharge follow up call made. spoke with . patient continues to have pain, but is improving. patient taking new medications as prescribed. has follow up appointment with Dr. Juarez scheduled.
== END 2020-11-26 13:28 | disposition home or self-care (01) | DRG 502 ==
LOC: ER 17:46 → MEDSURG 21:33
PROVIDERS: Family Medicine; Orthopaedic Surgery; Admitting Provider Hospitalist; Emergency Provider Emergency Medicine; Visit Provider Internal Medicine
DX: M00.9 Pyogenic arthritis, unspecified (principal); M25.562 Pain in left knee; M75.101 Unspecified rotator cuff tear or rupture of right shoulder, not specified as traumatic; M12.811 Other specific arthropathies, not elsewhere classified, right shoulder; M10.9 Gout, unspecified; M00.262 Other streptococcal arthritis, left knee; M65.9 Synovitis and tenosynovitis, unspecified; N40.1 Benign prostatic hyperplasia with lower urinary tract symptoms; M71.122 Other infective bursitis, left elbow; E11.65 Type 2 diabetes mellitus with hyperglycemia; E11.22 Type 2 diabetes mellitus with diabetic chronic kidney disease; N18.9 Chronic kidney disease, unspecified; Z98.52 Vasectomy status; Z96.643 Presence of artificial hip joint, bilateral
CPT/HCPCS: 20610; 36415; 36416; 73560; 73721; 78802; 80048; 80053; 80500; 82962; 83735; 84100; 84550; 85025; 85610; 85651; 86140; 86160; 86162; 86235; 86255; 86376; 86431; 87040; 87070; 87075; 87205; 89050; 93306; 93971; 96365; 96372; 96375; 97110; 97161; 97165; 97530; 99285; A9569; J0295; J1100; J1170; J1650; J1815; J2270; J2405; J2704; J2765; J3010; J3370; J3490; J7050

== ENCOUNTER 2020-12-19 13:19 | Outpatient (CLI) | payer MEDICARE, OTHER, SELFPAY ==
[2020-12-19 13:36] LABS: Hematocrit 37.4 % (42.0-52.0); Mean Corpuscular HGB Conc 32.1 g/dL (30.0-36.0); Mean Corpuscular Volume 87.2 fl (80-94); Mean Platelet Volume 9.8 fL (7.4-10.4); Platelet Count 470 10^3/cmm (130-400); Red Blood Count 4.29 10^6/uL (4.1-5.3); Red Cell Distribution Width 14.1 % (12.1-15.1); White Blood Count 8.2 10^3/uL (4.0-10.0)
[2020-12-19 14:02] LABS: Alanine Aminotransferase 8 U/L (0-41); Albumin Level 3.6 g/dL (3.5-5.2); Alkaline Phosphatase 130 IU/L (40-130); Anion Gap 14.1 (5-19); Aspartate Amino Transferase 14 U/L (0-40); Blood Urea Nitrogen 22 mg/dL (8-23); C Reactive Protein 14.1 mg/L (0.0-4.9); Calcium 9.7 mg/dL (8.5-10.5); Carbon Dioxide 28 mmol/L (22-29); Chloride 99 mmol/L (98-107); Creatine Phosphokinase 69 U/L (39-308); Globulin 3.2 g/dL (1.3-4.6); Glomerular Filtration Rate 83.4 mL/min (90-130); Glucose 87 mg/dL (65-115); Osmolality Calculated 287 mOsm/kg (285-295); Potassium 4.1 mmol/L (3.5-5.1); Sodium 137 mmol/L (136-145); Total Bilirubin 0.4 mg/dL (0.15-1.2); Total Protein 6.8 g/dL (6.6-8.7)
[2020-12-19 14:05] LABS: Absolute Eosinophils 0.4 10^3/cmm (0.0-0.7); Absolute Neutrophil 5.6 10^3/cmm (1.4-6.5); Absolute Segmented Neutrophil 5.5 10/cmm (1.6-7.1); Band Neutrophils Absolute 0.1 10^3/cmm (0.0-1.2); Basophils Absolute 0.1 10^3/cmm (0.0-0.2); Eosinophils 5 %; Lymphocytes 22 %; Lymphocytes Absolute 1.8 10^3/cmm (1.2-3.4); Monocytes Absolute 0.3 10^3/cmm (0.1-0.6); Platelet Estimate Increased (Normal); Segmented Neutrophils 67 %; Total Cells Counted 100 (0-100)
== END 2020-12-19 13:20 | disposition home or self-care (01) ==
LOC: LAB 13:26
PROVIDERS: Visit Provider Internal Medicine Infectious Disease
DX: Z45.2 Encounter for adjustment and management of vascular access device (principal)
CPT/HCPCS: 80053; 82550; 85007; 85027; 86140

== ENCOUNTER 2020-12-26 14:24 | Outpatient (CLI) | payer MEDICARE, OTHER, SELFPAY ==
[2020-12-26 14:44] LABS: Hematocrit 37.8 % (42.0-52.0); Hemoglobin 12.1 g/dL (11.7-16.6); Mean Corpuscular Hemoglobin 27.9 pg (28.0-34.0); Mean Corpuscular Volume 87.1 fl (80-94); Mean Platelet Volume 10.1 fL (7.4-10.4); Platelet Count 436 10^3/cmm (130-400); Red Blood Count 4.34 10^6/uL (4.1-5.3); Red Cell Distribution Width 14.3 % (12.1-15.1); White Blood Count 7.3 10^3/uL (4.0-10.0)
[2020-12-26 15:11] LABS: Alanine Aminotransferase 9 U/L (0-41); Albumin Level 3.6 g/dL (3.5-5.2); Alkaline Phosphatase 123 IU/L (40-130); Aspartate Amino Transferase 16 U/L (0-40); Blood Urea Nitrogen 14 mg/dL (8-23); C Reactive Protein 25.4 mg/L (0.0-4.9); Carbon Dioxide 28 mmol/L (22-29); Chloride 100 mmol/L (98-107); Creatine Phosphokinase 87 U/L (39-308); Globulin 3.1 g/dL (1.3-4.6); Glomerular Filtration Rate 83.4 mL/min (90-130); Glucose 145 mg/dL (65-115); Osmolality Calculated 291 mOsm/kg (285-295); Sodium 139 mmol/L (136-145); Total Bilirubin 0.3 mg/dL (0.15-1.2); Total Protein 6.7 g/dL (6.6-8.7)
[2020-12-26 21:49] LABS: Absolute Eosinophils 0.5 10^3/cmm (0.0-0.7); Absolute Segmented Neutrophil 4.2 10/cmm (1.6-7.1); Band Neutrophils Absolute 0.2 10^3/cmm (0.0-1.2); Eosinophils 8 %; Lymphocytes 28 %; Monocytes Absolute 0.2 10^3/cmm (0.1-0.6); Segmented Neutrophils 58 %; Total Cells Counted 100 (0-100)
[2020-12-26 21:50] LABS: Absolute Neutrophil 4.5 10^3/cmm (1.4-6.5); Platelet Estimate Increased (Normal)
== END 2020-12-26 14:25 | disposition home or self-care (01) ==
PROVIDERS: Visit Provider Internal Medicine Infectious Disease
DX: Z45.2 Encounter for adjustment and management of vascular access device (principal)
CPT/HCPCS: 80053; 82550; 85007; 85027; 86140

== ENCOUNTER 2021-01-02 13:36 | Outpatient (CLI) | payer MEDICARE, OTHER, SELFPAY ==
[2021-01-02 13:59] LABS: Basophils # 0.1 10^3/uL (0.0-0.1); Basophils % 0.8 %; Eosinophils # 0.2 10^3/uL (0.0-0.8); Eosinophils % 2.1 %; Hemoglobin 12.2 g/dL (11.7-16.6); Lymphocytes # 1.4 10^3/uL (0.8-4.8); Lymphocytes % 14.4 %; Mean Corpuscular HGB Conc 32.1 g/dL (30.0-36.0); Mean Corpuscular Hemoglobin 27.5 pg (28.0-34.0); Mean Corpuscular Volume 85.6 fl (80-94); Mean Platelet Volume 9.8 fL (7.4-10.4); Monocytes # 1.1 10^3/uL (0.2-0.9); Monocytes % 11.5 %; Neutrophils # 6.94 10^3/uL (1.8-7.7); Neutrophils % 70.7 %; Nucleated Red Blood Cells % 0 %; Platelet Count 436 10^3/cmm (130-400); Red Blood Count 4.44 10^6/uL (4.1-5.3); Red Cell Distribution Width 14.7 % (12.1-15.1); White Blood Count 9.8 10^3/uL (4.0-10.0)
[2021-01-02 14:21] LABS: C Reactive Protein 83.1 mg/L (0.0-4.9); Creatine Phosphokinase 105 U/L (39-308)
[2021-01-03 10:30] LABS: Alanine Aminotransferase 8 U/L (0-41); Albumin Level 3.8 g/dL (3.5-5.2); Alkaline Phosphatase 129 IU/L (40-130); Anion Gap 13.2 (5-19); Aspartate Amino Transferase 16 U/L (0-40); Blood Urea Nitrogen 17 mg/dL (8-23); Calcium 9.9 mg/dL (8.5-10.5); Carbon Dioxide 28 mmol/L (22-29); Chloride 99 mmol/L (98-107); Globulin 2.9 g/dL (1.3-4.6); Glomerular Filtration Rate 66.2 mL/min (90-130); Glucose 95 mg/dL (65-115); Osmolality Calculated 283 mOsm/kg (285-295); Potassium 4.2 mmol/L (3.5-5.1); Sodium 136 mmol/L (136-145); Total Bilirubin 0.6 mg/dL (0.15-1.2); Total Protein 6.7 g/dL (6.6-8.7)
== END 2021-01-02 13:37 | disposition home or self-care (01) ==
LOC: LAB 13:39
PROVIDERS: Visit Provider Internal Medicine Infectious Disease
DX: M00.9 Pyogenic arthritis, unspecified (principal)
CPT/HCPCS: 80053; 82550; 85025; 86140

== ENCOUNTER → 2021-01-26 08:42 | Outpatient (BNVA) | payer MEDICARE, OTHER, SELFPAY | PROVIDERS: PCP Family Medicine; Visit Provider Urology | DX: N28.9 Disorder of kidney and ureter, unspecified (principal) | CPT/HCPCS: 81003 ==

== ENCOUNTER → 2021-04-24 08:42 | Outpatient (BNVA) | payer MEDICARE, OTHER, SELFPAY | PROVIDERS: PCP Family Medicine; Visit Provider Internal Medicine Rheumatology | DX: M13.162 Monoarthritis, not elsewhere classified, left knee (principal); M75.01 Adhesive capsulitis of right shoulder; Z11.59 Encounter for screening for other viral diseases; Z11.1 Encounter for screening for respiratory tuberculosis; Z79.899 Other long term (current) drug therapy; Z79.52 Long term (current) use of systemic steroids; Z82.61 Family history of arthritis; Z71.85 Encounter for immunization safety counseling | CPT/HCPCS: 36415; 80076; 82306; 82565; 84550; 85025; 85651; 86140; 86200; 86480; 86704; 86803; 87340; 99205; 99215 ==

== ENCOUNTER 2021-04-24 11:02 | Outpatient (CLI) | payer MEDICARE, OTHER, SELFPAY ==
[2021-04-24 11:44] LABS: Basophils # 0.1 10^3/uL (0.0-0.1); Basophils % 1.3 %; Eosinophils # 0.1 10^3/uL (0.0-0.8); Eosinophils % 1.3 %; Hemoglobin 15.7 g/dL (11.7-16.6); Lymphocytes # 0.9 10^3/uL (0.8-4.8); Lymphocytes % 11.3 %; Mean Corpuscular Hemoglobin 27.6 pg (28.0-34.0); Mean Corpuscular Volume 86.1 fl (80-94); Mean Platelet Volume 9.8 fL (7.4-10.4); Monocytes # 0.4 10^3/uL (0.2-0.9); Monocytes % 4.5 %; Neutrophils # 6.32 10^3/uL (1.8-7.7); Neutrophils % 80.7 %; Nucleated Red Blood Cells % 0 %; Platelet Count 362 10^3/cmm (130-400); Red Blood Count 5.69 10^6/uL (4.1-5.3); Red Cell Distribution Width 17.2 % (12.1-15.1); White Blood Count 7.8 10^3/uL (4.0-10.0)
[2021-04-24 11:51] LABS: Erythrocyte Sedimentation Rate 2 mm/hr (0-10)
[2021-04-24 12:13] LABS: Alanine Aminotransferase 13 U/L (0-41); Albumin Level 4.2 g/dL (3.5-5.2); Alkaline Phosphatase 117 IU/L (40-130); Aspartate Amino Transferase 16 U/L (0-40); C Reactive Protein 5.2 mg/L (0.0-4.9); Globulin 2.7 g/dL (1.3-4.6); Glomerular Filtration Rate 73.9 mL/min (90-130); Total Bilirubin 0.4 mg/dL (0.15-1.2); Total Protein 6.9 g/dL (6.6-8.7); Uric Acid 3.7 mg/dL (3.4-7.0)
[2021-04-24 12:31] LABS: Hepatitis B Core AB, Total Non-Reactive (Nonreactive); Hepatitis B Surface Antigen Non-Reactive (Nonreactive); Hepatitis C Virus Antibody Non-Reactive (Nonreactive)
[2021-04-24 13:33] LABS: 25 Hydroxy Vitamin D > 100 ng/mL (30-100)
[2021-04-26 12:52] LABS: Quantiferon Mitogen >10.00 IU/mL; Quantiferon Nil 0.01 IU/mL; Quantiferon TB Gold NEGATIVE (NEGATIVE)
[2021-05-01 14:43] LABS: Cyclic Citrullinated Peptide <16 UNITS
== END 2021-04-24 11:03 | disposition home or self-care (01) ==
LOC: LAB 11:07
PROVIDERS: PCP Family Medicine; Visit Provider Internal Medicine Rheumatology
DX: M19.90 Unspecified osteoarthritis, unspecified site (principal); Z79.899 Other long term (current) drug therapy; Z11.59 Encounter for screening for other viral diseases; Z11.1 Encounter for screening for respiratory tuberculosis
CPT/HCPCS: 36415; 80076; 82306; 82565; 84550; 85025; 85651; 86140; 86200; 86480; 86704; 86803; 87340

== ENCOUNTER 2021-05-05 10:19 | Outpatient (RCR) | payer MEDICARE, OTHER, SELFPAY | END 2021-05-22 23:59 | disposition home or self-care (01) | LOC: SPT 10:19 | PROVIDERS: PCP Family Medicine; Referring Provider Internal Medicine Rheumatology; Visit Provider Internal Medicine Rheumatology | DX: M75.01 Adhesive capsulitis of right shoulder (principal); M25.511 Pain in right shoulder | CPT/HCPCS: 97161 ==

== ENCOUNTER → 2021-06-14 12:54 | Outpatient (BNVA) | payer MEDICARE, OTHER, SELFPAY | PROVIDERS: PCP Family Medicine; Visit Provider Internal Medicine Rheumatology | DX: M13.162 Monoarthritis, not elsewhere classified, left knee (principal); Z79.52 Long term (current) use of systemic steroids; Z79.899 Other long term (current) drug therapy; N39.0 Urinary tract infection, site not specified; Z71.85 Encounter for immunization safety counseling | CPT/HCPCS: 99214 ==

== ENCOUNTER 2021-06-15 08:19 | Outpatient (CLI) | payer MEDICARE, OTHER, SELFPAY ==
[2021-06-15 09:33] LABS: Bilirubin Urine Neg (Negative); Blood Urine Neg (Negative); Glucose Urine UA Norm (Normal); Ketones Urine Negative (Negative); Leukocyte Esterase Urine Negative (Negative); Nitrate Urine Negative (Negative); Protein Urine Neg (Negative); Specific Gravity, Urine 1.015 (1.005-1.030); Urine Appearance Clear (CLEAR); Urine Color Straw (Yellow); Urobilinogen Urine Norm (Negative); pH Urine 5 (5-7)
[2021-06-15 09:47] LABS: Add Urine Culture? No; Bacteria Urine TRACE /hpf; RBC Urine RARE /hpf (0-2); Squamous Epithelial Cell Urine 0-4 /hpf (0-5); WBC Urine RARE /hpf (0-5)
[2021-06-19 15:46] LABS: Anti-Nuclear Antibody Screen NEGATIVE (NEGATIVE)
== END 2021-06-15 08:20 | disposition home or self-care (01) ==
PROVIDERS: PCP Family Medicine; Visit Provider Internal Medicine Rheumatology
DX: M19.90 Unspecified osteoarthritis, unspecified site (principal); Z79.899 Other long term (current) drug therapy; N28.89 Other specified disorders of kidney and ureter; M06.9 Rheumatoid arthritis, unspecified
CPT/HCPCS: 81001; 86038; 87086

== ENCOUNTER 2021-08-29 08:37 | Outpatient (CLI) | payer MEDICARE, OTHER, SELFPAY ==
--- NOTE | 2021-08-29 08:55 | MR_ITS ---
WS: [id number] MRI ABDOMEN with and without CONTRAST. COMPARISON: 12/30/[address] 11/08/2010 Multiplanar, multisequence imaging is performed with and without contrast. Sagittal and axial T1 fat sat sequences post-MultiHance 20 cc IV. Bilateral renal cystic masses are identified. Cysts within the RIGHT kidney range from a few millimet ers to 41 x 58 mm. Again noted is the mildly enhancing mass with solid component and septations in th e central renal pelvis. This mass was described on 12/30/2020 as indeterminate. There has been a sligh t increase in size by 2 mm in transverse and superior inferior diameter. Mass now measures 20 x 21 mm . Again noted are multiple cysts in the LEFT kidney ranging from a few millimeters to the largest in the lower pole measuring 72 x 80 mm. No solid or enhancing mass or septation in the LEFT kidney. No renal obstruction. No adrenal mass. The visualized liver and spleen and pancreas are negative. Gal lbladder is incompletely visualized and may contain stones. The wall does appear slightly thickened w hich may be due to nonfasting state. No ascites or adenopathy. MR/MR abdomen wo/w con* [id number] IMPRESSION: 1. Very slight increase in size of the indeterminate central mass in the RIGHT kidney slightly abutting the pelvis. Mass now measures 20 x 21 mm and has incr eased in size since the prior study. Maximum diameter on the prior study with 1 7 mm. Continued close imaging follow-up recommended. Follow-up MRI abdomen with and without contrast in 6 months to continue to document stability of this adore picious indeterminate lesion in the RIGHT kidney. 2. Additional numerous bilateral renal cysts.
[2021-08-29] MEDS: gadobenate dimeglumine 20 mL vial IV (12:09)
== END 2021-08-29 08:38 | disposition home or self-care (01) ==
PROVIDERS: PCP Family Medicine; Visit Provider Urology
DX: N28.89 Other specified disorders of kidney and ureter (principal)
CPT/HCPCS: 74183

== ENCOUNTER → 2021-08-31 15:05 | Outpatient (BNVA) | payer MEDICARE, OTHER, SELFPAY | PROVIDERS: PCP Family Medicine; Visit Provider Urology | DX: N28.1 Cyst of kidney, acquired (principal); N28.89 Other specified disorders of kidney and ureter | CPT/HCPCS: 81003; 99213 ==

== ENCOUNTER 2021-09-28 07:04 | Outpatient (CLI) | payer MEDICARE, OTHER, SELFPAY ==
--- NOTE | 2021-09-28 | MR_ITS ---
WS: [id number] MRI LEFT KNEE HISTORY: M00.9 - Pyogenic arthritis, unspecified COMPARISON: 11/24/2020 Anterior cruciate ligament: Chronically torn ACL. Posterior cruciate ligament: Mild posterior buckling of the PCL. Medial collateral ligament: MCL is being displaced from the joint line by osteophytes extruded menisc us and synovial thickening. There is slight increased signal in the proximal MCL. Overall the signal has improved since the prior exam. Posterior lateral corner structures: Posterior lateral corner structures are being displaced from the joint line by synovial thickening, large osteophytes and extruded meniscus. Significant bowing from the joint line. Medial menisci: Completely torn abnormal menisci. There is no residual abnormal meniscus within the j oint space. Menisci are extruded. Lateral meniscus: Anterior and posterior horns are torn and partially extruded from the joint line. A bnormal signal throughout the menisci. The advanced degeneration is less as compared to the medial me niscus. Extensor mechanism: Distal quadriceps tendon and patellar tendons are intact. Fluid and soft tissue: Moderate to large joint effusion smaller than it was on the prior study. There is soft tissue thickening and edema. There is mild synovial thickening and hypertrophy. Apple's cyst . Within the expected location of the Apple's cyst is a calcific density measuring 3.0 x 1.8 cm. Ther e are multiple additional loose bodies of various sizes throughout the knee joint. Osseous and articular structures: Patellofemoral compartment: Mild lateral subluxation of the patella. Patellar hypertrophic osteophyte s and joint space narrowing with moderate chondromalacia. Medial compartment: Severe narrowing medial compartment with complete loss of cartilage, subchondral marrow edema greatest involving the tibial plateau. Osteophytes and lateral subluxation of the tibial plateau with respect to the condyles. Lateral compartment: Severe narrowing of the lateral compartment with complete loss of cartilage. Bon e upon bone with large osteophytes. Small amount of marrow edema in the femoral condyle and tibial pl ateau. MR/MR knee LT wo con* [id number] IMPRESSION: 1. Severe changes of osteoarthritis involving the medial and lateral compartme nts. Very similar to the prior study of 11/24/2020. Complete loss of cartilage wi th bone upon bone, extruded menisci and synovial thickening. 2. Numerous loose bodies of various sizes. Largest loose body is in the expect ed location of Apple's cyst measuring 3.0 x 1.8 cm. 3. Moderate joint effusion. 4. Chronic torn ACL. 5. Anterior and posterior menisci are torn in both the medial and lateral comp artment with extrusion from the joint line.
== END 2021-09-28 07:05 | disposition home or self-care (01) ==
PROVIDERS: PCP Family Medicine; Visit Provider Internal Medicine Rheumatology
DX: M00.9 Pyogenic arthritis, unspecified (principal)
CPT/HCPCS: 73721

== ENCOUNTER → 2021-10-25 08:42 | Outpatient (BNVA) | payer MEDICARE, OTHER, SELFPAY | PROVIDERS: PCP Family Medicine; Visit Provider Internal Medicine Rheumatology | DX: M13.162 Monoarthritis, not elsewhere classified, left knee (principal); Z79.899 Other long term (current) drug therapy; Z71.85 Encounter for immunization safety counseling | CPT/HCPCS: 99214 ==

== ENCOUNTER 2022-01-17 22:22 | Inpatient (IN) | payer MEDICARE, OTHER, SELFPAY ==
[2022-01-17 22:28] VITALS: BMI 29.6
[2022-01-17 22:34] VITALS: BP 142/85; PULSE 62; RESP 16; O2SAT 94
--- NOTE | 2022-01-17 22:43 | CTR_ITS ---
PROCEDURE INFORMATION: Exam: CT Abdomen And Pelvis With Contrast Exam date and time: 01/17/2022 10:54 PM Age: 71 years old Clinical indication: Other: Gi bleed; Prior surgery; Surgery type: Inguinal hernia repair. Bilat hips; Patient HX: C/O bloody stools TECHNIQUE: Imaging protocol: Computed tomography of the abdomen and pelvis with contrast. Radiation optimization: All CT scans at this facility use at least one of these dose optimization techniques: automated exposure control; mA and/or kV adjustment per patient size (includes targeted exams where dose is matched to clinical indication); or iterative reconstruction. Contrast material: OMNI 350; Contrast volume: 100 ml; Contrast route: INTRAVENOUS (IV); COMPARISON: MR abdomen wo/w con* [id number] 08/29/2021 11:18 AM RADIATION DOSE METRICS: Total DLP (mGy-cm): 876.23 FINDINGS: Liver: There is no focal abnormality within the liver. Gallbladder and bile ducts: Multiple calcified gallstones are present. Pancreas: The pancreas is normal. Spleen: The spleen demonstrates punctate calcifications, consistent with remote granulomatous organism exposure. Adrenal glands: The adrenal glands are normal. Kidneys and ureters: There are multiple simple renal cysts. There is a 23 mm size indeterminate mass in the mid right kidney corresponding with the abnormality imaged on the previous MRI examination. This mass contains thick septation and mild enhancement. Continued follow-up as recommended on the prior MRI report is suggested. There is no evidence of hydronephrosis. There is no evidence of renal or ureteral calcifications. Stomach and bowel: There is no evidence of colitis/diverticulitis. There is some focal hyperdense material in the mid to distal descending colon. The exact significance of this finding is uncertain, however this could potentially represent some extravasated contrast such as from a source of hemorrhage if the patient is having significant rectal bleeding. Without noncontrast and delayed images is part of the study it is not possible to say this with certainty. Appendix: A normal appendix is identified. Intraperitoneal space: Unremarkable. No free air. No significant fluid collection. Vasculature: Unremarkable. No abdominal aortic aneurysm. Lymph nodes: Unremarkable. No enlarged lymph nodes. Urinary bladder: Unremarkable as visualized. Reproductive: The prostate demonstrates moderate nonspecific enlargement. The seminal vesicles are normal. Bones/joints: There are bilateral hip replacements. The metallic prostheses cause some streak artifact that obscures portions of the pelvis. Soft tissues: Postsurgical changes of left inguinal herniorrhaphy are identified. CT/CT abdomen pelvis w con* [id number] IMPRESSION: 1. Question of possible site of active bleeding in the distal descending colon. 2. No change in the indeterminate right renal mass since 08/29/2021. Continued follow-up recommended. COMMENTS: 1. THIS REPORT CONTAINS FINDINGS THAT MAY BE CRITICAL TO PATIENT CARE. The findings were verbally communicated via telephone conference with NISHANT VILA at 11:38 PM CDT on 01/17/2022. The findings were acknowledged and understood. 2. Consistent with the [employer]'s Incidental Findings Committee white paper (J Am Noble Radiol 2018): Any incidental renal lesion less than 1 cm or classified as too small to characterize, or any incidental cystic renal lesion characterized as simple-appearing, is likely benign. No follow-up imaging is recommended for these lesions per consensus recommendations based on imaging criteria.
--- NOTE | 2022-01-17 22:51 | W.ED.GENADLT ---
HPI - General Adult General: Chief complaint: General Medical Stated complaint: Blood in BM Time Seen by Provider: 01/17/22 22:32 Source: patient Mode of arrival: ambulatory Limitations: no limitations History of Present Illness: 71-year-old male states that he had went to the bathroom roughly an hour ago states he had a bowel movement had bright red blood in it. States he had no history of this he denies having any abdominal pain he states he has had some slight diarrhea. He denies any vomiting he denies any weakness he states he feels completely normal he is just had the 1 bowel movement. Denies any worsening proving factors he is not on any blood thinners. Associated symptoms: Deny chest pain, dyspnea, headache(s) or rash Review of Systems Const: Denies: fever(s), chills, body aches or change in appetite Eyes: Denies: blurry vision or eye discomfort ENMT: Denies: throat pain or dental pain Card: Denies: chest pain Resp: Denies: dyspnea GI: Reports: hematochezia : Denies: dysuria Musc: Denies: neck pain or back pain Skin/Breast: Denies: rash Neuro: Denies: headache(s) Psych: Denies: depression Travis/Lymph: Denies: easy bruising All/Imm: Denies: urticaria PFSH ED PFSH: Medical History BPH loc w urin obs/LUTS Chronic kidney disease Identified September 2020 although had been on Bactrim prior to this, I do not have baseline laboratory studies otherwise. Renal ultrasound at the time demonstrated numerous bilateral cysts and complex cysts. Chronic steroid use Diabetes A1c 09/2020 6.3 DJD (degenerative joint disease) Elevated PSA Gout High risk medication use Immunization counseling Inflammatory arthritis Kidney lesion Left inguinal hernia Left knee pain Renal cyst Right renal mass Rotator cuff tear arthropathy of right shoulder Septic arthritis Septic olecranon bursitis of left elbow (~09/2020) Seronegative rheumatoid arthritis affecting lower leg Surgical History H/O eye surgery H/O total hip arthroplasty Bilateral H/O vasectomy History of elbow surgery History of knee surgery Family History Family/Other CAD (coronary artery disease) Cancer Lung Stroke Mother , AT AGE 77 Parkinson disease Father , IN HIS 80'S Hepatitis C Other Hypertension Denies family history of Rheumatoid arthritis Diabetes Lupus Hyperlipidemia Chronic kidney disease (CKD) Family history of premature coronary artery disease Social History Smoking and tobacco status: never smoked Alcohol intake: never Marital status: Current occupational status: retired History of recent travel: No Physical Exam Const: COMMON NORMALS: no acute distress, patient oriented x3 and healthy appearing HENMT: COMMON NORMALS: normocephalic and atraumatic HEAD & SCALP: normocephalic and atraumatic Eye: COMMON NORMALS: Equal, round and reactive pupils present and EOMs intact bilaterally PUPIL: Yes Equal, round and reactive pupils present Neck/C-Spine: COMMON NORMALS: full ROM and supple Chest: COMMONS NORMALS: normal inspection of the chest and normal palpation of entire chest wall Resp: COMMON NORMALS: normal respiratory effort, No retractions, No use of accessory muscles and clear to auscultation bilaterally AUSCULTATION: clear to auscultation bilaterally Cardio: COMMON NORMALS: regular rate, regular rhythm and No murmurs present (Cardio) RATE: regular rate RHYTHM: regular rhythm GI: COMMON NORMALS: Normal to inspection, nondistended, normoactive bowel sounds present, Soft to palpation, non-tender and no masses PALPATION: Yes Soft to palpation OTHER: Slight amount of bright red blood on rectal exam Extremity: COMMON NORMALS: normal to inspection and full ROM Neuro: COMMON NORMALS: patient oriented x3, moves all extremities and no focal motor deficits Psych: COMMON NORMALS: mental status grossly normal, Normal thought process present and cooperative THOUGHT PROCESS: Normal thought process present Skin: COMMON NORMALS: no rashes or lesions noted and no wounds GENERAL SKIN EXAM: no rashes or lesions noted Course Vital Signs: Vital signs: Vital Signs Pulse Rate 62 01/17/22 22:34 Respiratory Rate 16 01/17/22 22:34 Blood Pressure 142/85 01/17/22 22:34 Pulse Oximetry 94 01/17/22 22:34 Oxygen Delivery Me thod 01/17/22 22:[address] [facility] - General Adult Medical Decision Making Patient presents with a lower GI bleed. He is at 2 bloody bowel movements over the last 3 to 4 hours it was a mild to moderate amount his CT did show possible active bleeding here he has been very stable and well-appearing his vitals have been normal his initial hemoglobin was 17-second recheck after roughly an hour and a half of 16.4 he has no signs of any large volume loss here. I did speak to surgeon Dr. Escobedo and hospitalist will admit here at this time. Lab Data : 01/18/22 00:07 01/17/22 22:53 Radiology Impressions Abdomen/Pelvis CT 01/17/22 22:43 IMPRESSION: 1. Question of possible site of active bleeding in the distal descending colon. 2. No change in the indeterminate right renal mass since 08/29/2021. Continued follow-up recommended. COMMENTS: 1. THIS REPORT CONTAINS FINDINGS THAT MAY BE CRITICAL TO PATIENT CARE. The findings were verbally communicated via telephone conference with NISHANT VILA at 11:38 PM CDT on 01/17/2022. The findings were acknowledged and understood. 2. Consistent with the [employer]'s Incidental Findings Committee white paper (J Am Noble [employer]iol 2018): Any incidental renal lesion less than 1 cm or classified as too small to characterize, or any incidental cystic renal lesion characterized as simple-appearing, is likely benign. No follow-up imaging is recommended for these lesions per consensus recommendations based on imaging criteria. Laboratory Results WBC 10.3 10^3/uL (4.0-10.0) H 01/17/22 22:53 RBC 5.79 10^6/uL (4.1-5.3) H 01/17/22 22:53 Hgb 16.4 g/dL (11.7-16.6) 01/18/22 00:07 Hct 48.8 % (42.0-52.0) 01/18/22 00:07 MCV 89.1 fl (80-94) 01/17/22 22:53 MCH 29.4 pg (28.0-34.0) 01/17/22 22:53 MCHC 32.9 g/dL (30.0-36.0) 01/17/22 22:53 RDW 13.7 % (12.1-15.1) 01/17/22 22:53 Plt Count 324 10^3/cmm (130-400) 01/17/22 22:53 MPV 10.0 fL (7.4-10.4) 01/17/22 22:53 Neut % (Auto) 61.6 % 01/17/22 22:53 Lymph % (Auto) 20.3 % 01/17/22 22:53 Sargent % (Auto) 11.1 % 01/17/22 22:53 Eos % (Auto) 3.8 % 01/17/22 22:53 Baso % (Auto) 1.4 % 01/17/22 22:53 Neut # (Auto) 6.34 10^3/uL (1.8-7.7) 01/17/22 22:53 Lymph # (Auto) 2.1 10^3/uL (0.8-4.8) 01/17/22 22:53 Sargent # (Auto) 1.1 10^3/uL (0.2-0.9) H 01/17/22 22:53 Eos # (Auto) 0.4 10^3/uL (0.0-0.8) 01/17/22 22:53 Baso # (Auto) 0.1 10^3/uL (0.0-0.1) 01/17/22 22:53 Nucleated RBC % (auto) 0 % 01/17/22 22:53 Nucleated RBCs # 0.0 /100WBC 01/17/22 22:53 Sodium 140 mmol/L (136-145) 01/17/22 22:53 Potassium 4.0 mmol/L (3.5-5.1) 01/17/22 22:53 Chloride 106 mmol/L (98-107) 01/17/22 22:53 Carbon Dioxide 23 mmol/L (22-29) 01/17/22 22:53 Anion Gap 15.0 (5-19) 01/17/22 22:53 BUN 23 mg/dL (8-23) 01/17/22 22:53 Creatinine 1.2 mg/dL (0.7-1.2) 01/17/22 22:53 GFR Calculation Not Reportable 01/17/22 22:53 Glucose 144 mg/dL (65-115) H 01/17/22 22:53 Calculated Osmolality 296 mOsm/kg (285-295) H 01/17/22 22:53 Calcium 8.9 mg/dL (8.5-10.5) 01/17/22 22:53 Total Bilirubin 0.4 mg/dL (0.15-1.2) 01/17/22 22:53 AST 20 U/L (0-40) 01/17/22 22:53 ALT 20 U/L (0-41) 01/17/22 22:53 Alkaline Phosphatase 103 U/L (40-130) 01/17/22 22:53 Total Protein 5.9 g/dL (6.6-8.7) L 01/17/22 22:53 Albumin 3.6 g/dL (3.5-5.2) 01/17/22 22:53 Globulin 2.3 g/dL (1.3-4.6) 01/17/22 22:53 Lipase 93 U/L (13-60) H 01/17/22 22:53 Discharge Plan Discharge Patient Disposition: Admitted As Inpatient Clinical Impression: Acute lower GI hemorrhage Condition: Stable Prescriptions: No Action allopurinol 300 mg tablet 300 mg PO DAILY esomeprazole magnesium [Nexium] 20 mg capsule,delayed release(DR/EC) 20 mg PO DAILY docusate sodium [Stool Softener] 100 mg capsule 100 mg PO DAILY hydroxychloroquine 200 mg tablet 200 mg PO BID Qty: 60 3RF prednisone 2.5 mg tablet See Rx Instructions PO .COMPLEX Qty: 120 1RF Rx Instructions: alternate take 2.5mg today then 1mg tomorrow x7days then take 1mg daily x7days then take 1mg everyother day x7days then stop orally; prednisone 1 mg tablet See Rx Instructions PO DAILY Qty: 30 0RF Rx Instructions: alternate take 2.5mg today orally then 1mg tomorrow x7days then take 1mg daily x7days then take 1mg everyother day x7days then stop leflunomide 20 mg tablet 20 mg PO DAILY Qty: 30 3RF ferrous sulfate [iron] 325 mg (65 mg iron) tablet 325 mg PO DAILY Rx Instructions: MON, WED, DANIAL ONLY tamsulosin 0.4 mg capsule 0.8 mg PO BEDTIME Referrals: Carlos Ansari MD [Primary Care Provider] - Coding Level of Care Code ED Registered Radiographer for Chg Fwd Exam Comprehensive
[2022-01-17] MEDS: iohexol 350 mg/mL 100 mL Btl IV (22:53)
[2022-01-17 22:57] LABS: Basophils # 0.1 10^3/uL (0.0-0.1); Basophils % 1.4 %; Eosinophils # 0.4 10^3/uL (0.0-0.8); Eosinophils % 3.8 %; Hematocrit 51.6 % (42.0-52.0); Lymphocytes # 2.1 10^3/uL (0.8-4.8); Lymphocytes % 20.3 %; Mean Corpuscular HGB Conc 32.9 g/dL (30.0-36.0); Mean Corpuscular Hemoglobin 29.4 pg (28.0-34.0); Mean Corpuscular Volume 89.1 fl (80-94); Monocytes # 1.1 10^3/uL (0.2-0.9); Monocytes % 11.1 %; Neutrophils # 6.34 10^3/uL (1.8-7.7); Neutrophils % 61.6 %; Nucleated Red Blood Cells % 0 %; Platelet Count 324 10^3/cmm (130-400); Red Blood Count 5.79 10^6/uL (4.1-5.3); Red Cell Distribution Width 13.7 % (12.1-15.1); White Blood Count 10.3 10^3/uL (4.0-10.0)
[2022-01-17 23:15] VITALS: BP 139/78; PULSE 56; RESP 19; O2SAT 94
[2022-01-17 23:30] LABS: Alanine Aminotransferase 20 U/L (0-41); Albumin Level 3.6 g/dL (3.5-5.2); Alkaline Phosphatase 103 U/L (40-130); Aspartate Amino Transferase 20 U/L (0-40); Blood Urea Nitrogen 23 mg/dL (8-23); Calcium 8.9 mg/dL (8.5-10.5); Carbon Dioxide 23 mmol/L (22-29); Chloride 106 mmol/L (98-107); Globulin 2.3 g/dL (1.3-4.6); Glucose 144 mg/dL (65-115); Lipase 93 U/L (13-60); Osmolality Calculated 296 mOsm/kg (285-295); Sodium 140 mmol/L (136-145); Total Bilirubin 0.4 mg/dL (0.15-1.2); Total Protein 5.9 g/dL (6.6-8.7)
[2022-01-18] VITALS (8 sets, daily range): BP systolic 105–131; BP diastolic 54–77; PULSE 53–88; RESP 14–19; TEMP 36.4–36.8; O2SAT 92–97
[2022-01-18 00:49] LABS: Hematocrit 48.8 % (42.0-52.0); Hemoglobin 16.4 g/dL (11.7-16.6)
--- NOTE | 2022-01-18 02:22 | P.HP_ITS ---
Providers/Chief Complaint Admitting Physician: Alex Berger Primary Care Provider: Carlos Ansari MD Chief Complaint: Blood in BM History of Present Illness Pleasant 71-year-old gentleman with history of seronegative RA, on leflunomide, hydroxychloroquine, prednisone, unidentified renal mass being followed expectantly, recently also with dental procedure, has just completed a course of antibiotic with Augmentin, presented to the ER after having a bloody bowel movement, additional 2 bloody bowel movements in ER. He reports has not had bloody bowel movements in the past. Has had on and off soft stools ever since on hydroxychloroquine, but denies any diarrhea. Had a colonoscopy but states it was probably more than 10 years ago. He is not on blood thinner, denies taking any aspirin. Denies abdominal pain. Has had no vomiting or other GI symptoms. He is noted without tachycardia. Hemoglobin down to 16.[address] abdomen pelvis was obtained in ER without colitis or diverticulitis, some focal hyperdense material in the mid to distal descending colon, question of possible contrast extravasation, raising possibility of active bleeding. Imaging f indings were discussed by ER physician with radiology, as well as with surgery who is consulted. Type and screen is obtained. Review of Systems Const: Denies: fever(s), chills, body aches or malaise Eyes: Denies: change in vision, eye discomfort or eye redness ENMT: Denies: throat pain, oral sores or ear or mastoid pain Card: Denies: chest pain, edema, pre-syncope or dyspnea on exertion Resp: Denies: dyspnea, productive cough, change in phlegm color or hemoptysis GI: Reports: hematochezia; Denies: abdominal pain, nausea, vomiting, constipation or melena : Denies: flank pain, difficulty urinating, urinary frequency or hematuria Musc: Denies: back pain, joint swelling or joint redness Skin/Breast: Denies: rash or new lesions Neuro: Denies: headache(s), numbness in extremities, weakness in extremities, dizziness, confusion or seizure-like activity Endo: Denies: polyuria or polydipsia Travis/Lymph: Denies: easy bleeding or tender lymph nodes All/Imm: Denies: urticaria or tongue swelling Medications/Allergies Home Medications Medication Instructions Recorded Confirmed Last Taken Type allopurinol 300 mg tablet 300 mg PO DAILY 06/03/19 10/25/21 11/21/20 History tamsulosin 0.4 mg capsule 0.8 mg PO BEDTIME 11/21/20 10/25/21 11/20/20 History docusate sodium 100 mg capsule 100 mg PO DAILY 01/26/21 10/25/21 Unknown History (Stool Softener) esomeprazole magnesium 20 mg 20 mg PO DAILY 01/26/21 10/25/21 Unknown History capsule,delayed release (Nexium) ferrous sulfate 325 mg (65 mg 325 mg PO DAILY 08/31/21 10/25/21 Unknown History iron) tablet (iron) hydroxychloroquine 200 mg tablet 200 mg PO BID #60 tabs 10/25/21 10/25/21 Unknown Rx leflunomide 20 mg tablet 20 mg PO DAILY #30 tabs 10/25/21 10/25/21 Unknown Rx prednisone 1 mg tablet See Rx Instructions PO DAILY #30 10/25/21 10/25/21 Unknown Rx tabs prednisone 2.5 mg tablet See Rx Instructions PO .COMPLEX 10/25/21 10/25/21 Unknown Rx #120 tabs Allergies Allergy/AdvReac Type Severity Reaction Status Date / Time No Known Allergies Allergy Verified 10/25/21 09:06 PFSH Acute PFSH: Medical History BPH loc w urin obs/LUTS Chronic kidney disease Identified September 2020 although had been on Bactrim prior to this, I do not have baseline laboratory studies otherwise. Renal ultrasound at the time demonstrated numerous bilateral cysts and complex cysts. Chronic steroid use Diabetes A1c 09/2020 6.3 DJD (degenerative joint disease) Elevated PSA Gout High risk medication use Immunization counseling Inflammatory arthritis Kidney lesion Left inguinal hernia Left knee pain Renal cyst Right renal mass Rotator cuff tear arthropathy of right shoulder Septic arthritis Septic olecranon bursitis of left elbow (~09/2020) Seronegative rheumatoid arthritis affecting lower leg Surgical History H/O eye surgery H/O total hip arthroplasty Bilateral H/O vasectomy History of elbow surgery History of knee surgery Family History Family/Other CAD (coronary artery disease) Cancer Lung Stroke Mother , AT AGE 77 Parkinson disease Father , IN HIS 80'S Hepatitis C Other Hypertension Denies family history of Rheumatoid arthritis Diabetes Lupus Hyperlipidemia Chronic kidney disease (CKD) Family history of premature coronary artery disease Social History Smoking and tobacco status: never smoked Alcohol intake: never Marital status: Current occupational status: retired History of recent travel: No Vitals/I&O/Wt Last Vital Signs Pulse 62 01/17/22 22:34 Resp 16 01/17/22 22:34 BP 142/85 01/17/22 22:34 Pulse Ox 94 01/17/22 22:34 O2 Del Method 01/17/22 22:34 Weight last 48 hrs Weight 88.451 kg Physical Exam Const: COMMON NORMALS: patient oriented x3 and alert GENERAL APPEARANCE: cooperative ORIENTATION/CONSCIOUSNESS: Yes awake HENMT: COMMON NORMALS: oropharynx normal Neck/C-Spine: COMMON NORMALS: no JVD Resp: COMMON NORMALS: normal respiratory effort and clear to auscultation bilaterally AUSCULTATION: clear to auscultation bilaterally Cardio: COMMON NORMALS: no JVD, regular rhythm, S1 normal heart sound present, S2 normal heart sound present and No murmurs present (Cardio) RHYTHM: regular rhythm HEART SOUNDS: S1 normal heart sound present and S2 normal heart sound present GI: COMMON NORMALS: Normal to inspection, nondistended, normoactive bowel sounds present, Soft to palpation and non-tender PALPATION: Yes Soft to palpation Extremity: COMMON NORMALS: no joint enlargement and no pedal edema Neuro: COMMON NORMALS: patient oriented x3 and moves all extremities SENSORIUM/ORIENTATION: Yes alert Skin: COMMON NORMALS: no rashes or lesions noted GENERAL SKIN EXAM: no rashes or lesions noted Data : 01/18/22 00:07 01/17/22 22:53 A&P Assessment and plan (1) Acute lower GI hemorrhage: NPO. Reassess hemoglobin at intervals. Monitor on telemetry. Surgical consultation. Plan Prior chronic steroid use Seronegative RA Not identified renal mass: Continue follow-up with urology, MRI follow-up BPH Gout Recent dental work: Just recently completed antibiotic course with Augmentin. Requested medications to be confirmed, please review and reconcile once available. Attestations Medical Necessity Statement*: Admission of over 2 midnights anticipated for assessment and management of lower GI bleeding. Coding Level of Care Code Acute Lane Marker Installer for Imtiaz Meyer Diagnoses Acute lower GI hemorrhage K92.2
[2022-01-18] MEDS: lactated ringers 1,000 ML 75 ML IV ×2 (03:21→17:16)
[2022-01-18] MEDS: pantoprazole 40 mg SDV IVP (03:21)
[2022-01-18 04:21] LABS: Basophils # 0.1 10^3/uL (0.0-0.1); Basophils % 0.8 %; Eosinophils # 0.3 10^3/uL (0.0-0.8); Eosinophils % 2.8 %; Hematocrit 46.1 % (42.0-52.0); Hemoglobin 15.7 g/dL (11.7-16.6); Lymphocytes # 1.4 10^3/uL (0.8-4.8); Lymphocytes % 13.9 %; Mean Corpuscular HGB Conc 34.1 g/dL (30.0-36.0); Mean Corpuscular Hemoglobin 30.1 pg (28.0-34.0); Mean Corpuscular Volume 88.3 fl (80-94); Mean Platelet Volume 10.3 fL (7.4-10.4); Monocytes # 0.9 10^3/uL (0.2-0.9); Neutrophils # 7.24 10^3/uL (1.8-7.7); Neutrophils % 72.1 %; Nucleated Red Blood Cells % 0 %; Platelet Count 308 10^3/cmm (130-400); Red Blood Count 5.22 10^6/uL (4.1-5.3); Red Cell Distribution Width 13.8 % (12.1-15.1)
[2022-01-18 04:36] LABS: Anion Gap 12.9 (5-19); Blood Urea Nitrogen 21 mg/dL (8-23); Calcium 8.6 mg/dL (8.5-10.5); Carbon Dioxide 22 mmol/L (22-29); Chloride 105 mmol/L (98-107); Creatinine Clr Calc Pharmacy 66.5784; Glucose 150 mg/dL (65-115); Osmolality Calculated 288 mOsm/kg (285-295); Potassium 3.9 mmol/L (3.5-5.1); Sodium 136 mmol/L (136-145)
--- NOTE | 2022-01-18 06:34 | P.CONIM_ITS ---
Providers/Reason For Consult Consulting Physician/Specialty*: Sukh Escobedo MD Reason for Consult*: Lower GI bleed Requesting Physician: Dr. Hill Attending Physician: Alex Berger Primary Care Provider: Carlos Ansari MD History of Present Illness History of Present Illness Mr. Pedro Gomez is a 71 year old male started to have an acute episode of bleeding per rectum around 10 PM yesterday. Patient denies any history of colon cancer and he reports that he had a colonoscopy many years ago and he may have had a polyp with diverticulosis he does not remember exactly. Otherwise he has been relatively healthy except for the fact that he did have long-term IV antibiotic therapy about a year ago for some sort of infection in his knee. Presented to the emergency department there is no history of abdominal pain and his initial hemoglobin 17.0 and last hemoglobin was 15.7. Otherwise unremarkable blood work Patient undergone a CT of the abdomen pelvis did show 1. Question of possible site of active bleeding in the distal descending colon. 2. No change in the indeterminate right renal mass since 08/29/2021. Continued follow-up recommended. General surgery was consulted for further evaluation. Patient was seen and patient was seen and evaluated in the emergency department room #15 Review of Systems General: Reports: 10 or more systems reviewed and unremarkable except in HPI and below Medications/Allergies Home Medications Medication Instructions Recorded Confirmed Last Taken Type allopurinol 300 mg tablet 300 mg PO QAM 06/03/19 01/18/22 11/21/20 History tamsulosin 0.4 mg capsule 0.8 mg PO BEDTIME 11/21/20 01/18/22 11/20/20 History esomeprazole magnesium 20 mg 20 mg PO QAM 01/26/21 01/18/22 Unknown History capsule,delayed release (Nexium) hydroxychloroquine 200 mg tablet 200 mg PO BID #60 tabs 10/25/21 01/18/22 Unknown Rx amoxicillin 500 mg-potassium 1 tab PO BID 01/18/22 01/18/22 01/17/22 History clavulanate 125 mg tablet finished fexofenadine 180 mg tablet 180 mg PO DAILY PRN Allergy 01/18/22 01/18/22 Unknown History Symptoms leflunomide 20 mg tablet 20 mg PO QAM 01/18/22 01/18/22 Unknown History methylprednisolone 4 mg tablets in See Rx Instructions .Route .COMPLEX 01/18/22 01/18/22 01/16/22 History a dose pack Allergies Allergy/AdvReac Type Severity Reaction Status Date / Time No Known Allergies Allergy Verified 01/18/22 09:37 Current Medications Generic Name Dose Route Start Last Admin Trade Name Quintin PRN Reason Stop Dose Admin Lactated Ringer's 1,000 mls @ 75 mls/hr 01/18/22 02:57 01/18/22 03:21 Lactated Ringers IV 75 mls/hr .[id number] PELON Administration Pantoprazole Sodium 40 mg 01/18/22 02:57 01/18/22 03:21 Pantoprazole 40 Mg Sdv IVP 40 mg Q24H PELON Administration PFSH Acute PFSH: Medical History BPH loc w urin obs/LUTS Chronic kidney disease Identified September 2020 although had been on Bactrim prior to this, I do not have baseline laboratory studies otherwise. Renal ultrasound at the time demonstrated numerous bilateral cysts and complex cysts. Chronic steroid use Diabetes A1c 09/2020 6.3 DJD (degenerative joint disease) Elevated PSA Gout High risk medication use Immunization counseling Inflammatory arthritis Kidney lesion Left inguinal hernia Left knee pain Renal cyst Right renal mass Rotator cuff tear arthropathy of right shoulder Septic arthritis Septic olecranon bursitis of left elbow (~09/2020) Seronegative rheumatoid arthritis affecting lower leg Surgical History H/O eye surgery H/O total hip arthroplasty Bilateral H/O vasectomy History of elbow surgery History of knee surgery Family History Family/Other CAD (coronary artery disease) Cancer Lung Stroke Mother , AT AGE 77 Parkinson disease Father , IN HIS 80'S Hepatitis C Other Hypertension Denies family history of Rheumatoid arthritis Diabetes Lupus Hyperlipidemia Chronic kidney disease (CKD) Family history of premature coronary artery disease Social History Smoking and tobacco status: never smoked Alcohol intake: never Marital status: Current occupational status: retired History of recent travel: No Vitals/I&O/Wt Last Vital Signs Pulse 55 L 01/18/22 05:00 Resp 16 01/18/22 05:00 BP 109/64 01/18/22 05:00 Pulse Ox 95 01/18/22 05:00 O2 Del Method 01/18/22 03:34 Weight last 48 hrs Weight 195 lb Physical Exam Const: COMMON NORMALS: no acute distress and patient oriented x3 GENERAL APPEARANCE: cooperative ORIENTATION/CONSCIOUSNESS: Yes awake, Yes oriented to person, Yes oriented to place and Yes oriented to time HENMT: COMMON NORMALS: normocephalic HEAD & SCALP: normocephalic Eye: COMMON NORMALS: Equal, round and reactive pupils present and no scleral icterus PUPIL: Yes Equal, round and reactive pupils present Lymph: LYMPHATIC: no lymphadenopathy noted Chest: COMMONS NORMALS: normal inspection of the chest Resp: COMMON NORMALS: normal respiratory effort and clear to auscultation bilaterally AUSCULTATION: clear to auscultation bilaterally Cardio: COMMON NORMALS: S1 normal heart sound present and S2 normal heart sound present; negative for No murmurs present (Cardio) HEART SOUNDS: S1 normal heart sound present and S2 normal heart sound present GI: COMMON NORMALS: Soft to palpation; negative for No hepatosplenomegaly present INSPECTION: Yes normal to inspection PALPATION: Yes Soft to palpation, No Firmness to palpation present (GI), No Tenderness to palpation present (GI), No Guarding due to palpation present (GI), No Rigid due to palpation and No No hepatosplenomegaly present Neuro: COMMON NORMALS: patient oriented x3 SENSORIUM/ORIENTATION: Yes oriented to person, Yes oriented to place and Yes oriented to time Psych: COMMON NORMALS: mental status grossly normal Skin: COMMON NORMALS: no rashes or lesions noted GENERAL SKIN EXAM: no rashes or lesions noted Data : 01/19/22 23:45 01/19/22 04:32 A&P Assessment and plan (1) Acute lower GI hemorrhage: Plan of care; After thorough history and physical examination and reviewing the chart, plan to perform diagnostic colonoscopy. I discussed with the patient in details the risks,benefits,alternatives and indications.The risk of aspiration, bleeding, soft tissue injury, perforation of the colon ,missed lesions and other potential concomitant complications were explained to the patient in details,also the potential need for Laproscoy/Laparotomy to repair any related complications including but not limited to colectomy and or Closotomy.The patient understood this well and did agree to proceed. Rationale was carefully and clearly discussed with the patient.Appropriate informed consent have been reviewed and signed All questions have been answered and all concerns have been addressed to patient's satisfaction. Verbal and written Instructions were given to the patient for colonoscopy prep. We will plan to start GoLytely right away and aiming for colonoscopy tomorrow. Consult Attestations Medical Necessity Statement: Per admitting service Coding Level of Care Code Acute Business Services Vice President for g Fwd Exam Comprehensive Diagnoses Acute lower GI hemorrhage K92.2
[2022-01-18 08:24] LABS: Hemoglobin 15.3 g/dL (11.7-16.6)
[2022-01-18] MEDS: peg /e-lyte soln 4,000 mL Btl 4000 ML PO (09:06)
--- NOTE | 2022-01-18 09:33 | PM.MISC ---
Miscellaneous Note Note: Patient is doing fine Hemodynamically stable Start GoLytely Patient is in good spirits S1, S2 Awake and alert Nonfocal neuro exam Abdomen soft Currently on room air Assessment and plan Colonoscopy tomorrow Eunice Full code Clear liquid diet for now
[2022-01-18 13:44] LABS: Hemoglobin 14.9 g/dL (11.7-16.6)
--- NOTE | 2022-01-18 16:36 | PC.NURSE ---
Rounded with the doctor at this time. Colonoscopy scheduled for tomorrow
[2022-01-18] MEDS: peg /e-lyte soln 4,000 mL Btl 1500 ML PO (17:18)
[2022-01-18 18:24] LABS: Hemoglobin 15.3 g/dL (11.7-16.6)
[2022-01-18 21:02] LABS: Hemoglobin 13.8 g/dL (11.7-16.6)
[2022-01-19] VITALS (7 sets, daily range): BP systolic 122–177; BP diastolic 45–94; PULSE 55–76; RESP 16–18; TEMP 36.2–36.8; O2SAT 94–97
[2022-01-19 00:26] LABS: Hemoglobin 13.2 g/dL (11.7-16.6)
[2022-01-19] MEDS: pantoprazole 40 mg SDV IVP (04:28)
[2022-01-19 05:23] LABS: Basophils # 0.1 10^3/uL (0.0-0.1); Basophils % 0.9 %; Eosinophils # 0.3 10^3/uL (0.0-0.8); Eosinophils % 2.9 %; Hematocrit 37.1 % (42.0-52.0); Hemoglobin 12.1 g/dL (11.7-16.6); Lymphocytes # 1.6 10^3/uL (0.8-4.8); Lymphocytes % 17.1 %; Mean Corpuscular HGB Conc 32.6 g/dL (30.0-36.0); Mean Corpuscular Hemoglobin 29.7 pg (28.0-34.0); Mean Corpuscular Volume 90.9 fl (80-94); Mean Platelet Volume 10.6 fL (7.4-10.4); Monocytes % 10.7 %; Neutrophils # 6.28 10^3/uL (1.8-7.7); Nucleated Red Blood Cells % 0 %; Platelet Count 260 10^3/cmm (130-400); Red Blood Count 4.08 10^6/uL (4.1-5.3); Red Cell Distribution Width 13.8 % (12.1-15.1); White Blood Count 9.4 10^3/uL (4.0-10.0)
[2022-01-19 06:01] LABS: Blood Urea Nitrogen 16 mg/dL (8-23); Calcium 8.3 mg/dL (8.5-10.5); Carbon Dioxide 28 mmol/L (22-29); Chloride 105 mmol/L (98-107); Creatinine Clr Calc Pharmacy 66.5784; Glucose 110 mg/dL (65-115); Osmolality Calculated 292 mOsm/kg (285-295); Sodium 140 mmol/L (136-145)
[2022-01-19 06:19] LABS: Anion Gap 10.7 (5-19); Potassium 3.7 mmol/L (3.5-5.1)
[2022-01-19] MEDS: lactated ringers 1,000 ML 75 ML IV (07:50)
--- NOTE | 2022-01-19 08:12 | PC.NURSE ---
Bedside report done during shift change with HARRIET Najera.
--- NOTE | 2022-01-19 09:36 | PM.PN ---
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 Escobedo did colonoscopy Vitals/I&O/Wt Last Vital Signs Temp 98.2 F 01/19/22 07:31 Pulse 60 01/19/22 07:31 Resp 16 01/19/22 07:31 BP 122/45 01/19/22 07:31 Pulse Ox 96 01/19/22 07:31 O2 Del Method 01/19/22 07:31 01/18/22 01/19/22 01/19/22 22:59 06:59 14:59 Intake Total 1900 / 2500 1240 / 3740 Balance 1900 / 2500 1240 / 3740 Weight last 48 hrs Weight 88.451 kg Physical Exam Narrative: Awake and alert Nonfocal neuro exam Abdomen soft Euvolemic Family at the bedside Currently on room air Hemodynamically stable Data : 01/19/22 23:45 01/19/22 04:32 A&P Assessment and plan (1) Right renal mass: (2) Renal cyst: (3) Inflammatory arthritis: (4) Acute lower GI hemorrhage: Plan Colonoscopy today Plan to discharge later if colonoscopy shows nonsignificant bleeding Attestations Medical Necessity Statement*: Discharge later today Coding Level of Care Code 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
--- NOTE | 2022-01-19 09:38 | P.DS_ITS ---
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 Escobedo did colonoscopy Colonoscopy showed diverticulosis without active bleed, patient was counseled regarding dietary modifications and he will follow-up with Dr. Escobedo within 2 weeks. Physical Exam Narrative: Patient is in good spirits S1, S2 Awake and alert Nonfocal neuro exam Abdomen soft Currently on room air Discharge Data Studies Completed and Pending Completed Studies During Hospitalization Category Date Time Status CT abdomen pelvis w con* [id number] Stat Cat Scan 01/17/22 22:43 Completed Pending at discharge Category Date Time Status Basic Metabolic Panel AM LABS Lab 01/20/22 04:00 Ordered Basic Metabolic Panel AM LABS Lab 01/21/22 04:00 Ordered Complete Blood Count w/Auto AM LABS Lab 01/20/22 04:00 Ordered Complete Blood Count w/Auto AM LABS Lab 01/21/22 04:00 Ordered Radiology Impressions Abdomen/Pelvis CT 01/17/22 22:43 IMPRESSION: 1. Question of possible site of active bleeding in the distal descending colon. 2. No change in the indeterminate right renal mass since 08/29/2021. Continued follow-up recommended. COMMENTS: 1. THIS REPORT CONTAINS FINDINGS THAT MAY BE CRITICAL TO PATIENT CARE. The findings were verbally communicated via telephone conference with NISHANT VILA at 11:38 PM CDT on 01/17/2022. The findings were acknowledged and understood. 2. Consistent with the [employer]'s Incidental Findings Committee white paper (J Am Noble Radiol 2018): Any incidental renal lesion less than 1 cm or classified as too small to characterize, or any incidental cystic renal lesion characterized as simple-appearing, is likely benign. No follow-up imaging is recommended for these lesions per consensus recommendations based on imaging criteria. Laboratory Results WBC 9.4 10^3/uL (4.0-10.0) 01/19/22 04:32 RBC 4.08 10^6/uL (4.1-5.3) L 01/19/22 04:32 Hgb 13.2 g/dL (11.7-16.6) 01/19/22 23:45 Hct 37.1 % (42.0-52.0) L 01/19/22 04:32 MCV 90.9 fl (80-94) 01/19/22 04:32 MCH 29.7 pg (28.0-34.0) 01/19/22 04:32 MCHC 32.6 g/dL (30.0-36.0) 01/19/22 04:32 RDW 13.8 % (12.1-15.1) 01/19/22 04:32 Plt Count 260 10^3/cmm (130-400) 01/19/22 04:32 MPV 10.6 fL (7.4-10.4) H 01/19/22 04:32 Neut % (Auto) 67.0 % 01/19/22 04:32 Lymph % (Auto) 17.1 % 01/19/22 04:32 [place] % (Auto) 10.7 % 01/19/22 04:32 Eos % (Auto) 2.9 % 01/19/22 04:32 Baso % (Auto) 0.9 % 01/19/22 04:32 Neut # (Auto) 6.28 10^3/uL (1.8-7.7) 01/19/22 04:32 Lymph # (Auto) 1.6 10^3/uL (0.8-4.8) 01/19/22 04:32 [place] # (Auto) 1.0 10^3/uL (0.2-0.9) H 01/19/22 04:32 Eos # (Auto) 0.3 10^3/uL (0.0-0.8) 01/19/22 04:32 Baso # (Auto) 0.1 10^3/uL (0.0-0.1) 01/19/22 04:32 Nucleated RBC % (auto) 0 % 01/19/22 04:32 Nucleated RBCs # 0.0 /100WBC 01/19/22 04:32 Sodium 140 mmol/L (136-145) 01/19/22 04:32 Potassium 3.7 mmol/L (3.5-5.1) 01/19/22 04:32 Chloride 105 mmol/L (98-107) 01/19/22 04:32 Carbon Dioxide 28 mmol/L (22-29) 01/19/22 04:32 Anion Gap 10.7 (5-19) 01/19/22 04:32 BUN 16 mg/dL (8-23) 01/19/22 04:32 Creatinine 1.1 mg/dL (0.7-1.2) 01/19/22 04:32 GFR Calculation Not Reportable 01/19/22 04:32 Glucose 110 mg/dL (65-115) 01/19/22 04:32 Calculated Osmolality 292 mOsm/kg (285-295) 01/19/22 04:32 Calcium 8.3 mg/dL (8.5-10.5) L 01/19/22 04:32 Total Bilirubin 0.4 mg/dL (0.15-1.2) 01/17/22 22:53 AST 20 U/L (0-40) 01/17/22 22:53 ALT 20 U/L (0-41) 01/17/22 22:53 Alkaline Phosphatase 103 U/L (40-130) 01/17/22 22:53 Total Protein 5.9 g/dL (6.6-8.7) L 01/17/22 22:53 Albumin 3.6 g/dL (3.5-5.2) 01/17/22 22:53 Globulin 2.3 g/dL (1.3-4.6) 01/17/22 22:53 Lipase 93 U/L (13-60) H 01/17/22 22:53 Blood Type AB Positive 01/18/22 03:10 Rho(D) Type Positive 01/18/22 03:10 Antibody Screen Negative 01/18/22 03:10 Vitals Last Vital Signs Temp 98.2 F 01/19/22 07:31 Pulse 60 01/19/22 07:31 Resp 16 01/19/22 07:31 BP 122/45 01/19/22 07:31 Pulse Ox 96 01/19/22 07:31 O2 Del Method 01/19/22 07:31 Discharge Plan Discharge Patient Disposition: Home Condition: Stable Prescriptions: Continued allopurinol 300 mg tablet 300 mg PO QAM hydroxychloroquine 200 mg tablet 200 mg PO BID Qty: 60 3RF tamsulosin 0.4 mg capsule 0.8 mg PO BEDTIME fexofenadine 180 mg Tablet 180 mg PO DAILY PRN (Reason: Allergy Symptoms) methylprednisolone 4 mg tablets,dose pack See Rx Instructions .ROUTE .COMPLEX Rx Instructions: as directed (rx filled 01/10/22 6d/s) amoxicillin-pot clavulanate 500-125 mg tablet 1 tab PO BID Rx Instructions: rx filled 01/10/22 7d/s leflunomide 20 mg tablet 20 mg PO QAM Changed esomeprazole magnesium [Nexium] 20 mg capsule,delayed release(DR/EC) 20 mg PO BID Qty: 60 0RF Discharge Orders: Discharge Order (Routine); Ordered 01/19/22 Ordered By: Greta Metz Referrals: Carlos Ansari MD [Primary Care Provider] - Sukh Escobedo MD [Physician] - 2 weeks Discharge Diet: GI Soft Discharge Activity: Increase activity as tolerated Patient Instructions: GI Discharge Instructions, Opioid Safety Activity Restrictions/Additional Instructions: Colonoscopy has revealed diverticulosis, diverticular bleed is intermittent, he has not dropped her hemoglobin significantly, try to avoid constipation Use high-fiber diet and fluids Further instructions were given to you by the surgeon You can follow-up with general surgeon after 2 weeks No active bleeding was noted during colonoscopy You can resume your home medications Discharge Attestations Time Spent in Discharge Care*: less than 30 min Status at Discharge: Cognitive status at discharge: cognitively intact , Behavioral status at discharge: cooperative , Quality Metrics Clinical Quality Measures [ No reported AMI, CVA or VTE this stay] Coding Level of Care Code Acute Chg FW DC note Diagnoses Right renal mass N28.89 Renal cyst N28.1 Inflammatory arthritis M19.90 Acute lower GI hemorrhage K92.2
[2022-01-19] MEDS: sodium chloride 0.9% 1,000 ML 30 ML IV (11:32)
--- NOTE | 2022-01-19 12:18 | PM.PN ---
Subjective Subjective: Patient overall is doing well. Undergone colon prep. No reported acute episodes of bleeding Medications: Reviewed: Yes Vitals/I&O/Wt Last Vital Signs Temp 97.1 F L 01/19/22 11:08 Pulse 59 L 01/19/22 11:08 Resp 18 01/19/22 11:08 BP 157/94 01/19/22 11:08 Pulse Ox 94 01/19/22 11:08 O2 Del Method 01/19/22 11:08 01/18/22 01/19/22 01/19/22 22:59 06:59 14:59 Intake Total 1900 / 2500 1240 / 3740 Balance 1900 / 2500 1240 / 3740 Weight last 48 hrs Weight 195 lb Physical Exam Narrative: Patient is conscious alert oriented X3 No apparent distress BMI 30 Head and neck examination PERRLA no masses no cervical lymphadenopathy no jaundice Abdomen nontender nondistended soft no organomegaly guarding or rigidity/no signs of peritonitis Data : 01/19/22 23:45 01/19/22 04:32 A&P Assessment and plan (1) Acute lower GI hemorrhage: We will proceed with with colonoscopy today with possible biopsy Attestations Medical Necessity Statement*: Per admitting service Coding Level of Care Code 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
--- NOTE | 2022-01-19 13:07 | ANES.PREANE2 ---
Pre-Anesthetic Assessment Height/Weight: Height 1.73 m Weight 88.451 kg Temp Pulse Resp BP Pulse Ox O2 Del Method 97.1 F L 59 L 18 157/94 94 01/19/22 11:08 01/19/22 11:08 01/19/22 11:08 01/19/22 11:08 01/19/22 11:08 01/19/22 11:08 Operation Date: 01/19/22 11:30 Proposed Procedures p Colonoscopy(Not Applicable) - Sukh Escobedo MD Familial anesthetic complications: None Was Beta Beto taken within 24 hours: N/A Was Clonidine taken within 24 hours: N/A Last intake: Intake Last Liquid Date 01/18/22 Last Liquid Time 22:00 Last Solid Date 01/16/22 Last Solid Time 18:00 Social No alcohol and No tobacco Exam alert, oriented x 3, clear to auscultation bilaterally and regular rate & rhythm Airway Submandibular: within normal limits Cervical ROM: within normal limits Mallampati: Class II Dentition: full History/ROS No significant history except as noted Pulmonary None reported CV/HEM None reported pt states he has a cyst on his kidney Hepatic None reported GI GI bleed started on 01/17/22 Metabolic None reported Musc/skel None reported Neuropsych None reported Anesthetic Plan ASA status: 2 Anesthesia: Anesthesia Evaluation Risk of > 500 ml blood loss (7ml/kg in children): No Medications/Allergies Home Medications Medication Instructions Recorded Confirmed Last Taken Type allopurinol 300 mg tablet 300 mg PO QAM 06/03/19 01/18/22 11/21/20 History tamsulosin 0.4 mg capsule 0.8 mg PO BEDTIME 11/21/20 01/18/22 11/20/20 History hydroxychloroquine 200 mg tablet 200 mg PO BID #60 tabs 10/25/21 01/18/22 Unknown Rx amoxicillin 500 mg-potassium 1 tab PO BID 01/18/22 01/18/22 01/17/22 History clavulanate 125 mg tablet finished fexofenadine 180 mg tablet 180 mg PO DAILY PRN Allergy 01/18/22 01/18/22 Unknown History Symptoms leflunomide 20 mg tablet 20 mg PO QAM 01/18/22 01/18/22 Unknown History methylprednisolone 4 mg tablets in See Rx Instructions .Route .COMPLEX 01/18/22 01/18/22 01/16/22 History a dose pack esomeprazole magnesium 20 mg 20 mg PO BID #60 caps 01/19/22 01/18/22 Unknown Rx capsule,delayed release (Nexium) Allergies Allergy/AdvReac Type Severity Reaction Status Date / Time No Known Allergies Allergy Verified 01/18/22 09:37 Current Medications Generic Name Dose Route Start Last Admin Trade Name Quintin PRN Reason Stop Dose Admin Sodium Chloride 1,000 mls @ 30 mls/hr 01/19/22 11:15 01/19/22 11:32 Sodium Chloride 0.9% IV 01/20/22 11:14 30 mls/hr .Q24H PELON Administration Pantoprazole Sodium 40 mg 01/18/22 02:57 01/19/22 04:28 Pantoprazole 40 Mg Sdv IVP 40 mg Q24H PELON Administration PFSH Anesthesia Medical History BPH loc w urin obs/LUTS Chronic kidney disease Identified September 2020 although had been on Bactrim prior to this, I do not have baseline laboratory studies otherwise. Renal ultrasound at the time demonstrated numerous bilateral cysts and complex cysts. Chronic steroid use Diabetes A1c 09/2020 6.3 DJD (degenerative joint disease) Elevated PSA Gout High risk medication use Immunization counseling Inflammatory arthritis Kidney lesion Left inguinal hernia Left knee pain Renal cyst Right renal mass Rotator cuff tear arthropathy of right shoulder Septic arthritis Septic olecranon bursitis of left elbow (~09/2020) Seronegative rheumatoid arthritis affecting lower leg Surgical History H/O eye surgery H/O total hip arthroplasty Bilateral H/O vasectomy History of elbow surgery History of knee surgery Family History Family/Other CAD (coronary artery disease) Cancer Lung Stroke Mother , AT AGE 77 Parkinson disease Father , IN HIS 80'S Hepatitis C Other Hypertension Denies family history of Rheumatoid arthritis Diabetes Lupus Hyperlipidemia Chronic kidney disease (CKD) Family history of premature coronary artery disease Social History Smoking and tobacco status: never smoked Alcohol intake: never Marital status: Current occupational status: retired History of recent travel: No Data Anesthesia : 01/19/22 23:45 01/19/22 04:32 Short CBC 01/17/22 01/17/22 01/18/22 Range/Units 00:07 22:53 00:07 WBC 10.3 H (4.0-10.0) 10^3/uL Hgb Cancelled 17.0 H 16.4 Hct Cancelled 51.6 48.8 MCV 89.1 (80-94) fl Plt Count 324 (130-400) 10^3/cmm Neut % (Auto) 61.6 % Neut # (Auto) 6.34 (1.8-7.7) 10^3/uL 01/18/22 01/18/22 01/18/22 Range/Units 04:17 08:12 13:25 WBC 10.0 (4.0-10.0) 10^3/uL Hgb 15.7 15.3 14.9 Hct 46.1 MCV 88.3 (80-94) fl Plt Count 308 (130-400) 10^3/cmm Neut % (Auto) 72.1 % Neut # (Auto) 7.24 (1.8-7.7) 10^3/uL 01/18/22 01/18/22 01/19/22 Range/Units 18:10 20:57 04:32 WBC 9.4 (4.0-10.0) 10^3/uL Hgb 15.3 13.8 12.1 Hct 37.1 L MCV 90.9 (80-94) fl Plt Count 260 (130-400) 10^3/cmm Neut % (Auto) 67.0 % Neut # (Auto) 6.28 (1.8-7.7) 10^3/uL 01/19/22 Range/Units 23:45 WBC (4.0-10.0) 10^3/uL Hgb 13.2 Hct MCV (80-94) fl Plt Count (130-400) 10^3/cmm Neut % (Auto) % Neut # (Auto) (1.8-7.7) 10^3/uL BMP 01/17/22 01/18/22 01/19/22 22:53 04:17 04:32 Sodium 140 136 140 Potassium 4.0 3.9 3.7 Chloride 106 105 105 Carbon Dioxide 23 22 28 BUN 23 21 16 Creatinine 1.2 1.1 1.1 Glucose 144 H 150 H 110 Calcium 8.9 8.6 8.3 L Liver Function 01/17/22 Range/Units 22:53 Total Bilirubin 0.4 (0.15-1.2) mg/dL AST 20 (0-40) U/L ALT 20 (0-41) U/L Alkaline Phosphatase 103 (40-130) U/L Albumin 3.6 (3.5-5.2) g/dL Blood Bank 01/18/22 03:10 Blood Type AB Positive Rho(D) Type Positive Antibody Screen Negative Cardiac Studies: Echocardiogram 11/22/20
--- NOTE | 2022-01-19 13:35 | ANE.PACU2 ---
Inpatient post-anesthesia follow up: Airway intact: Yes Vital signs: Temperature 97.1 F Pulse Rate 59 Respiratory Rate 18 Blood Pressure 157/94 Pulse Oximetry 94 Oxygen Delivery Me thod Room Air Oxygen Flow Rate Fraction of Inspir ed Oxygen Hydration adequate: Yes Nausea and vomiting: No Pain level: 1 Mental status: Baseline
--- NOTE | 2022-01-19 13:39 | PC.NURSE ---
patient awake, alert and oriented x3. abd soft, nontender, bowel sounds hypoactive x4. patient denies pain.
--- NOTE | 2022-01-19 13:40 | PC.NURSE ---
patient passing flatus.
--- NOTE | 2022-01-19 13:52 | PC.NURSE ---
iv site clean dry and patent. dressing clean dry and intact. report called to emma flores
== END 2022-01-19 15:09 | disposition home or self-care (01) | DRG 379 ==
LOC: ER 01-18 01:04 → ER IP 01-18 01:25 → MEDSURG 01-18 06:38
PROVIDERS: Surgery; Admitting Provider Internal Medicine; Emergency Provider Emergency Medicine; PCP Family Medicine; Visit Provider Internal Medicine
PROC: 0DJD8ZZ Inspection of Lower Intestinal Tract, Via Natural or Artificial Opening Endoscopic (ICD-10-PCS; CPT 45378; principal; 2022-01-19 11:30)
DX: K57.31 Diverticulosis of large intestine without perforation or abscess with bleeding (principal); M06.00 Rheumatoid arthritis without rheumatoid factor, unspecified site; Z79.52 Long term (current) use of systemic steroids; N28.89 Other specified disorders of kidney and ureter; N40.1 Benign prostatic hyperplasia with lower urinary tract symptoms; E11.22 Type 2 diabetes mellitus with diabetic chronic kidney disease; N18.9 Chronic kidney disease, unspecified; M10.9 Gout, unspecified; Z96.643 Presence of artificial hip joint, bilateral
CPT/HCPCS: 36415; 45378; 74177; 80048; 80053; 83690; 85014; 85018; 85025; 86850; 86900; 99285; C9113; J2704; J7030; J7120; Q9967

== ENCOUNTER → 2022-02-01 15:42 | Outpatient (BNVA) | payer MEDICARE, OTHER, SELFPAY | PROVIDERS: PCP Family Medicine; Visit Provider Surgery | DX: Z09 Encounter for follow-up examination after completed treatment for conditions other than malignant neoplasm (principal); K57.31 Diverticulosis of large intestine without perforation or abscess with bleeding | CPT/HCPCS: 99212 ==

== ENCOUNTER → 2022-02-12 09:25 | Outpatient (BNVA) | payer MEDICARE, OTHER, SELFPAY | PROVIDERS: PCP Family Medicine; Visit Provider Internal Medicine Rheumatology | DX: M06.0A Rheumatoid arthritis without rheumatoid factor, other specified site (principal); Z79.899 Other long term (current) drug therapy; Z71.85 Encounter for immunization safety counseling; Z79.52 Long term (current) use of systemic steroids; Z87.19 Personal history of other diseases of the digestive system | CPT/HCPCS: 99214 ==

== ENCOUNTER 2022-02-21 13:11 | Inpatient (IN) | payer MEDICARE, OTHER, SELFPAY ==
[2022-02-21] VITALS (17 sets, daily range): BP systolic 119–178; BP diastolic 66–118; PULSE 44–89; RESP 9–23; TEMP 36.7–39.1; O2SAT 96–100; BMI 26.6
--- NOTE | 2022-02-21 13:28 | CT_ITS ---
WS: [id number] CT HEAD TECHNIQUE: Noncontrast CT of the head obtained from the skullbase to the vertex. CLINICAL INFORMATION: ams COMPARISON: None. DLP: 1157.[address] scans at [facility] use at least one of these dose optimization techniques: automated e xposure control; mA and/or kV adjustment per patient size (includes targeted exams where dose is matc hed to clinical indication); or iterative reconstruction. FINDINGS: No evidence of intracranial hemorrhage or mass effect. Ventricular system and basal cisterns are fields nt. Mild small vessel changes with mild parenchymal volume loss. No extra-axial fluid collections. No evidence of mass or mass effect. Retention cysts or polyps in the maxillary sinuses. Mild mucosal th ickening ethmoid air cells. Mastoid air cells well aerated. Normal posterior nasopharynx. Intracrania l vascular calcification. CT/CT head wo con* [id number] IMPRESSION: 1. No evidence of intracranial hemorrhage or mass effect. 2. Mild small vessel changes with mild parenchymal volume loss. 3. No acute intracranial findings.
--- NOTE | 2022-02-21 13:28 | XRR_ITS ---
PROCEDURE INFORMATION: Exam: XR Chest Exam date and time: 02/21/2022 1:36 PM Age: 71 years old Clinical indication: Other: AMS TECHNIQUE: Imaging protocol: Radiologic exam of the chest. Views: 1 view. COMPARISON: CT abdomen pelvis w con* [id number] 01/17/2022 10:54 PM FINDINGS: Lungs: Unremarkable. No consolidation. Pleural spaces: Unremarkable. No pleural effusion. No pneumothorax. Heart/Mediastinum: Unremarkable. No cardiomegaly. Bones/joints: Prominent chronic degenerative changes are present in the shoulders. No acute bony abnormality. XR/XR chest 1V portable [id number] IMPRESSION: No acute findings.
--- NOTE | 2022-02-21 13:32 | W.ED.SYNCOPE ---
HPI - Syncope General: Chief Complaint: Syncope Stated Complaint: possible seizure Time Seen by Provider: 02/21/22 13:14 History of Present Illness: Patient comes in by EMS after having what appeared to be a seizure. The patient's states that they were both on treadmills at the fitness center when she heard him making grunting snorting noises. States she turned around to find him unresponsive and not acting himself. States the episode lasted for maybe a minute or so. States that he has been confused since then. No history of seizures. Denies any ill symptoms recently including no fever, cough, vomiting, diarrhea, congestion. States he has not been complaining of any chest pain, abdominal pain, or headache. Denies any new medication or wivw-mwy-fujajfh herbs or supplements. Review of Systems General: Reports: ROS unobtainable due to mental status PFSH ED PFSH: Medical History Acute lower GI hemorrhage BPH loc w urin obs/LUTS Chronic kidney disease Identified September 2020 although had been on Bactrim prior to this, I do not have baseline laboratory studies otherwise. Renal ultrasound at the time demonstrated numerous bilateral cysts and complex cysts. Chronic steroid use Diabetes A1c 09/2020 6.3 DJD (degenerative joint disease) Elevated PSA Gout High risk medication use Immunization counseling Inflammatory arthritis Kidney lesion Left inguinal hernia Left knee pain Renal cyst Right renal mass Rotator cuff tear arthropathy of right shoulder Septic arthritis Septic olecranon bursitis of left elbow (~09/2020) Seronegative rheumatoid arthritis affecting lower leg Surgical History H/O eye surgery H/O total hip arthroplasty Bilateral H/O vasectomy History of elbow surgery History of knee surgery Family History Family/Other CAD (coronary artery disease) Cancer Lung Stroke Mother , AT AGE 77 Parkinson disease Father , IN HIS 80'S Hepatitis C Other Hypertension Denies family history of Rheumatoid arthritis Diabetes Lupus Hyperlipidemia Chronic kidney disease (CKD) Family history of premature coronary artery disease Social History Smoking and tobacco status: never smoked Alcohol intake: never Marital status: Current occupational status: retired History of recent travel: No Physical Exam Const: COMMON NORMALS: healthy appearing OTHER: Patient is somnolent but will awaken to voice HENMT: COMMON NORMALS: normocephalic and atraumatic HEAD & SCALP: normocephalic and atraumatic OTHER: Bruising to the end of the tongue Eye: COMMON NORMALS: Equal, round and reactive pupils present and EOMs intact bilaterally PUPIL: Yes Equal, round and reactive pupils present Neck/C-Spine: COMMON NORMALS: full ROM and supple Resp: COMMON NORMALS: normal respiratory effort, No retractions and No use of accessory muscles Cardio: COMMON NORMALS: regular rate and regular rhythm RATE: regular rate RHYTHM: regular rhythm GI: COMMON NORMALS: Normal to inspection, nondistended, normoactive bowel sounds present, Soft to palpation and non-tender PALPATION: Yes Soft to palpation Back/Pelvis: COMMON NORMALS: thoracic and lumbar spine normal to inspection and no thoracic nor lumbar tenderness Extremity: COMMON NORMALS: normal to inspection and full ROM Skin: COMMON NORMALS: no rashes or lesions noted and no wounds GENERAL SKIN EXAM: no rashes or lesions noted Course Vital Signs: Vital signs: Vital Signs Temperature 102.3 F H 02/21/22 13:57 Pulse Rate 89 02/21/22 16:33 Respiratory Rate 17 02/21/22 16:33 Blood Pressure 140/118 02/21/22 16:33 Pulse Oximetry 96 02/21/22 16:33 Oxygen Delivery Me thod 02/21/22 16:33 Oxygen Flow Rate 3 02/21/22 16:33 MDM - Syncope Medical Decision Making Patient comes in by EMS after having what appeared to be a seizure. The patient's states that they were both on treadmills at the fitness center when she heard him making grunting snorting noises. States she turned around to find him unresponsive and not acting himself. States the episode lasted for maybe a minute or so. States that he has been confused since then. No history of seizures. Denies any ill symptoms recently including no fever, cough, vomiting, diarrhea, congestion. States he has not been complaining of any chest pain, abdominal pain, or headache. Denies any new medication or nspy-yxc-kgcuyfu herbs or supplements. On physical exam he is somnolent but will awaken to voice. He is oriented to person and somewhat confused. He has bruising to the end of his tongue what appears he bit his tongue. He also had loss of bowel and bladder. We will check labs, CT, x-ray, and reassess On reassessment I talked to the patient and his about the test results. I discussed the case with the hospitalist. We will give the patient a dose of Lovenox, and admit for further work-up and treatment.. Lab Data 02/21/22 13:37 02/21/22 13:37 Radiology Impressions Chest X-Ray 02/21/22 13:28 IMPRESSION: No acute findings. Head CT 02/21/22 13:28 IMPRESSION: 1. No evidence of intracranial hemorrhage or mass effect. 2. Mild small vessel changes with mild parenchymal volume loss. 3. No acute intracranial findings. Laboratory Results WBC 9.1 10^3/uL (4.0-10.0) 02/21/22 13:37 RBC 5.18 10^6/uL (4.1-5.3) 02/21/22 13:37 Hgb 14.7 g/dL (11.7-16.6) 02/21/22 13:37 Hct 44.7 % (42.0-52.0) 02/21/22 13:37 MCV 86.3 fl (80-94) 02/21/22 13:37 MCH 28.4 pg (28.0-34.0) 02/21/22 13:37 MCHC 32.9 g/dL (30.0-36.0) 02/21/22 13:37 RDW 14.2 % (12.1-15.1) 02/21/22 13:37 Plt Count 364 10^3/cmm (130-400) 02/21/22 13:37 MPV 10.5 fL (7.4-10.4) H 02/21/22 13:37 Neut % (Auto) 45.5 % 02/21/22 13:37 Lymph % (Auto) 35.6 % 02/21/22 13:37 Morgan % (Auto) 11.5 % 02/21/22 13:37 Eos % (Auto) 4.8 % 02/21/22 13:37 Baso % (Auto) 2.2 % 02/21/22 13:37 Neut # (Auto) 4.12 10^3/uL (1.8-7.7) 02/21/22 13:37 Lymph # (Auto) 3.2 10^3/uL (0.8-4.8) 02/21/22 13:37 Morgan # (Auto) 1.0 10^3/uL (0.2-0.9) H 02/21/22 13:37 Eos # (Auto) 0.4 10^3/uL (0.0-0.8) 02/21/22 13:37 Baso # (Auto) 0.2 10^3/uL (0.0-0.1) H 02/21/22 13:37 Nucleated RBC % (auto) 0 % 02/21/22 13:37 Nucleated RBCs # 0.0 /100WBC 02/21/22 13:37 Specimen Type Arterial 02/21/22 13:41 Sample Site Radial, left 02/21/22 13:41 ABG pH 7.63 (7.35-7.45) H* 02/21/22 13:41 ABG pCO2 17.1 mmHg (35-45) L* 02/21/22 13:41 ABG pO2 131.0 mmHg (80.0-100.0) H 02/21/22 13:41 ABG HCO3 17.7 mmol/L (22-26) L 02/21/22 13:41 ABG Base Excess -0.6 mmol/L (-2.0-2.0) 02/21/22 13:41 Mickey Test Pos 02/21/22 13:41 Hematocrit 43.9 % (42-52) 02/21/22 13:41 Hgb O2 Saturation 98.2 % (95-100) 02/21/22 13:41 Carboxyhemoglobin < 1.0 %THgb (0.4-20.1) 02/21/22 13:41 Methemoglobin 0.3 % (0.4-1.5) L 02/21/22 13:41 Total Hemoglobin 14.3 g/dL (14-18) 02/21/22 13:41 O2 Delivery Device Room air 02/21/22 13:41 FiO2 21.0 % 02/21/22 13:41 Spring Repairer Helper Hand ID glc 02/21/22 13:41 Sodium 138 mmol/L (136-145) 02/21/22 13:37 Potassium 3.2 mmol/L (3.5-5.1) L 02/21/22 13:37 Chloride 104 mmol/L (98-107) 02/21/22 13:37 Carbon Dioxide 20 mmol/L (22-29) L 02/21/22 13:37 Anion Gap 17.2 (5-19) 02/21/22 13:37 BUN 14 mg/dL (8-23) 02/21/22 13:37 Creatinine 1.2 mg/dL (0.7-1.2) 02/21/22 13:37 GFR Calculation Not Reportable 02/21/22 13:37 Glucose 128 mg/dL (65-115) H 02/21/22 13:37 Calculated Osmolality 288 mOsm/kg (285-295) 02/21/22 13:37 Lactate 4.8 mmol/L (0.5-2.2) H* 02/21/22 14:23 Calcium 9.4 mg/dL (8.5-10.5) 02/21/22 13:37 Magnesium 2.0 mg/dL (1.7-2.3) 02/21/22 13:37 Total Bilirubin 0.4 mg/dL (0.15-1.2) 02/21/22 13:37 AST 27 U/L (0-40) 02/21/22 13:37 ALT 21 U/L (0-41) 02/21/22 13:37 Alkaline Phosphatase 124 U/L (40-130) 02/21/22 13:37 Ammonia 30 umol/L (16-60) 02/21/22 13:37 Troponin T Baseline 25 ng/L (0-15) H 02/21/22 13:37 Troponin T 120 Minute 235.5 ng/L (0-15) H 02/21/22 15:31 Delta Troponin T 210.5 ABS# (0-10) H* 02/21/22 15:31 Total Protein 6.8 g/dL (6.6-8.7) 02/21/22 13:37 Albumin 4.2 g/dL (3.5-5.2) 02/21/22 13:37 Globulin 2.6 g/dL (1.3-4.6) 02/21/22 13:37 TSH 4.85 uIU/mL (0.27-4.20) H 02/21/22 13:37 Urine Color Yellow (Yellow) 02/21/22 14:45 Urine Appearance Clear (CLEAR) 02/21/22 14:45 Urine pH 6.5 (5-7) 02/21/22 14:45 Ur Specific [place] 1.010 (1.005-1.030) 02/21/22 14:45 Urine Protein Neg (Negative) 02/21/22 14:45 Urine Glucose (UA) Norm (Normal) 02/21/22 14:45 Urine Ketones Negative (Negative) 02/21/22 14:45 Urine Blood Neg (Negative) 02/21/22 14:45 Urine Nitrate Negative (Negative) 02/21/22 14:45 Urine Bilirubin Neg (Negative) 02/21/22 14:45 Urine Urobilinogen Norm mg/dL (Negative) 02/21/22 14:45 Ur Leukocyte Esterase Negative (Negative) 02/21/22 14:45 Salicylates < 0.3 mg/dL (3-10) L 02/21/22 13:37 Urine Opiates Screen Negative ng/mL (Negative) 02/21/22 14:45 Acetaminophen < 5.0 ug/mL (10-30) L 02/21/22 13:37 Ur Barbiturates Screen Negative ng/mL (Negative) 02/21/22 14:45 Ur Phencyclidine Scrn Negative ng/mL (Negative) 02/21/22 14:45 Ur Amphetamines Screen Negative ng/mL (Negative) 02/21/22 14:45 U Benzodiazepines Scrn Negative ng/mL (Negative) 02/21/22 14:45 Urine Cocaine Screen Negative ng/mL (Negative) 02/21/22 14:45 U Marijuana (THC) Screen Negative ng/mL (Negative) 02/21/22 14:45 Ethyl Alcohol < 10 mg/dL (0-10) 02/21/22 13:37 Influenza Type A Ag negative (Negative) 02/21/22 13:50 Influenza Type B Ag negative (Negative) 02/21/22 13:50 SARS-CoV-2 Ag (Rapid) negative (Negative) 02/21/22 13:50 Discharge Plan Discharge Patient Disposition: Admitted As Inpatient Clinical Impression: Elevated troponin, Alkalosis, metabolic, Seizure Condition: Stable Prescriptions: No Action allopurinol 300 mg tablet 300 mg PO QAM Nexium 20 mg capsule,delayed release(DR/EC) 20 mg PO BID hydroxychloroquine 200 mg tablet 200 mg PO BID Qty: 60 3RF leflunomide 20 mg tablet 20 mg PO QAM Qty: 90 0RF tamsulosin 0.4 mg capsule 0.8 mg PO BEDTIME chlorhexidine gluconate 0.12 % mouthwash See Rx Instructions .ROUTE .COMPLEX Rx Instructions: swish and spit 15ml po twice a day fexofenadine 180 mg Tablet 180 mg PO DAILY Referrals: Carlos Ansari MD [Primary Care Provider] - Coding Level of Care Code ED Privacy Officer for Chg Fwd Exam Comprehensive
[2022-02-21] MEDS: sodium chloride 0.9% 1,000 ML 999 ML IV ×2 (13:42→15:05)
[2022-02-21] MEDS: ondansetron 2 mg/ML SDV 2 mL 4 MG IVP (13:42)
[2022-02-21 13:45] LABS: Basophils # 0.2 10^3/uL (0.0-0.1); Basophils % 2.2 %; Eosinophils # 0.4 10^3/uL (0.0-0.8); Eosinophils % 4.8 %; Hematocrit 44.7 % (42.0-52.0); Hemoglobin 14.7 g/dL (11.7-16.6); Lymphocytes # 3.2 10^3/uL (0.8-4.8); Lymphocytes % 35.6 %; Mean Corpuscular HGB Conc 32.9 g/dL (30.0-36.0); Mean Corpuscular Hemoglobin 28.4 pg (28.0-34.0); Mean Corpuscular Volume 86.3 fl (80-94); Mean Platelet Volume 10.5 fL (7.4-10.4); Monocytes % 11.5 %; Neutrophils # 4.12 10^3/uL (1.8-7.7); Neutrophils % 45.5 %; Nucleated Red Blood Cells % 0 %; Platelet Count 364 10^3/cmm (130-400); Red Blood Count 5.18 10^6/uL (4.1-5.3); Red Cell Distribution Width 14.2 % (12.1-15.1); White Blood Count 9.1 10^3/uL (4.0-10.0)
--- NOTE | 2022-02-21 13:48 | ECG_ITS ---
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 Measurements Intervals [place] Rate: 54 P: 42 RI: 174 QRS: 28 QRSD: 102 T: 41 QT: 502 QTc: 480 Interpretive Statements SINUS BRADYCARDIA WITH MARKED SINUS ARRHYTHMIA LOW QRS VOLTAGE IN PRECORDIAL LEADS [QRS DEFLECTION < 1.0 mV IN CHEST LEADS] PROLONGED QT INTERVAL No previous ECG available for comparison Electronically Signed On 02-21-2022 17:55:37 HEMATOLOGY TECHNOLOGIST by Trey Harrington M.D. [id number]
[2022-02-21 13:52] LABS: Arterial Blood Gas Hematocrit 43.9 % (42-52); Base Excess ABG -0.6 mmol/L (-2.0-2.0); Blood Gas Allen Test Pos; Blood Gas Operator Identificat glc; Blood Gas Sample Site Radial, left; Blood Gas Sample Type Arterial; Carboxyhemoglobin < 1.0 %THgb (0.4-20.1); HCO3 ABG 17.7 mmol/L (22-26); HGB O2 Sat 98.2 % (95-100); Methemoglobin 0.3 % (0.4-1.5); Oxygen Device ROOM AIR; Total Hemoglobin 14.3 g/dL (14-18)
[2022-02-21 14:07] LABS: Troponin(5th) Baseline 25 ng/L (0-15)
[2022-02-21 14:11] LABS: ABG PH Result 7.63 (7.35-7.45)
[2022-02-21 14:12] LABS: ABG PCO2 17.1 mmHg (35-45)
--- NOTE | 2022-02-21 14:12 | CTR_ITS ---
PROCEDURE INFORMATION: Exam: CTA Chest With Contrast Exam date and time: 02/21/2022 4:00 PM Age: 71 years old Clinical indication: Shortness of breath; Additional info: Concern for pe, collapsed on treadmill. TECHNIQUE: Imaging protocol: Computed tomographic angiography of the chest with contrast. 3D rendering (Not supervised by radiologist): MIP and/or 3D reconstructed images were created by the technologist. Radiation optimization: All CT scans at this facility use at least one of these dose optimization techniques: automated exposure control; mA and/or kV adjustment per patient size (includes targeted exams where dose is matched to clinical indication); or iterative reconstruction. Contrast material: OMNIPAQUE 350; Contrast volume: 95 ml; Contrast route: INTRAVENOUS (IV); COMPARISON: CR XR chest 1V portable [id number] 02/21/2022 1:36 PM RADIATION DOSE METRICS: Total DLP (mGy-cm): 432.1 FINDINGS: Pulmonary arteries: Normal. No pulmonary emboli. 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 Lungs: Mosaic attenuation in both lungs, consistent with mild air trapping related to small airways disease. Mild atelectasis. Left upper lobe calcified granuloma. Pleural spaces: Unremarkable. No pneumothorax. No pleural effusion. Heart: Coronary artery calcifications. The heart size is normal. Lymph nodes: Calcified mediastinal and hilar lymph nodes. Gallbladder and bile ducts: Multiple stones in a partially contracted gallbladder. The bile ducts are normal. Spleen: Calcified granulomas in the spleen. Kidneys and ureters: Right renal cortical cyst, Hounsfield units less than 20. No follow-up imaging is recommended. Stomach and bowel: Diverticulosis of the colon. Bones/joints: Mild degenerative changes and curvature of the spine. No fracture. Soft tissues: Unremarkable. CT/CT angio chest PE protcl [id number] IMPRESSION: 1. No evidence for pulmonary embolus. 2. No acute pulmonary finding. 3. Cholelithiasis. COMMENTS: Consistent with the [employer]'s Incidental Findings Committee white paper (J Am Noble Radiol 2018): Any incidental renal lesion less than 1 cm or classified as too small to characterize, or any incidental cystic renal lesion characterized as simple-appearing, is likely benign. No follow-up imaging is recommended for these lesions per consensus recommendations based on imaging criteria.
[2022-02-21 14:16] LABS: Alanine Aminotransferase 21 U/L (0-41); Albumin Level 4.2 g/dL (3.5-5.2); Alkaline Phosphatase 124 U/L (40-130); Anion Gap 17.2 (5-19); Aspartate Amino Transferase 27 U/L (0-40); Blood Urea Nitrogen 14 mg/dL (8-23); Calcium 9.4 mg/dL (8.5-10.5); Carbon Dioxide 20 mmol/L (22-29); Chloride 104 mmol/L (98-107); Globulin 2.6 g/dL (1.3-4.6); Glucose 128 mg/dL (65-115); Osmolality Calculated 288 mOsm/kg (285-295); Potassium 3.2 mmol/L (3.5-5.1); Sodium 138 mmol/L (136-145); Thyroid Stimulating Hormone 4.85 uIU/mL (0.27-4.20); Total Bilirubin 0.4 mg/dL (0.15-1.2); Total Protein 6.8 g/dL (6.6-8.7)
[2022-02-21 14:20] LABS: Acetaminophen < 5.0 ug/mL (10-30); Alcohol Level < 10 mg/dL (0-10); Salicylate < 0.3 mg/dL (3-10)
[2022-02-21 14:26] LABS: Influenza A by IFA negative (Negative); Influenza B by IFA negative (Negative)
[2022-02-21 14:27] LABS: SARS Covid-2 Antigen negative (Negative)
[2022-02-21 14:46] LABS: Ammonia 30 umol/L (16-60)
[2022-02-21 14:57] LABS: Add Urine Microscopic? NO; Charge for UA Resulting for Rev
[2022-02-21 14:57] LABS: Lactate (Lactic Acid level) 4.8 mmol/L (0.5-2.2)
[2022-02-21 15:00] LABS: Bilirubin Urine Neg (Negative); Blood Urine Neg (Negative); Glucose Urine UA Norm (Normal); Ketones Urine Negative (Negative); Leukocyte Esterase Urine Negative (Negative); Nitrate Urine Negative (Negative); Protein Urine Neg (Negative); Urine Appearance Clear (CLEAR); Urine Color Yellow (Yellow); Urobilinogen Urine Norm (Negative); pH Urine 6.5 (5-7)
[2022-02-21 15:09] LABS: Amphetamines Screen Urine Negative (Negative); Barbiturates Screen Urine Negative (Negative); Benzodiazepines Screen Urine Negative (Negative); Cocaine Screen Urine Negative (Negative); Opiate Screen Urine Negative (Negative); PCP Screen Urine Negative (Negative); THC Screen Urine Negative (Negative)
--- NOTE | 2022-02-21 15:30 | ECG_ITS ---
[facility] Test Date: 2022-02-21 Pat Name: Pedro Gomez Department: Room: Gender: Male Ink Jet Operator: : 1950 Requested By: Filiberto Moreno Order Number: [id number] James MD: Trey Harrington M.D. Measurements Intervals [place] Rate: 44 P: 27 MT: 153 QRS: 10 QRSD: 91 T: 93 QT: 526 QTc: 454 Interpretive Statements SINUS BRADYCARDIA WITH OCCASIONAL SUPRAVENTRICULAR PREMATURE COMPLEXES LOW QRS VOLTAGE IN PRECORDIAL LEADS [QRS DEFLECTION < 1.0 mV IN CHEST LEADS] NONSPECIFIC T-WAVE ABNORMALITY PROLONGED QT INTERVAL Compared to ECG 02/21/2022 13:48:01 T-wave abnormality now present Sinus arrhythmia no longer present Electronically Signed On 02-21-2022 18:06:06 CONSUMER BANKER by Trey Harrington M.D. [id number]
[2022-02-21 16:04] LABS: Troponin 5 2HR 235.5 ng/L (0-15)
[2022-02-21 16:06] LABS: Troponin 5 2HR Delta 210.5 ABS# (0-10)
--- NOTE | 2022-02-21 16:50 | USCV_ITS ---
Pedro Gomez Age: 71 Gender: M : 1950 Exam Date: 02/21/2022 20:21 Ordering Phys: Connor Lima MD Technologist: NILA Exam Location: [facility] [place] Indication: NSTEMI No history of cardiac intervention per patient. BP: 140 / 118 HR: 45 Rhythm: Sinus bradycardia Technical Quality: Adequate MEASUREMENTS (Male / Female) Normal Values 2D ECHO LV Diastolic Diameter PLAX 4.3 cm 4.2 - 5.9 / 3.9 - 5.3 cm LV Systolic Diameter PLAX 2.8 cm IVS Diastolic Thickness 1.7 cm 0.6 - 1.0 / 0.6 - 0.9 cm IVS Systolic Thickness 2.2 cm LVPW Diastolic Thickness 1.3 cm 0.6 - 1.0 / 0.6 - 0.9 cm LVPW Systolic Thickness 1.6 cm LVOT Diameter 2.1 cm LV Ejection Fraction 2D Teich 64.9 % LV Ejection Fraction MOD 2C 71.6 % LV Ejection Fraction 2C AL 73.1 % LA Diameter 4.4 cm LA Width 3.8 cm LA Height 6.0 cm RA Width 3.7 cm RA Height 4.3 cm Aorta at Sinotubular Diameter 3.1 cm IVC Diameter 1.3 cm M-MODE Aortic Annulus Diameter 3.0 cm LA Ao Ratio MM 1.5 MV E Point Septal Separation 0.6 cm DOPPLER AV Peak Velocity 132.0 cm/s LVOT Peak Velocity 62.0 cm/s AV Area Cont Eq vti 1.8 cm squared AV Area Cont Eq pk 1.7 cm squared MV Area PHT 5.0 cm squared Mitral E to A Ratio 0.7 MV E' Velocity 38.5 cm/s Mitral E to MV E' Ratio 8.9 Mitral E to LV E' Lateral Ratio 7.6 Mitral E to LV E' Septal Ratio 10.8 TR Peak Velocity 233.0 cm/s TR Peak Gradient 21.7 mmHg TV Peak E Velocity 42.0 cm/s Right Atrial Pressure 10.0 mmHg Pulmonary Artery Systolic Pressu 31.7 mmHg PV Peak Velocity 85.0 cm/s RV Acceleration Time 0.1 s RV Ejection Time 0.4 s RV AcT/ET 0.3 FINDINGS Left Ventricle Normal left ventricular cavity size. Mildly increased left ventricular wall thickness. Normal left ventricular systolic function. Left ventricular ejection fraction is estimated at 55 %. There is mild hypokinesis of mid to apical anterolateral and apical septal [place]. Normal diastolic function. Right Ventricle Normal right ventricular size and systolic function. Right ventricular systolic pressure 21 mmHg. Right Atrium Normal right atrial size. Left Atrium Upper normal left atrial size. Mitral Valve Mildly thickened mitral valve. Aortic Valve Structurally normal trileaflet aortic valve. No aortic valve stenosis. No aortic valve regurgitation. Tricuspid Valve Structurally normal tricuspid valve. No tricuspid valve stenosis. Trace tricuspid valve regurgitation. Pulmonic Valve Structurally normal pulmonic valve. No pulmonary valve stenosis. Trace pulmonary valve regurgitation. Pericardium No pericardial effusion. Aorta Normal size aortic root and proximal ascending aorta. IVC Normal IVC dimension with >50% respiratory change of the inferior vena cava. CONCLUSIONS 1. Normal left ventricular cavity size. Mildly increased left ventricular wall thickness. Normal left ventricular systolic function. Left ventricular ejection fraction is estimated at 55 %. There is mild hypokinesis of mid to apical anterolateral and apical septal [place]. Normal diastolic function. 2. Pulmonary artery pressure estimated at 21 mmHg. 3. When compared to previous study dated 11/22/2020, there seems to be new regional wall motion abnormality now. Addie Alexandre MD (Electronically Signed) Final Date: 22 February 2022 14:43 S
--- NOTE | 2022-02-21 16:52 | P.HP_ITS ---
Providers/Chief Complaint Primary Care Provider: Carlos Ansari MD Chief Complaint: possible seizure History of Present Illness Pedro Gomez is a 71 year old male with past medical history of seronegative RA, gout, was exercising on treadmill today, when what appears to be possible seizure-like episode, according to patient's she heard him making grunting snorting noises. When she turned around to look at him she found him unresponsive. The episode lasted for few minutes, also noticed involuntary urination, patient was confused for some time, after the episode.She denied any jerking movements. According to the patient, lately he has experienced bilateral jaw tingling, towards the end of his routine half a mile walk, he is also complaining of some upper back pain back pain. Upon arrival in the ER he was worked up for above-mentioned complaint: Pertinent imaging studies: CTA chest: No pulmonary embolism, no aortic dissection , no infiltrates. Mild aneurysmal dilatation of the ascending thoracic aorta measuring 3.[address] head without contrast: No acute intracranial pathology EKG: Sinus bradycardia no acute ST-T wave changes. ABG: pH 7.63, PCO2 17, PO2 131, on room air Pertinent labs: WBC 9.1 H&H 14/44 , PLT : 364 , sodium 138 potassium 3.2, serum bicarb 20, random blood sugar 128, serum lactate 4.8, TSH: 4.85 Troponin:25-235 - Urinalysis is clean, U tox is negative. Patient received 2 L normal saline in the ER, as well as 1 dose of therapeutic Lovenox. Review of Systems General: Reports: 10 or more systems reviewed and unremarkable except in HPI and below Const: Denies: fever(s), chills, body aches, change in appetite or diaphoresis Card: Denies: palpitations, edema, swelling of feet/ankles, dyspnea on exertion, orthopnea or leg pain with exertion Resp: Denies: dyspnea, productive cough, wheezing or pain on inspiration GI: Denies: abdominal pain, nausea, vomiting, diarrhea or constipation : Denies: flank pain or difficulty urinating Musc: Denies: back pain, extremity pain or extremity swelling Neuro: Denies: headache(s), difficulty walking or confusion Medications/Allergies Home Medications Medication Instructions Recorded Confirmed Last Taken Type allopurinol 300 mg tablet 300 mg PO QAM 06/03/19 02/21/22 02/21/22 History tamsulosin 0.4 mg capsule 0.8 mg PO BEDTIME 11/21/20 02/21/22 02/20/22 History fexofenadine 180 mg tablet 180 mg PO DAILY 01/18/22 02/21/22 02/21/22 History esomeprazole magnesium 20 mg 20 mg PO BID 02/12/22 02/21/22 02/21/22 History capsule,delayed release (Nexium) hydroxychloroquine 200 mg tablet 200 mg PO BID #60 tabs 02/12/22 02/21/22 02/21/22 Rx leflunomide 20 mg tablet 20 mg PO QAM #90 tabs 02/19/22 02/21/22 02/21/22 Rx chlorhexidine gluconate 0.12 % See Rx Instructions .Route .COMPLEX 02/21/22 02/21/22 02/21/22 History mouthwash Allergies Allergy/AdvReac Type Severity Reaction Status Date / Time No Known Allergies Allergy Verified 02/21/22 15:08 PFSH Acute PFSH: Medical History Acute lower GI hemorrhage BPH loc w urin obs/LUTS Chronic kidney disease Identified September 2020 although had been on Bactrim prior to this, I do not have baseline laboratory studies otherwise. Renal ultrasound at the time demonstrated numerous bilateral cysts and complex cysts. Chronic steroid use Diabetes A1c 09/2020 6.3 DJD (degenerative joint disease) Elevated PSA Gout High risk medication use Immunization counseling Inflammatory arthritis Kidney lesion Left inguinal hernia Left knee pain Renal cyst Right renal mass Rotator cuff tear arthropathy of right shoulder Septic arthritis Septic olecranon bursitis of left elbow (~09/2020) Seronegative rheumatoid arthritis affecting lower leg Surgical History H/O eye surgery H/O total hip arthroplasty Bilateral H/O vasectomy History of elbow surgery History of knee surgery Family History Family/Other CAD (coronary artery disease) Cancer Lung Stroke Mother , AT AGE 77 Parkinson disease Father , IN HIS 80'S Hepatitis C Other Hypertension Denies family history of Rheumatoid arthritis Diabetes Lupus Hyperlipidemia Chronic kidney disease (CKD) Family history of premature coronary artery disease Social History Smoking and tobacco status: never smoked Alcohol intake: never Marital status: Current occupational status: retired History of recent travel: No Vitals/I&O/Wt Last Vital Signs Temp 102.3 F H 02/21/22 13:57 Pulse 89 02/21/22 16:33 Resp 17 02/21/22 16:33 BP 140/118 02/21/22 16:33 Pulse Ox 96 02/21/22 16:33 O2 Del Method 02/21/22 16:33 O2 Flow Rate 3 02/21/22 16:33 02/21/22 02/21/22 02/21/22 06:59 14:59 22:59 Intake Total 1000 / 1000 Balance 1000 / 1000 Weight last 48 hrs Weight 79.379 kg Physical Exam Const: COMMON NORMALS: patient oriented x3 Resp: COMMON NORMALS: normal respiratory effort and clear to auscultation bilaterally Cardio: COMMON NORMALS: regular rate, regular rhythm, S1 normal heart sound present, S2 normal heart sound present, No gallops present (Cardio), No murmurs present (Cardio), No rub (Cardio) and Peripheral pulses 2+ throughout RATE: regular rate RHYTHM: regular rhythm HEART SOUNDS: S1 normal heart sound present and S2 normal heart sound present PERIPHERAL PULSES: Peripheral pulses 2+ throughout GI: COMMON NORMALS: Normal to inspection, nondistended, normoactive bowel sounds present, Soft to palpation, non-tender, No hepatosplenomegaly present and no masses AUSCULTATION: Yes normoactive bowel sounds PALPATION: Yes Soft to palpation and Yes No hepatosplenomegaly present RECTAL EXAM: Yes deferred Extremity: COMMON NORMALS: no clubbing, cyanosis or edema and no pedal edema Data 02/21/22 13:37 02/21/22 13:37 Micro: Microbiology 02/21/22 15:45 Blood Culture - Preliminary Blood SPECIMEN COLLECTED 02/21/22 15:31 Blood Culture - Preliminary Blood SPECIMEN COLLECTED A&P Assessment and plan (1) NSTEMI (non-ST elevated myocardial infarction): (2) Acute respiratory alkalosis: (3) Seizure: (4) Seronegative rheumatoid arthritis affecting lower leg: (5) Gout: (6) Elevated lactic acid level: (7) Hypokalemia: (8) Cholelithiasis: Plan 71 year old male with past medical history of seronegative RA, gout, was exercising on treadmill today, when what appears to be possible seizure-like episode, according to patient's she heard him making grunting snorting noises. When she turned around to look at him she found him unresponsive. The episode lasted for few minutes, also noticed involuntary urination, patient was confused for some time, after the episode.She denied any jerking movements. Assessment: NSTEMI Possible seizure Acute respiratory alkalosis Elevated lactic acid Hypokalemia Gout Fever H/O seronegative RA Cholelithiasis Plan: Follow 6-hour troponin 2D echo Influenza negative COVID-negative Seizure precaution Aspiration precaution Follow blood culture Follow repeat lactic acid Follow a.m. prolactin Follow CPK For now we will keep him on ACS protocol (aspirin statin, therapeutic antic oagulant) anticoagulation Possible stress test Possible cardiology consult CT and x-ray chest has not shown any signs suggestive of aspiration, for now we will keep patient off antibiotics and monitor. If he continues to spike then will have to cover him with antibiotics. CODE STATUS: Full code DVT prophylaxis: Not needed on therapeutic anticoagulation Attestations Medical Necessity Statement*: Patient is still in hospital for management of NSTEMI. Anticipated length of stay greater than 2 midnights Time Spent in Patient Care: Greater than 35 minutes (>than 50% of time spent in counselling and/or direct pt care on unit) . Coding Level of Care Code Acute Project Inspector for [facility] Fwd Exam Detailed Diagnoses NSTEMI (non-ST elevated myocardial infarction) I21.4 Acute respiratory alkalosis E87.3 Seizure R56.9 Seronegative rheumatoid arthritis affecting lower leg M06.00 Gout M10.9 Elevated lactic acid level R79.89 Hypokalemia E87.6 Cholelithiasis K80.20
[2022-02-21] MEDS: enoxaparin 80 mg/0.8 mL Syringe SUBCUT (17:28)
[2022-02-21] MEDS: hydroxychloroquine 200 mg Tablet PO (17:29)
[2022-02-21 19:43] LABS: Troponin 5 6HR 491.1 ng/L (0-15); Troponin 5 6HR Delta 466.1 ng/L (0-12)
--- NOTE | 2022-02-21 19:52 | PC.NURSE ---
1850 Patient recieved to room 264 patient awake, alert and oriented x 3 accompanied by his . lungs clear bilat Patient is on room air. abd soft with active bowel sounds. voiding without difficulty, periphearal pulses present and palpable 2+.
[2022-02-21] MEDS: potassium chloride ER 20 mEq Tablet 40 MEQ PO (21:33)
[2022-02-21] MEDS: tamsulosin 0.4 mg Capsule 0.8 MG PO (21:34)
--- NOTE | 2022-02-21 22:00 | ECG_ITS ---
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 Measurements Intervals Gomer Rate: 47 P: 32 AL: 149 QRS: 40 QRSD: 86 T: 212 QT: 451 QTc: 401 Interpretive Statements SINUS BRADYCARDIA WITH OCCASIONAL ECTOPIC PREMATURE COMPLEXES MODERATE T-WAVE ABNORMALITY, CONSIDER INFERIOR ISCHEMIA [-0.1+ mV T-WAVE IN II/aVF] Compared to ECG 02/21/2022 15:35:02 Possible ischemia now present Prolonged QT interval no longer present T-wave abnormality still present Electronically Signed On 02-22-2022 19:19:23 STUDY COORDINATOR by Addie Alexandre M.D. [id number]
[2022-02-22] VITALS (8 sets, daily range): BP systolic 103–168; BP diastolic 54–80; PULSE 45–61; RESP 14–18; TEMP 36.3–37.4; O2SAT 94–96
[2022-02-22 04:58] LABS: Basophils # 0.1 10^3/uL (0.0-0.1); Basophils % 1.5 %; Eosinophils # 0.2 10^3/uL (0.0-0.8); Eosinophils % 2.5 %; Hematocrit 40.6 % (42.0-52.0); Hemoglobin 12.9 g/dL (11.7-16.6); Lymphocytes # 1.7 10^3/uL (0.8-4.8); Lymphocytes % 18.9 %; Mean Corpuscular HGB Conc 31.8 g/dL (30.0-36.0); Mean Corpuscular Volume 88.3 fl (80-94); Mean Platelet Volume 10.5 fL (7.4-10.4); Monocytes # 0.8 10^3/uL (0.2-0.9); Monocytes % 9.5 %; Neutrophils # 5.95 10^3/uL (1.8-7.7); Neutrophils % 67.3 %; Nucleated Red Blood Cells % 0 %; Platelet Count 262 10^3/cmm (130-400); Red Cell Distribution Width 14.3 % (12.1-15.1); White Blood Count 8.8 10^3/uL (4.0-10.0)
[2022-02-22 05:19] LABS: Lactic Sepsis W/Reflex 1.2 mmol/L (0.5-2.2)
[2022-02-22] MEDS: allopurinol 300 mg Tablet PO (05:23)
[2022-02-22] MEDS: enoxaparin 80 mg/0.8 mL Syringe SUBCUT ×2 (05:24→17:20)
[2022-02-22 05:32] LABS: Procalcitonin 0.11 ng/mL (0-0.5)
[2022-02-22 05:43] LABS: Alanine Aminotransferase 17 U/L (0-41); Albumin Level 3.1 g/dL (3.5-5.2); Alkaline Phosphatase 105 U/L (40-130); Anion Gap 11.5 (5-19); Aspartate Amino Transferase 25 U/L (0-40); Blood Urea Nitrogen 12 mg/dL (8-23); Calcium 8.9 mg/dL (8.5-10.5); Carbon Dioxide 24 mmol/L (22-29); Chloride 110 mmol/L (98-107); Creatine Phosphokinase 110 U/L (39-308); Globulin 2.6 g/dL (1.3-4.6); Glucose 112 mg/dL (65-115); Magnesium 1.8 mg/dL (1.7-2.3); Osmolality Calculated 293 mOsm/kg (285-295); Potassium 4.5 mmol/L (3.5-5.1); Sodium 141 mmol/L (136-145); Total Bilirubin 0.5 mg/dL (0.15-1.2); Total Protein 5.7 g/dL (6.6-8.7)
[2022-02-22] MEDS: atorvastatin 40 mg Tablet PO (09:13)
[2022-02-22] MEDS: aspirin 81 mg EC Tablet PO (09:13)
[2022-02-22] MEDS: hydroxychloroquine 200 mg Tablet PO ×2 (10:32→17:17)
--- NOTE | 2022-02-22 11:00 | PC.CHAP ---
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 visit [] Patient/Family/Request visit [] Outpatient visit [] Follow-up visit [] Physician referral [] Code/Alert [x] Routine visit [] Staff referral [] Actively dying [] Patient sleeping [] Family support [] [] Out of room [] Palliative care [] [x] Receiving care in room [] Pre-surgical visit [] Trauma [] Long length of stay [] ICU visit [] Other: Relational/Emotional Strength [x] Patient feels connected with others/family/visitors/staff [] Distress [] Loneliness/isolation [] Abandonment Spirituality of Patient [x] Person of Judy [] Attends Church of their Judy [] Believes in Prayer [] Reads Bible or Yazdanism materials [] There are Spiritual issues to be addressed Attorney Lawyer Interventions [x] Prayer [x] Active listening [x] Non-anxious presence [x] Spiritual/emotional support [] Crisis/trauma care [x] Spiritual counseling [] Bereavement support [] Provided bereavement packet [] Provided Bible/devotional materials [] Provided toy/stuffed animal, coloring book to patient or family member [] Provided Communion [] Anointing/Sterling [] Salvation [x] Completed spiritual assessment [] Other: Impact on Illness or Injury [] Angry [] Fearful [x] Anxious [] Often cries [] Exhaustion [x] Unable to work [] Unable to attend congregational [] Unable to walk/stand [] Unable to read [] Unable to drive [] Unable to eat/drink [] Unable to sleep [] Unable to be with family [] Patient intubated [] Other: Summary senior dealing the heart waiting doctors report whether he needs tests has good attitude well go home Time spent with patient 10 mins
--- NOTE | 2022-02-22 11:18 | P.CONIM_ITS ---
Providers/Reason For Consult Consulting Physician/Specialty*: Dr. Alexandre, cardiology Reason for Consult*: Elevated troponin Attending Physician: Connor Lima MD Primary Care Provider: Carlos Ansari MD History of Present Illness History of Present Illness Pedro Gomez is a 71 year old male with past medical history of seronegative RA, gout. He was exercising on treadmill today 1/4 of mile at speed 3 miles/hr when he developed jaw pain and neck pain. He stopped his treadmill and sat down and shortly thereafter patient's she heard him making grunting snorting noises. When she looked at him she found him unresponsive. The episode lasted for few minutes, also noticed involuntary urination. No seizure or tongue bitting. Patient was confused for some time after the episode. According to the patient, lately he has experienced bilateral jaw tingling and pain towards the end of his routine half a mile walk. CTA chest: No pulmonary embolism, no aortic dissection , no infiltrates.?Mild aneurysmal dilatation of the ascending thoracic aorta measuring 3.9 cm. Cholelithiasis. EKG: Sinus bradycardia with T wave changes in I, aVL, III, aVF. Troponin:25-> 235 ->491. Echo with hypokinesis in mid to apical anterolateral and mid inferoseptal and apical septal [place]. Patient remains CP free at the time of exam. Review of Systems General: Reports: 10 or more systems reviewed and unremarkable except in HPI and below Const: Denies: fever(s), chills, body aches, change in appetite or diaphoresis Card: Denies: palpitations, edema, swelling of feet/ankles, dyspnea on exertion, orthopnea or leg pain with exertion Resp: Denies: dyspnea, productive cough, wheezing or pain on inspiration GI: Denies: abdominal pain, nausea, vomiting, diarrhea or constipation : Denies: flank pain or difficulty urinating Musc: Denies: back pain, extremity pain or extremity swelling Neuro: Denies: headache(s), difficulty walking or confusion Medications/Allergies Home Medications Medication Instructions Recorded Confirmed Last Taken Type allopurinol 300 mg tablet 300 mg PO QAM 06/03/19 02/21/22 02/21/22 History tamsulosin 0.4 mg capsule 0.8 mg PO BEDTIME 11/21/20 02/21/22 02/20/22 History fexofenadine 180 mg tablet 180 mg PO DAILY 01/18/22 02/21/22 02/21/22 History esomeprazole magnesium 20 mg 20 mg PO BID 02/12/22 02/21/22 02/21/22 History capsule,delayed release (Nexium) hydroxychloroquine 200 mg tablet 200 mg PO BID #60 tabs 02/12/22 02/21/22 02/21/22 Rx leflunomide 20 mg tablet 20 mg PO QAM #90 tabs 02/19/22 02/21/22 02/21/22 Rx chlorhexidine gluconate 0.12 % See Rx Instructions .Route .COMPLEX 02/21/22 02/21/22 02/21/22 History mouthwash Allergies Allergy/AdvReac Type Severity Reaction Status Date / Time No Known Allergies Allergy Verified 02/21/22 15:08 Current Medications Generic Name Dose Route Start Last Admin Trade Name Freq PRN Reason Stop Dose Admin Allopurinol 300 mg 02/22/22 06:00 02/22/22 05:23 Allopurinol 300 Mg Tablet PO 300 mg QAM PELON Administration Aspirin 81 mg 02/22/22 09:00 02/22/22 09:13 Aspirin 81 Mg Ec Tablet PO 81 mg DAILY PELON Administration Atorvastatin Calcium 40 mg 02/22/22 09:00 02/22/22 09:13 Atorvastatin 40 Mg Tablet PO 40 mg DAILY PELON Administration Hydroxychloroquine Sulfate 200 mg 02/21/22 18:00 02/22/22 10:32 Hydroxychloroquine 200 Mg Tablet PO 200 mg BID PELON Administration Non-Formulary Medication 20 mg 02/22/22 06:00 02/22/22 05:27 Leflunomide PO Not Given QAM PELON Tamsulosin HCl 0.8 mg 02/21/22 21:00 02/21/22 21:34 Tamsulosin 0.4 Mg Capsule PO 0.8 mg BEDTIME PELON Administration PFSH Acute PFSH: Medical History (Updated 02/22/22 @ 20:31 by Addie Alexandre MD) Acute lower GI hemorrhage BPH loc w urin obs/LUTS Chronic kidney disease Identified September 2020 although had been on Bactrim prior to this, I do not have baseline laboratory studies otherwise. Renal ultrasound at the time demonstrated numerous bilateral cysts and complex cysts. Chronic steroid use Diabetes A1c 09/2020 6.3 DJD (degenerative joint disease) Elevated PSA Gout High risk medication use Immunization counseling Inflammatory arthritis Kidney lesion Left inguinal hernia Left knee pain Renal cyst Right renal mass Rotator cuff tear arthropathy of right shoulder Septic arthritis Septic olecranon bursitis of left elbow (~09/2020) Seronegative rheumatoid arthritis affecting lower leg Surgical History H/O eye surgery H/O total hip arthroplasty Bilateral H/O vasectomy History of elbow surgery History of knee surgery Family History Family/Other CAD (coronary artery disease) Cancer Lung Stroke Mother , AT AGE 77 Parkinson disease Father , IN HIS 80'S Hepatitis C Other Hypertension Denies family history of Rheumatoid arthritis Diabetes Lupus Hyperlipidemia Chronic kidney disease (CKD) Family history of premature coronary artery disease Social History Smoking and tobacco status: never smoked Alcohol intake: never Marital status: Current occupational status: retired History of recent travel: No Vitals/I&O/Wt Last Vital Signs Temp 98.0 F 02/22/22 08:00 Pulse 51 L 02/22/22 08:00 Resp 14 02/22/22 08:00 BP 148/69 02/22/22 08:00 Pulse Ox 95 02/22/22 08:00 O2 Del Method 02/21/22 21:03 O2 Flow Rate 3 02/22/22 08:00 02/21/22 02/22/22 02/22/22 22:59 06:59 14:59 Intake Total 1240 / 2240 Output Total 400 / 400 Balance 1240 / 2240 -400 / 1840 Weight last 48 hrs Weight 206 lb 9.6 oz Weight 175 lb Physical Exam Narrative: GENERAL: Averagely built and averagely nourished in no acute distress HEENT: Extraocular movement intact. No pallor or icterus. NECK: central trachea, No JVD, No carotid bruit. CARDIOVASCULAR SYSTEM: S1-S2 regular. No S3 or S4 present. No murmur rubs or gallops. RESPIRATORY SYSTEM: Chest clear to auscultation. No wheezes rhonchi or rubs heard. No use of accessory muscles. ABDOMEN: Soft, nontender and nondistended. Normal bowel sounds present. EXTREMITIES: No cyanosis or edema. No signs of chronic venous insufficiency. 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 No focal neurological deficits. SKIN: Normal turgor and temperature. PSYCH: Normal insight and judgment. Data 02/22/22 04:48 02/22/22 04:48 Micro: Microbiology 02/21/22 15:45 Blood Culture - Preliminary Blood SPECIMEN COLLECTED 02/21/22 15:31 Blood Culture - Preliminary Blood SPECIMEN COLLECTED A&P Assessment and plan (1) NSTEMI (non-ST elevated myocardial infarction): Continue ASA, statin and lovenox -load with brilinta -Risks and benefits were discussed with the patients. Possible complications including risk of heart attack stroke and , coronary perforation, arrhythmia, cardiac tamponade in urgent CABG were discussed with the patient as well. Plan is to proceed for the procedure at the earliest. -No beta steve d/t bradycardia (2) Diverticulosis large intestine w/o perforation or abscess w/bleeding: (3) Seronegative rheumatoid arthritis affecting lower leg: (4) Gout: Qualifiers: Gout site: unspecified site Gout etiology: unspecified cause Chronicity: unspecified Qualified Code(s): M10.9 - Gout, unspecified (5) Cholelithiasis: Plan Bradycardia Thank you allowing me to participate in patient's care. Please feel free to call with questions or concerns. Consult Attestations Time Spent in Patient Care: Greater than 35 minutes Coding Level of Care Code Acute Continuity Tester for [facility] Fwd Diagnoses NSTEMI (non-ST elevated myocardial infarction) I21.4 Diverticulosis large intestine w/o perforation or abscess w/bleeding K57.31 Seronegative rheumatoid arthritis affecting lower leg M06.00 Gout M10.9 Gout site: unspecified site Gout etiology: unspecified cause Chronicity: unspecified Cholelithiasis K80.20
--- NOTE | 2022-02-22 11:35 | P.PN_ITS ---
Subjective Subjective: Patient was seen and examined this morning, denied any chest pain, shortness of breath, no seizure-like episode overnight,Has been afebrile overnight. His other vitals and labs have been reviewed. Medications: Medication Review Details: Generic Name Dose Route Start Last Admin Trade Name Quintin PRN Reason Stop Dose Admin Allopurinol 300 mg 02/22/22 06:00 02/22/22 05:23 Allopurinol 300 Mg Tablet PO 300 mg QAM PELON Administration Aspirin 81 mg 02/22/22 09:00 02/22/22 09:13 Aspirin 81 Mg Ec Tablet PO 81 mg DAILY PELON Administration Atorvastatin Calci um 40 mg 02/22/22 09:00 02/22/22 09:13 Atorvastatin 40 Mg Tablet PO 40 mg DAILY PELON Administration Hydroxychloroquine Sulfate 200 mg 02/21/22 18:00 02/22/22 10:32 Hydroxychloroqui ne 200 Mg Tablet PO 200 mg BID PELON Administration Non-Formulary Medi cation 20 mg 02/22/22 06:00 02/22/22 05:27 Leflunomide PO Not Given QAM PELON Tamsulosin HCl 0.8 mg 02/21/22 21:00 02/21/22 21:34 Tamsulosin 0.4 M g Capsule PO 0.8 mg BEDTIME PELON Administration Vitals/I&O/Wt Last Vital Signs Temp 98.0 F 02/22/22 08:00 Pulse 51 L 02/22/22 08:00 Resp 14 02/22/22 08:00 BP 148/69 02/22/22 08:00 Pulse Ox 95 02/22/22 08:00 O2 Del Method 02/21/22 21:03 O2 Flow Rate 3 02/22/22 08:00 02/21/22 02/22/22 02/22/22 22:59 06:59 14:59 Intake Total 1240 / 2240 Output Total 400 / 400 Balance 1240 / 2240 -400 / 1840 Weight last 48 hrs Weight 93.712 kg Weight 79.379 kg Physical Exam Const: COMMON NORMALS: patient oriented x3 Resp: COMMON NORMALS: normal respiratory effort and clear to auscultation bilaterally AUSCULTATION: clear to auscultation bilaterally Cardio: COMMON NORMALS: regular rate, regular rhythm, S1 normal heart sound present, S2 normal heart sound present, No gallops present (Cardio), No murmurs present (Cardio), No rub (Cardio) and Peripheral pulses 2+ throughout RATE: regular rate RHYTHM: regular rhythm HEART SOUNDS: S1 normal heart sound present and S2 normal heart sound present PERIPHERAL PULSES: Peripheral pulses 2+ throughout GI: COMMON NORMALS: Normal to inspection, nondistended, normoactive bowel sounds present, Soft to palpation, non-tender, No hepatosplenomegaly present and no masses AUSCULTATION: Yes normoactive bowel sounds PALPATION: Yes Soft to palpation and Yes No hepatosplenomegaly present RECTAL EXAM: Yes deferred Extremity: COMMON NORMALS: no clubbing, cyanosis or edema and no pedal edema Neuro: COMMON NORMALS: patient oriented x3 Data 02/22/22 04:48 02/22/22 04:48 Micro: Microbiology 02/21/22 15:45 Blood Culture - Preliminary Blood SPECIMEN COLLECTED 02/21/22 15:31 Blood Culture - Preliminary Blood SPECIMEN COLLECTED A&P Assessment and plan (1) NSTEMI (non-ST elevated myocardial infarction): (2) Acute respiratory alkalosis: (3) Seizure: (4) Seronegative rheumatoid arthritis affecting lower leg: (5) Gout: (6) Elevated lactic acid level: (7) Hypokalemia: (8) Cholelithiasis: Plan 71 year old male with past medical history of seronegative RA, gout, was exercising on treadmill today, when what appears to be possible seizure-like episode, according to patient's she heard him making grunting snorting noises. When she turned around to look at him she found him unresponsive. The episode lasted for few minutes, also noticed involuntary urination, patient was confused for some time, after the episode.She denied any jerking movements. Assessment: NSTEMI Possible seizure Acute respiratory alkalosis Elevated lactic acid Hypokalemia Gout Fever H/O seronegative RA Cholelithiasis Plan: Troponin trend with markedly significant delta 2D echo Influenza negative COVID-negative Seizure precaution Aspiration precaution Follow blood culture Follow repeat lactic acid: 1.2 Follow a.m. prolactin: 0.11 Prolactin:8 Follow CPK: 110 For now we will keep him on ACS protocol (aspirin statin, therapeutic anticoagulant) anticoagulation Possible stress test Possible cardiology consult CT and x-ray chest has not shown any signs suggestive of aspiration, for now we will keep patient off antibiotics and monitor. If he continues to spike then will have to cover him with antibiotics. CODE STATUS: Full code DVT prophylaxis: Not needed on therapeutic anticoagulation Attestations Medical Necessity Statement*: Patient needs to be in hospital for management of NSTEMI. Coding Level of Care Code Acute Pantograph Setter for [facility] Fwd Exam Detailed Diagnoses NSTEMI (non-ST elevated myocardial infarction) I21.4 Acute respiratory alkalosis E87.3 Seizure R56.9 Seronegative rheumatoid arthritis affecting lower leg M06.00 Gout M10.9 Elevated lactic acid level R79.89 Hypokalemia E87.6 Cholelithiasis K80.20
[2022-02-22] MEDS: ticagrelor 90 mg Tablet 180 MG PO (14:33)
[2022-02-22] MEDS: tamsulosin 0.4 mg Capsule 0.8 MG PO (22:22)
[2022-02-23] VITALS (10 sets, daily range): BP systolic 125–168; BP diastolic 71–84; PULSE 38–68; RESP 12–19; TEMP 36.6–37.1; O2SAT 93–98
[2022-02-23] MEDS: allopurinol 300 mg Tablet PO (05:12)
[2022-02-23] MEDS: enoxaparin 80 mg/0.8 mL Syringe SUBCUT ×2 (05:12→19:15)
[2022-02-23 05:36] LABS: Basophils # 0.1 10^3/uL (0.0-0.1); Basophils % 1.9 %; Eosinophils # 0.3 10^3/uL (0.0-0.8); Eosinophils % 5.3 %; Hematocrit 41.5 % (42.0-52.0); Hemoglobin 13.3 g/dL (11.7-16.6); Lymphocytes # 1.4 10^3/uL (0.8-4.8); Lymphocytes % 22.3 %; Mean Corpuscular Hemoglobin 27.9 pg (28.0-34.0); Mean Corpuscular Volume 87.2 fl (80-94); Mean Platelet Volume 10.9 fL (7.4-10.4); Monocytes # 0.7 10^3/uL (0.2-0.9); Monocytes % 11.1 %; Neutrophils # 3.69 10^3/uL (1.8-7.7); Neutrophils % 59.1 %; Nucleated Red Blood Cells % 0 %; Platelet Count 267 10^3/cmm (130-400); Red Blood Count 4.76 10^6/uL (4.1-5.3); Red Cell Distribution Width 14.2 % (12.1-15.1); White Blood Count 6.2 10^3/uL (4.0-10.0)
[2022-02-23 05:57] LABS: Alanine Aminotransferase 15 U/L (0-41); Albumin Level 3.8 g/dL (3.5-5.2); Alkaline Phosphatase 102 U/L (40-130); Aspartate Amino Transferase 21 U/L (0-40); Blood Urea Nitrogen 14 mg/dL (8-23); Calcium 9.4 mg/dL (8.5-10.5); Carbon Dioxide 24 mmol/L (22-29); Chloride 108 mmol/L (98-107); Globulin 2.4 g/dL (1.3-4.6); Glucose 107 mg/dL (65-115); Osmolality Calculated 293 mOsm/kg (285-295); Sodium 141 mmol/L (136-145); Total Bilirubin 0.4 mg/dL (0.15-1.2); Total Protein 6.2 g/dL (6.6-8.7)
--- NOTE | 2022-02-23 07:49 | W.PM.OPSUD ---
Surgery/Procedure H&P Update DATE OF PROCEDURE: February 23, 2022 DATE H&P PERFORMED: 02/22/22 H&P UPDATE INFORMATION: I have reviewed H&P completed within last 30 days, I have examined patient prior to procedure and No changes to prior documentation PREOP DIAGNOSIS: NSTEMI PRIMARY INDICATION FOR PROCEDURE: NSTEMI PLANNED PROCEDURE: Operation Date: 02/23/22 12:50 Proposed Procedures p Cardiac Catheterization(Left) - Addie Alexandre MD PATIENT REASSESSED PRIOR TO SEDATION, WITH NO CHANGE NOTED: Yes PHYSICAL EXAM: alert, oriented x 3, clear to auscultation bilaterally and regular rate & rhythm AIRWAY EVAL/ANESTHESIA PLAN: normal airway, ASA III, Monitored Anesthesia, Local Anesthesia, Risks, benefits & alternatives of sedation and/or procedure discussed and Patient agrees to continue as planned
--- NOTE | 2022-02-23 08:13 | PC.NURSE ---
Patient shaved his groin area and pulses were marked per cardiac catheterization protocol.
[2022-02-23] MEDS: atorvastatin 40 mg Tablet PO (10:04)
[2022-02-23] MEDS: aspirin 81 mg EC Tablet PO (10:04)
[2022-02-23] MEDS: ticagrelor 90 mg Tablet PO ×2 (10:05→19:15)
--- NOTE | 2022-02-23 10:21 | P.PN_ITS ---
Subjective Subjective: He underwent LHC today. s/p LHC and stents to LAD and PDA. Medications: Reviewed: Yes Vitals/I&O/Wt Last Vital Signs Temp 98 F 02/23/22 04:00 Pulse 40 L 02/23/22 04:05 Resp 16 02/23/22 04:00 BP 153/76 02/23/22 04:00 Pulse Ox 98 02/23/22 04:00 O2 Del Method 02/23/22 04:00 O2 Flow Rate 3 02/22/22 08:00 02/22/22 02/23/22 02/23/22 22:59 06:59 14:59 Intake Total 360 / 840 120 / 960 360 / 360 Balance 360 / 840 120 / 960 360 / 360 Weight last 48 hrs Weight 206 lb 9.6 oz Weight 175 lb Physical Exam Narrative: GENERAL: Averagely built and averagely nourished in no acute distress HEENT: Extraocular movement intact. No pallor or icterus. NECK: central trachea, No JVD, No carotid bruit. CARDIOVASCULAR SYSTEM: S1-S2 regular. No S3 or S4 present. No murmur rubs or gallops. RESPIRATORY SYSTEM: Chest clear to auscultation. No wheezes rhonchi or rubs heard. No use of accessory muscles. ABDOMEN: Soft, nontender and nondistended. Normal bowel sounds present. EXTREMITIES: No cyanosis or edema. No signs of chronic venous insufficiency. SAFETY AND SECURITY MANAGER: Patient is alert oriented ?3. No focal neurological deficits. SKIN: Normal turgor and temperature. PSYCH: Normal insight and judgment. Const: COMMON NORMALS: alert Resp: COMMON NORMALS: clear to auscultation bilaterally AUSCULTATION: clear to auscultation bilaterally Neuro: SENSORIUM/ORIENTATION: Yes alert Data 02/23/22 04:43 02/23/22 04:43 Micro: Microbiology 02/21/22 15:45 Blood Culture - Preliminary Blood NEGATIVE TO DATE 02/21/22 15:31 Blood Culture - Preliminary Blood NEGATIVE TO DATE A&P Assessment and plan (1) Syncope and collapse: Possibly 2/2 arrhythmic episode that resolved spontaneously prior to EMS arrival (2) NSTEMI (non-ST elevated myocardial infarction): Continue ASA, statin and lovenox -load with brilinta -Risks and benefits were discussed with the patients. Possible complications including risk of heart attack stroke and , coronary perforation, arrhythmia, cardiac tamponade in urgent CABG were discussed with the patient as well. Plan is to proceed for the procedure at the earliest. -No beta steve d/t bradycardia -He underwent LHC today. s/p LHC and stents to LAD and PDA. (3) Diverticulosis large intestine w/o perforation or abscess w/bleeding: (4) Seronegative rheumatoid arthritis affecting lower leg: (5) Gout: Qualifiers: Chronicity: unspecified Gout etiology: unspecified cause Gout site: unspecified site Qualified Code(s): M10.9 - Gout, unspecified (6) Cholelithiasis: Plan Bradycardia Thank you allowing me to participate in patient's care. Please feel free to call with questions or concerns. Attestations Medical Necessity Statement*: possibly discharge tomorrow. Coding Level of Care Code Acute Machine Tool Operator for [facility] Fwd Exam Expanded Problem Focused Diagnoses Syncope and collapse R55 NSTEMI (non-ST elevated myocardial infarction) I21.4 Diverticulosis large intestine w/o perforation or abscess w/bleeding K57.31 Seronegative rheumatoid arthritis affecting lower leg M06.00 Gout M10.9 Chronicity: unspecified Gout etiology: unspecified cause Gout site: unspecified site Cholelithiasis K80.20
--- NOTE | 2022-02-23 11:43 | P.PN_ITS ---
Subjective Subjective: Patient was seen and examined this morning, underwent cardiac cath today, PCI was done. Medications: Medication Review Details: Generic Name Dose Route Start Last Admin Trade Name Quintin PRN Reason Stop Dose Admin Allopurinol 300 mg 02/22/22 06:00 02/23/22 05:12 Allopurinol 300 Mg Tablet PO 300 mg QAM PELON Administration Aspirin 81 mg 02/22/22 09:00 02/23/22 10:04 Aspirin 81 Mg Ec Tablet PO 81 mg DAILY PELON Administration Atorvastatin Calci um 40 mg 02/22/22 09:00 02/23/22 10:04 Atorvastatin 40 Mg Tablet PO 40 mg DAILY PELON Administration Enoxaparin Sodium 80 mg 02/22/22 17:00 02/23/22 05:12 Enoxaparin 80 Mg /0.8 Ml Syringe SUBCUT 80 mg Q12H PELON Administration Hydroxychloroquine Sulfate 200 mg 02/21/22 18:00 02/22/22 17:17 Hydroxychloroqui ne 200 Mg Tablet PO 200 mg BID PELON Administration Non-Formulary Medi cation 20 mg 02/22/22 06:00 02/22/22 05:27 Leflunomide PO Not Given QAM PELON Tamsulosin HCl 0.8 mg 02/21/22 21:00 02/22/22 22:22 Tamsulosin 0.4 M g Capsule PO 0.8 mg BEDTIME PELON Administration Ticagrelor 90 mg 02/23/22 09:00 02/23/22 10:05 Ticagrelor 90 Mg Tablet PO 90 mg BID PELON Administration Vitals/I&O/Wt Last Vital Signs Temp 98 F 02/23/22 04:00 Pulse 38 L 02/23/22 11:36 Resp 12 02/23/22 11:36 BP 153/76 02/23/22 04:00 Pulse Ox 94 02/23/22 11:36 O2 Del Method 02/23/22 11:36 O2 Flow Rate 3 02/22/22 08:00 02/22/22 02/23/22 02/23/22 22:59 06:59 14:59 Intake Total 360 / 840 120 / 960 360 / 360 Balance 360 / 840 120 / 960 360 / 360 Weight last 48 hrs Weight 93.712 kg Weight 79.379 kg Physical Exam Const: COMMON NORMALS: patient oriented x3 Resp: COMMON NORMALS: normal respiratory effort and clear to auscultation bilaterally AUSCULTATION: clear to auscultation bilaterally Cardio: COMMON NORMALS: regular rate, regular rhythm, S1 normal heart sound present, S2 normal heart sound present, No gallops present (Cardio), No murmurs present (Cardio), No rub (Cardio) and Peripheral pulses 2+ throughout RATE: regular rate RHYTHM: regular rhythm HEART SOUNDS: S1 normal heart sound present and S2 normal heart sound present PERIPHERAL PULSES: Peripheral pulses 2+ throughout GI: COMMON NORMALS: Normal to inspection, nondistended, normoactive bowel sounds present, Soft to palpation, non-tender, No hepatosplenomegaly present and no masses AUSCULTATION: Yes normoactive bowel sounds PALPATION: Yes Soft to palpation and Yes No hepatosplenomegaly present RECTAL EXAM: Yes deferred Extremity: COMMON NORMALS: no clubbing, cyanosis or edema and no pedal edema Neuro: COMMON NORMALS: patient oriented x3 Data 02/23/22 04:43 02/23/22 04:43 Micro: Microbiology 02/21/22 15:45 Blood Culture - Preliminary Blood NEGATIVE TO DATE 02/21/22 15:31 Blood Culture - Preliminary Blood NEGATIVE TO DATE A&P Assessment and plan (1) NSTEMI (non-ST elevated myocardial infarction): (2) Acute respiratory alkalosis: (3) Seizure: (4) Seronegative rheumatoid arthritis affecting lower leg: (5) Gout: (6) Elevated lactic acid level: (7) Hypokalemia: (8) Cholelithiasis: Plan 71 year old male with past medical history of seronegative RA, gout, was exercising on treadmill today, when what appears to be possible seizure-like episode, according to patient's she heard him making grunting snorting noises. When she turned around to look at him she found him unresponsive. The episode lasted for few minutes, also noticed involuntary urination, patient was confused for some time, after the episode.She denied any jerking movements. Assessment: NSTEMI Possible seizure Acute respiratory alkalosis Elevated lactic acid Hypokalemia Gout Fever H/O seronegative RA Cholelithiasis Plan: Troponin trend with markedly significant delta 2D echo: Normal LV size and systolic function, LVEF of 55%, mild hypokinesis of mid to apical anterolateral and apical septal [place]. Normal diastolic function. Pulmonary artery pressure estimated at 21 mmHg. Influenza negative COVID-negative Seizure precaution Aspiration precaution Blood culture: Negative Follow up repeat lactic acid: 1.2 Procalcitonin: 0.11 Prolactin:8 Follow CPK: 110 For now we will keep him on ACS protocol (aspirin statin, Brilinta, therapeutic anticoagulant) Cardiology on board CT and x-ray chest has not shown any signs suggestive of aspiration, for now we will keep patient off antibiotics and monitor. If he continues to spike then will have to cover him with antibiotics. CODE STATUS: Full code DVT prophylaxis: Not needed on therapeutic anticoagulation Attestations Medical Necessity Statement*: Patient is to be in hospital for management of NSTEMI. Coding Level of Care Code Acute Federal Judicial Law Clerk for [facility] Mitch Diagnoses NSTEMI (non-ST elevated myocardial infarction) I21.4 Acute respiratory alkalosis E87.3 Seizure R56.9 Seronegative rheumatoid arthritis affecting lower leg M06.00 Gout M10.9 Elevated lactic acid level R79.89 Hypokalemia E87.6 Cholelithiasis K80.20
[2022-02-23] MEDS: hydroxychloroquine 200 mg Tablet PO ×2 (11:45→19:15)
--- NOTE | 2022-02-23 13:47 | XACV_ITS ---
Exam Room: [facility] Ht: 173 cm Wt: 93 kg BSA: 2.15 m2 Gender: Male : 1950 Exam Priority: Routine Procedure(s): Procedure Description: Diagnostic procedure Procedure Description: PCI procedure Procedure Description: Left Heart Catheterization Procedure Description: Left ventriculography Procedure Description: Coronary IVUS Procedure Description: Drug Eluting Coronary Stent Procedure Description: PTCA Procedure Description: Coronary Angiography Diagnostic Cath Status: Elective Diagnostic Findings * Angiography shows a right coronary dominant system. * Normal calibre left main artery with no disease. Left main artery trifurcates into ramus, left anterior descending and circumflex arteries. * Small to medium calibre left anterior descending artery. Proximal LAD with 90% stenosis and mid LAD with long segment 70% stenosis. * Ramus artery is a small to medium calibre artery without any disease. * Normal calibre right coronary artery with 90% PDA stenosis. * Small calibre circumflex artery without any significant disease. * Case was discussed and images were reviewed with Dr. Harrington. He took over the case at this time. PCI Status: Urgent PCI Indication: NSTE - ACS Interventional Findings * Procedure detail: Negative left and artery with XB 3.0 guide catheter. IV heparin was administered to maintain ACT above 250 s. 0.014 run-through guidewire was used to cross LAD stenosis and was put in distal vessel. IVUS catheter was used to size the vessel. We predilated the stenosis with 2.5 x 25 mm semicompliant balloon. This was followed by placement of 2.75 x 30 mm resolute [place] drug-eluting stent in mid vessel. We then placed an overlapping stent and proximal vessel. This was 3.0 x 30 mm resolute [place] drug-eluting stent. Proximal part of the stent was postdilated with 3.25 x 8 mm noncompliant balloon. At this time we performed another IVUS run to confirm good apposition of stents. Final angiogram was performed that showed excellent stent expansion, no residual stenosis and SELINA-3 flow. Guidewire and guide catheter were removed. We then turned our attention to the PDA lesion. The JR4 guide catheter was used to engage the RCA. Run-through guidewire was used to cross the PDA lesion. It was predilated with 2.25 x 8 mm noncompliant balloon. We then placed 2.5 x 12 mm resolute Deanna drug-eluting stent. At this time final angiogram was performed that showed excellent stent expansion, no residual stenosis and SELINA-3 flow. Patient left the [employer] in a stable condition.. * Proximal Left Anterior Descendin% stenosis treated with a MDT R DEANNA 3.0X30 TAPAN, MDT NC EUPHORA RX [id number] BALLOON, and AB TREK 2.50X25 RX BALLOON. 0% residual stenosis, SELINA: 3 flow. * Mid Left Anterior Descendin% stenosis treated with a AB TREK 2.50X25 RX BALLOON, MDT R DEANNA 2.75X30 TAPAN, and MDT NC EUPHORA RX [id number] BALLOON. 0% residual stenosis, SELINA: 3 flow. * Posterior Descending Right: 90% stenosis treated with a AB TREK 2.25X8 RX BALLOON, and MDT R DEANNA 2.5X12 TAPAN. 0% residual stenosis, SELINA: 3 flow. Conclusions 1. Severe proximal to mid LAD stenosis s/p successful revascularization with TAPAN x2. Severe PDA stenosis s/p successful revascularization with TAPAN x1.. 2. Proximal Left Anterior Descending was treated with a Drug Eluting Stent, Balloon, and Balloon. 3. Mid Left Anterior Descending was treated with a Balloon, Drug Eluting Stent, and Balloon. 4. Posterior Descending Right was treated with a Balloon, and Drug Eluting Stent. Recommendations * Return to inpatient for close monitoring and routine cath care. * Brilinta and 81mg Aspirin x at least 12 months. * High intensity statin therapy. * Outpatient cardiology follow-up in 4 weeks. Interventional RX Recommendation: PCI w/o planned CABG Diagnostic RX Recommendation: PCI w/o planned CABG Anticoagulation: Heparin LV EDP: 12 mmHg Pressures Phase:Rest AO : 130 / 78 ( 104 ) @ 7:30:00 AM 173 / 73 ( 113 ) @ 7:39:00 AM 176 / 76 ( 114 ) @ 7:39:00 AM 165 / 70 ( 102 ) @ 7:55:00 AM 159 / 76 ( 109 ) @ 8:11:00 AM 159 / 69 ( 100 ) @ 8:14:00 AM 127 / 67 ( 90 ) @ 8:25:00 AM LV : 157 / -4 / 12 @ 7:38:00 AM 157 / -5 / 13 @ 7:39:00 AM Valves Phase:DefaultPhase AV : 0.0 @ 11:10:54 AM AV Mean Gradient: 0.0 @ 11:10:54 AM Clinical Evaluation EBL: 5mL-10mL Procedural Details Procedure Consent Obtained. Admit Source: In Patient. Pre-Procedure Time Out. Identified patient by full name and date of as verbalized by the patient/guarantor. Does the consent match the physician's order: Yes. Accurate & Complete Informed Consent: Yes. Inpatient/Outpatient History & Physical on Chart: Yes. If H&P is completed, is and addenduem needed: No; If yes, is the addendum complete: N/A. Visualize and Verify Site with Patient/Guarantor: Yes. Relevant Radiology Images available: N/A. The risks, benefits, and alternatives of sedation and/or procedure were discussed by physician. The patient agrees to continue. Procedure started. PERRLA. Strong, equal hand fountain clerk bilaterally. Lungs clear x 5 lobes. IV Site on Arrival: 20 gauge in the left forearm. IV Fluids: 0.9% NaCl at KVO. 0 mL infused prior to crime laboratory analyst. Pre Procedural Pulses: bilateral radial was 2+. Pre Procedural Pulses: bilateral dorsalis pedis was Doppled. Oxygen started at 2liters/min via nasal canula. right radial was prepped with chloroprep then draped in the usual sterile fashion. right groin was prepped with chloroprep then draped in the usual sterile fashion. Physician notified. Baseline sample Acquired. HR: 82 BPM. Physician arrived. [facility] Clinical Fraility Score: 2: Well. 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 Chest Pain Symptom Assessment: Typical Angina Symptoms. Cardiovascular Instability: No. Correct patient, site and procedure confirmed by cath team. Current diagnosis: Chest Pain. Physician scrubbed in. Immediate Pre-Procedure Time Out. Lidocaine 1% infiltrated to the right radial. Arterial access obtained. A 5 moldovan TIG catheter in over wire. Multiple views taken of left coronary artery. Catheter redirected to the RCA. Multiple views taken of right coronary artery. Dr Harrington called for consult. EDP Sample taken: LV 157/-5,12; HR: 52 BPM; SpO2: 94%. Pullback taken: LV 157/-6,13; AO 173/73(113); Mean: 0mmHg, Peak to Peak: 0mmHg, SEP: 7sec/min; HR: 69 BPM; SpO2: 97%. Catheter removed over the standard wire. Physician review of cine films. Physician arrived. Sheath flushed to maintain patency. Dr. Harrington scrubbed in to perform intervention. 6 moldovan XB 3.5 guide catheter was inserted over the wire. Guide catheter out over the wire. Baseline sample Acquired. HR: 46 BPM. 6 moldovan XB 3 guide catheter was inserted over the wire. AP Pads placed on patient. Runthrough guidewire was advanced through the guide catheter to lesion in the mid LAD. Inflation number : 1 A AB TREK 2.50X25 RX BALLOON was prepped and advanced across the Prox LAD , then inflated to 10 KWAME for 0:19 seconds. Inflation number: 2 The AB TREK 2.50X25 RX BALLOON was reinflated across the Prox LAD, to 10 KWAME for 0:14 seconds. Inflation number: 3 The AB TREK 2.50X25 RX BALLOON was reinflated across the Prox LAD, to 12 KWAME for 0:14 seconds. Results checked. Balloon out. IVUS catheter in over wire. IVUS measurments obtained. IVUS catherter out over wire. Intact stent out unable to cross. Inflation number: 1 The AB TREK 2.50X25 RX BALLOON was reinflated across the Mid LAD, to 12 KWAME for 0:17 seconds. Balloon out over the wire. Inflation Number : 2 A MDT R DEANNA 2.75X30 TAPAN -Lot Number# [id number] exp date 02/28/2024 was prepped and advanced across the Mid LAD. The stent was deployed at 12 KWAME for 0:15 seconds. Inflation Number : 3 A MDT R DEANNA 3.0X30 TAPAN -Lot Number# [id number] exp date 05/15/2024 was prepped and advanced across the Prox LAD. The stent was deployed at 12 KWAME for 0:16 seconds. Stent balloon out over wire. IVUS catether in over wire. IVUS measuments obatined of LAD. IVUS catheter out over the wire. Inflation number : 3 A MDT NC EUPHORA RX [id number] BALLOON was prepped and advanced across the Mid LAD , then inflated to 6 KWAME for 0:07 seconds. Inflation number: 4 The MDT NC EUPHORA RX [id number] BALLOON was reinflated across the Mid LAD, to 10 KWAME for 0:16 seconds. Inflation number: 5 The MDT NC EUPHORA RX 3.19G90TQ BALLOON was reinflated across the Mid LAD, to 12 KWAME for 0:13 seconds. Inflation number: 2 The MDT NC EUPHORA RX [id number] BALLOON was reinflated across the Prox LAD, to 12 KWAME for 0:09 seconds. Inflation number: 3 The MDT NC EUPHORA RX 3.77R92FR BALLOON was reinflated across the Prox LAD, to 12 KWAME for 0:08 seconds. Balloon out. Results checked. Guidewire out over wire. 6 moldovan JR 4 guide catheter was inserted over the wire. INVENTORY: Marco Vasco Omniwire Pressure guide wire. Runthrough guidewire was advanced through the guide catheter to lesion in the PDA. Inflation number : 1 A AB TREK 2.25X8 RX BALLOON was prepped and advanced across the R PDA , then inflated to 8 KWAME for 0:07 seconds. Inflation number: 2 The AB TREK 2.25X8 RX BALLOON was reinflated across the R PDA, to 8 KWAME for 0:10 seconds. Inflation number: 3 The AB TREK 2.25X8 RX BALLOON was reinflated across the R PDA, to 0 KWAME for 0:12 seconds. Inflation number: 4 The AB TREK 2.25X8 RX BALLOON was reinflated across the R PDA, to 8 KWAME for 0:00 seconds. Inflation number: 5 The AB TREK 2.25X8 RX BALLOON was reinflated across the R PDA, to 12 KWAME for 0:21 seconds. Balloon out. Inflation Number : 6 A BOB R DEANNA 2.5X12 TAPAN -Lot Number#[id number] exp 01/23/2024 was prepped and advanced across the R PDA. The stent was deployed at 12 KWAME for 0:16 seconds. Stent balloon out over wire. Results checked. Guide wire out. Guide catheter out over the exchange wire. A TR Band was successful obtaining hemostatsis at the Right Radial artery insertion site. PERRLA. Strong, equal hand fountain clerk bilaterally. No VTE prophylaxis required. Medication's Wasted: Lidocaine 1% = 3 mL. Medication's Wasted: Heparin = 1000 units. Medication's Wasted: Nitro = 49.6 mg. Medication's Wasted: Other = 50 fentanyl mg. Total IV fluids: 50 mL. PCI Indication: New Onset Angina. Complications: none. Estimated blood loss: 5mL-10mL. Responsiveness - Normal response to verbal stimuli; alert and oriented, PERRLA. Airway - Unaffected, no intervention required; spontaneous ventilation. Circulation: W/N/L, pulses unchanged. Nausea/Vomiting: No. Procedure completed. Patient transferred by wheelchair to 1st floor. Vital chart was stopped. Access Site Site: Right Radial artery Sheath Size: 6 Fr Hemostasis Method: TR Band Hemostasis Success: Successful Procedure Medications Start: 7:16 AM Stop: 7:16 AM Medication: Benadryl Amount: 25 mg Route: I.V. Start: 7:20 AM Stop: 7:20 AM Medication: Versed 1 mg and Fentanyl 25 mcg Amount: 1 Route: I.V. Start: 7:26 AM Stop: 7:26 AM Medication: Nitrogylcerin Amount: 200 mcg Route: I.A. Start: 7:34 AM Stop: 7:34 AM Medication: Versed Amount: 1 mg Route: I.V. Start: 8:20 AM Stop: 8:20 AM Medication: Versed Amount: 1 mg Route: I.V. Start: 8:20 AM Stop: 8:20 AM Medication: Nitrogylcerin Amount: 200 mcg Route: I.C. Start: 8:23 AM Stop: 8:23 AM Medication: Versed 1 mg and Fentanyl 25 mcg Amount: 1 Route: I.V. Start: 8:36 AM Stop: 8:36 AM Medication: Aspirin Amount: 81 mg Route: P.O. Start: 8:36 AM Stop: 8:36 AM Medication: Brilinta Amount: 90 mg Route: P.O. I, the attending physician, have reviewed and verified all procedure medications. Yes, all medications given per verbal order History/Risk Factors Hypertension: No Dyslipidemia: No Peripheral Arterial Disease (PAD): No Myocardial Infarction (IN): No Obesity: No Tobacco Use: Never Prior Interventions PCI: No CABG: No Valve Surgery: No Report Signatures Interventional Workflow Finalized by Trey Harrington MD on 03/09/2022 02:37 PM Diagnostic Workflow Finalized by Addie Alexandre MD on 03/07/2022 06:19 AM
--- NOTE | 2022-02-23 19:28 | PC.NURSE ---
Report given to Erik Campos RN.
[2022-02-23] MEDS: tamsulosin 0.4 mg Capsule 0.8 MG PO (20:08)
[2022-02-24] VITALS (7 sets, daily range): BP systolic 141–146; BP diastolic 66–74; PULSE 37–102; RESP 14–17; TEMP 36.7–37.1; O2SAT 94–99
[2022-02-24 03:49] LABS: Basophils # 0.1 10^3/uL (0.0-0.1); Basophils % 1.6 %; Eosinophils # 0.3 10^3/uL (0.0-0.8); Eosinophils % 3.9 %; Hematocrit 40.7 % (42.0-52.0); Hemoglobin 13.3 g/dL (11.7-16.6); Lymphocytes # 1.2 10^3/uL (0.8-4.8); Lymphocytes % 13.4 %; Mean Corpuscular HGB Conc 32.7 g/dL (30.0-36.0); Mean Corpuscular Hemoglobin 28.5 pg (28.0-34.0); Mean Corpuscular Volume 87.3 fl (80-94); Mean Platelet Volume 10.7 fL (7.4-10.4); Monocytes % 11.5 %; Neutrophils # 5.95 10^3/uL (1.8-7.7); Nucleated Red Blood Cells % 0 %; Platelet Count 247 10^3/cmm (130-400); Red Blood Count 4.66 10^6/uL (4.1-5.3); Red Cell Distribution Width 14.5 % (12.1-15.1); White Blood Count 8.6 10^3/uL (4.0-10.0)
[2022-02-24 04:14] LABS: Alanine Aminotransferase 16 U/L (0-41); Albumin Level 3.5 g/dL (3.5-5.2); Alkaline Phosphatase 108 U/L (40-130); Anion Gap 10.7 (5-19); Aspartate Amino Transferase 23 U/L (0-40); Blood Urea Nitrogen 14 mg/dL (8-23); Calcium 9.4 mg/dL (8.5-10.5); Carbon Dioxide 24 mmol/L (22-29); Chloride 104 mmol/L (98-107); Globulin 2.6 g/dL (1.3-4.6); Glucose 121 mg/dL (65-115); Osmolality Calculated 282 mOsm/kg (285-295); Potassium 3.7 mmol/L (3.5-5.1); Sodium 135 mmol/L (136-145); Total Bilirubin 0.4 mg/dL (0.15-1.2); Total Protein 6.1 g/dL (6.6-8.7)
[2022-02-24] MEDS: enoxaparin 80 mg/0.8 mL Syringe SUBCUT (04:50)
[2022-02-24] MEDS: allopurinol 300 mg Tablet PO (05:51)
--- NOTE | 2022-02-24 08:29 | P.PN_ITS ---
Subjective Subjective: Patient underwent coronary angiogram yesterday that showed severe proximal to mid LAD long lesion treated with TAPAN x 2 and severe PDA lesion treated with TAPAN x1. No chest pain. He is stable Vitals/I&O/Wt Last Vital Signs Temp 98.1 F 02/24/22 07:06 Pulse 53 L 02/24/22 07:06 Resp 15 02/24/22 07:06 BP 142/71 02/24/22 07:06 Pulse Ox 96 02/24/22 07:06 O2 Del Method 02/24/22 03:37 O2 Flow Rate 3 02/22/22 08:00 02/23/22 02/24/22 02/24/22 22:59 06:59 14:59 Intake Total 240 / 960 120 / 120 Output Total 150 / 150 500 / 650 Balance 90 / 810 -500 / 310 120 / 120 Physical Exam Narrative: GENERAL: Patient is alert, awake and oriented x3. [] NECK: No jugular vein distension. [] HEENT: No cyanosis. No icterus. No pallor. [] HEART: Regular S1 and S2. No murmur, rub or gallop. [] LUNGS: Clear to auscultate bilaterally. [] ABDOMEN: Soft CENTRAL NERVOUS SYSTEM: Grossly nonfocal. [] EXTREMITIES: Lower extremities with 1+ edema bilaterally. Pulses palpable in the lower extremities, both dorsalis pedis and posterior tibial. [] Data 02/24/22 03:23 02/24/22 03:23 A&P Assessment and plan (1) Syncope and collapse: Likely secondary to cardiac arrhythmias (2) NSTEMI (non-ST elevated myocardial infarction): Patient is stable. Continue aspirin and Brilinta for atleast 1 year High intensity statin therapy We will hold off on rate controlling agents as has bradycardia Patient is stable to be discharged from cardiology standpoint. Please call with questions. (3) Diverticulosis large intestine w/o perforation or abscess w/bleeding: (4) Seronegative rheumatoid arthritis affecting lower leg: (5) Gout: Qualifiers: Gout site: unspecified site Gout etiology: unspecified cause Chronicity: unspecified Qualified Code(s): M10.9 - Gout, unspecified (6) Cholelithiasis: Plan Thank you allowing me to participate in patient's care. Please feel free to call with questions or concerns. Attestations Medical Necessity Statement*: Care expected to cross 2 midnights. Coding Level of Care Code Acute Farm General Manager for [facility]wd Diagnoses Syncope and collapse R55 NSTEMI (non-ST elevated myocardial infarction) I21.4 Diverticulosis large intestine w/o perforation or abscess w/bleeding K57.31 Seronegative rheumatoid arthritis affecting lower leg M06.00 Gout M10.9 Gout site: unspecified site Gout etiology: unspecified cause Chronicity: unspecified Cholelithiasis K80.20
[2022-02-24] MEDS: ticagrelor 90 mg Tablet PO (09:11)
[2022-02-24] MEDS: atorvastatin 40 mg Tablet PO (09:11)
[2022-02-24] MEDS: aspirin 81 mg EC Tablet PO (09:11)
[2022-02-24] MEDS: hydroxychloroquine 200 mg Tablet PO (09:11)
--- NOTE | 2022-02-24 10:13 | PC.SOCIAL ---
IMM update IMM updated with patient. Verbalized an understanding. Copy Pg 2 provided. Initialled, dated, timed, and placed in chart.
--- NOTE | 2022-02-24 10:35 | P.DS_ITS ---
Discharge Providers Date of Admission: 02/21/22 17:55 Date of Discharge: February 24, 2022 Attending Provider at Admission: Connor Lima MD Attending Provider at Discharge: Connor Lima MD Primary Care Provider: Carlos Jackson MD Diagnoses at Discharge Discharge Diagnosis (1) Syncope and collapse: Status: Acute (2) NSTEMI (non-ST elevated myocardial infarction): Status: Acute (3) Diverticulosis large intestine w/o perforation or abscess w/bleeding: Status: Acute (4) Seronegative rheumatoid arthritis affecting lower leg: Status: Acute (5) Gout: Status: Acute Qualifiers: Chronicity: unspecified Gout etiology: unspecified cause Gout site: unspecified site Qualified Code(s): M10.9 - Gout, unspecified (6) Cholelithiasis: Status: Acute Reason for Visit Reason for Visit: possible seizure Hospital Course Hospital Course 71 year old male with past medical history of seronegative RA, gout, was exercising on treadmill on the eventful day when he suddenly collapsed and lost his consciousness lasted transiently , further work up during the hospital stay revealed that he experienced NSTEMI and likely the collapse due to cardiac event.Patient underwent CAG with PCI to LAD and PDA.2D echo done during the hospital stay showed: Normal LV size and systolic function, LVEF of 55%,?mild hypokinesis of mid to apical anterolateral and apical septal [place]. Normal diastolic function. Pulmonary artery pressure estimated at 21 mmHg.CTA Chest : No pulmonary embolism, no aortic dissection , no infiltrates.?Mild aneurysmal dilatation of the ascending thoracic aorta measuring 3.[address] head without contrast: No acute intracranial pathology. Patient was started on ACS protocol during the hospital stay, he was discharged on Aspirin, statin, brilinta,was continued on his home medications.Patient responded well to above medical management and was discharged in stable condition to home. He will follow cardiology as outpatient. Physical Exam Const: COMMON NORMALS: patient oriented x3 Resp: COMMON NORMALS: normal respiratory effort and clear to auscultation bilaterally AUSCULTATION: clear to auscultation bilaterally Cardio: COMMON NORMALS: regular rate, regular rhythm, S1 normal heart sound present, S2 normal heart sound present, No gallops present (Cardio), No murmurs present (Cardio), No rub (Cardio) and Peripheral pulses 2+ throughout RATE: regular rate RHYTHM: regular rhythm HEART SOUNDS: S1 normal heart sound present and S2 normal heart sound present PERIPHERAL PULSES: Peripheral pulses 2+ throughout GI: COMMON NORMALS: Normal to inspection, nondistended, normoactive bowel sounds present, Soft to palpation, non-tender, No hepatosplenomegaly present and no masses AUSCULTATION: Yes normoactive bowel sounds PALPATION: Yes Soft to palpation and Yes No hepatosplenomegaly present RECTAL EXAM: Yes deferred Extremity: COMMON NORMALS: no clubbing, cyanosis or edema and no pedal edema Neuro: COMMON NORMALS: patient oriented x3 Discharge Data Studies Completed and Pending Completed Studies During Hospitalization Category Date Time Status CT head wo con* [id number] Stat Cat Scan 02/21/22 13:28 Completed CTA chest [CT angio chest PE protcl [id number]] Stat Cat Scan 02/21/22 14:12 Completed XR chest 1V portable [id number] Stat Exams 02/21/22 13:28 Completed US echo complete [CV. 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 Head CT 02/21/22 13:28 IMPRESSION: 1. No evidence of intracranial hemorrhage or mass effect. 2. Mild small vessel changes with mild parenchymal volume loss. 3. No acute intracranial findings. Chest CTA 02/21/22 14:12 IMPRESSION: 1. No evidence for pulmonary embolus. 2. No acute pulmonary finding. 3. Cholelithiasis. COMMENTS: Consistent with the [employer]'s Incidental Findings Committee white paper (J Am Noble Radiol 2018): Any incidental renal lesion less than 1 cm or classified as too small to characterize, or any incidental cystic renal lesion characterized as simple-appearing, is likely benign. No follow-up imaging is recommended for these lesions per consensus recommendations based on imaging criteria. Laboratory Results WBC 8.6 10^3/uL (4.0-10.0) 02/24/22 03:23 RBC 4.66 10^6/uL (4.1-5.3) 02/24/22 03:23 Hgb 13.3 g/dL (11.7-16.6) 02/24/22 03:23 Hct 40.7 % (42.0-52.0) L 02/24/22 03:23 MCV 87.3 fl (80-94) 02/24/22 03:23 MCH 28.5 pg (28.0-34.0) 02/24/22 03:23 MCHC 32.7 g/dL (30.0-36.0) 02/24/22 03: RDW 14.5 % (12.1-15.1) 02/24/22 03:23 Plt Count 247 10^3/cmm (130-400) 02/24/22 03:23 MPV 10.7 fL (7.4-10.4) H 02/24/22 03:23 Neut % (Auto) 69.0 % 02/24/22 03:23 Lymph % (Auto) 13.4 % 02/24/22 03:23 [place] % (Auto) 11.5 % 02/24/22 03:23 Eos % (Auto) 3.9 % 02/24/22 03:23 Baso % (Auto) 1.6 % 02/24/22 03:23 Neut # (Auto) 5.95 10^3/uL (1.8-7.7) 02/24/22 03:23 Lymph # (Auto) 1.2 10^3/uL (0.8-4.8) 02/24/22 03:23 [place] # (Auto) 1.0 10^3/uL (0.2-0.9) H 02/24/22 03:23 Eos # (Auto) 0.3 10^3/uL (0.0-0.8) 02/24/22 03:23 Baso # (Auto) 0.1 10^3/uL (0.0-0.1) 02/24/22 03:23 Nucleated RBC % (auto) 0 % 02/24/22 03: Nucleated RBCs # 0.0 /100WBC 02/24/22 03:23 Specimen Type Arterial 02/21/22 13:41 Sample Site Radial, left 02/21/22 13:41 ABG pH 7.63 (7.35-7.45) H* 02/21/22 13:41 ABG pCO2 17.1 mmHg (35-45) L* 02/21/22 13:41 ABG pO2 131.0 mmHg (80.0-100.0) H 02/21/22 13:41 ABG HCO3 17.7 mmol/L (22-26) L 02/21/22 13:41 ABG Base Excess -0.6 mmol/L (-2.0-2.0) 02/21/22 13:41 Mickey Test Pos 02/21/22 13:41 Hematocrit 43.9 % (42-52) 02/21/22 13:41 Hgb O2 Saturation 98.2 % (95-100) 02/21/22 13:41 Carboxyhemoglobin < 1.0 %THgb (0.4-20.1) 02/21/22 13:41 Methemoglobin 0.3 % (0.4-1.5) L 02/21/22 13:41 Total Hemoglobin 14.3 g/dL (14-18) 02/21/22 13:41 O2 Delivery Device Room air 02/21/22 13:41 FiO2 21.0 % 02/21/22 13:41 Chiropractic Doctor ID glc 02/21/22 13:41 Sodium 135 mmol/L (136-145) L 02/24/22 03:23 Potassium 3.7 mmol/L (3.5-5.1) 02/24/22 03:23 Chloride 104 mmol/L (98-107) 02/24/22 03:23 Carbon Dioxide 24 mmol/L (22-29) 02/24/22 03:23 Anion Gap 10.7 (5-19) 02/24/22 03:23 BUN 14 mg/dL (8-23) 02/24/22 03:23 Creatinine 1.2 mg/dL (0.7-1.2) 02/24/22 03:23 GFR Calculation Not Reportable 02/24/22 03:23 Glucose 121 mg/dL (65-115) H 02/24/22 03:23 Calculated Osmolality 282 mOsm/kg (285-295) L 02/24/22 03:23 Lactic Acid 1.2 mmol/L (0.5-2.2) 02/22/22 04:48 Lactate 4.8 mmol/L (0.5-2.2) H* 02/21/22 14:23 Calcium 9.4 mg/dL (8.5-10.5) 02/24/22 03:23 Magnesium 1.8 mg/dL (1.7-2.3) 02/22/22 04:48 Total Bilirubin 0.4 mg/dL (0.15-1.2) 02/24/22 03:23 AST 23 U/L (0-40) 02/24/22 03:23 ALT 16 U/L (0-41) 02/24/22 03:23 Alkaline Phosphatase 108 U/L (40-130) 02/24/22 03:23 Ammonia 30 umol/L (16-60) 02/21/22 13:37 Creatine Kinase 110 U/L (39-308) 02/22/22 04:48 Troponin T Baseline 25 ng/L (0-15) H 02/21/22 13:37 Troponin T 120 Minute 235.5 ng/L (0-15) H 02/21/22 15:31 Delta Troponin T 210.5 ABS# (0-10) H* 02/21/22 15:31 Troponin T Hi Sens 6Hr 491.1 ng/L (0-15) H 02/21/22 17:03 Troponin T Hi Sens 6Hr Delta 466.1 ng/L (0-12) H* 02/21/22 17:03 Total Protein 6.1 g/dL (6.6-8.7) L 02/24/22 03:23 Albumin 3.5 g/dL (3.5-5.2) 02/24/22 03:23 Globulin 2.6 g/dL (1.3-4.6) 02/24/22 03:23 Procalcitonin 0.11 ng/mL (0-0.5) 02/22/22 04:48 TSH 4.85 uIU/mL (0.27-4.20) H 02/21/22 13:37 Prolactin 8.60 ng/mL (4.0-15.2) 02/22/22 04:48 Urine Color Yellow (Yellow) 02/21/22 14:45 Urine Appearance Clear (CLEAR) 02/21/22 14:45 Urine pH 6.5 (5-7) 02/21/22 14:45 Ur Specific [place] 1.010 (1.005-1.030) 02/21/22 14:45 Urine Protein Neg (Negative) 02/21/22 14:45 Urine Glucose (UA) Norm (Normal) 02/21/22 14:45 Urine Ketones Negative (Negative) 02/21/22 14:45 Urine Blood Neg (Negative) 02/21/22 14:45 Urine Nitrate Negative (Negative) 02/21/22 14:45 Urine Bilirubin Neg (Negative) 02/21/22 14:45 Urine Urobilinogen Norm mg/dL (Negative) 02/21/22 14:45 Ur Leukocyte Esterase Negative (Negative) 02/21/22 14:45 Salicylates < 0.3 mg/dL (3-10) L 02/21/22 13:37 Urine Opiates Screen Negative ng/mL (Negative) 02/21/22 14:45 Acetaminophen < 5.0 ug/mL (10-30) L 02/21/22 13:37 Ur Barbiturates Screen Negative ng/mL (Negative) 02/21/22 14:45 Ur Phencyclidine Scrn Negative ng/mL (Negative) 02/21/22 14:45 Ur Amphetamines Screen Negative ng/mL (Negative) 02/21/22 14:45 U Benzodiazepines Scrn Negative ng/mL (Negative) 02/21/22 14:45 Urine Cocaine Screen Negative ng/mL (Negative) 02/21/22 14:45 U Marijuana (THC) Screen Negative ng/mL (Negative) 02/21/22 14:45 Ethyl Alcohol < 10 mg/dL (0-10) 02/21/22 13:37 Influenza Type A Ag negative (Negative) 02/21/22 13:50 Influenza Type B Ag negative (Negative) 02/21/22 13:50 SARS-CoV-2 Ag (Rapid) negative (Negative) 02/21/22 13:50 Vitals Last Vital Signs Temp 98.1 F 02/24/22 07:06 Pulse 53 L 02/24/22 07:06 Resp 15 02/24/22 07:06 BP 142/71 02/24/22 07:06 Pulse Ox 96 02/24/22 07:06 O2 Del Method 02/24/22 03:37 O2 Flow Rate 3 02/22/22 08:00 Discharge Plan Discharge Patient Disposition: Home Condition: Stable Prescriptions: New aspirin 81 mg Tablet,Delayed Release (Dr/Ec) 81 mg PO DAILY 30 Days Qty: 30 3RF atorvastatin 40 mg Tablet 40 mg PO DAILY 30 Days Qty: 30 3RF Brilinta 90 mg Tablet 90 mg PO BID 30 Days Qty: 60 3RF Nitrostat 0.4 mg tablet, sublingual 0.4 mg sublingual Q5M PRN (Reason: chest pain) Qty: 30 1RF Rx Instructions: do not exceed 3 doses per episode Continued allopurinol 300 mg tablet 300 mg PO QAM Nexium 20 mg capsule,delayed release(DR/EC) 20 mg PO BID hydroxychloroquine 200 mg tablet 200 mg PO BID Qty: 60 3RF leflunomide 20 mg tablet 20 mg PO QAM Qty: 90 0RF tamsulosin 0.4 mg capsule 0.8 mg PO BEDTIME chlorhexidine gluconate 0.12 % mouthwash See Rx Instructions .ROUTE .COMPLEX Rx Instructions: swish and spit 15ml po twice a day fexofenadine 180 mg Tablet 180 mg PO DAILY Discharge Orders: Discharge Order (Routine); Ordered 02/24/22 Ordered By: Connor Lima Referrals: Carlos Jackson MD [Primary Care Provider] - 1 week (follow-up with dr jackson in 1 week.call office for appointment:[phone]) Addie Alexandre MD [Physician] - 1 month (appointment with oscar gonzalez np in [facility] in 3-7 days.have bmp (blood work) drawn then.call [phone] to [facility] appointment) Discharge Diet: Cardiac Discharge Activity: Resume usual activity Patient Instructions: Aspirin (By mouth), Nitroglycerin, Rapid Release (By mouth) (NitroMist, Nitrolingual,..., Atorvastatin (By mouth) (Lipitor), Ticagrelor (By mouth) (Brilinta), Heart Attack (DC), Opioid Safety, Post Angiogram Home Care Instructions, Post Heart Attack Stoplight Discharge Attestations Time Spent in Discharge Care*: greater than 30 min Status at Discharge: Cognitive status at discharge: cognitively intact , Behavioral status at discharge: cooperative , Quality Metrics Clinical Quality Measures [ No reported AMI, CVA or VTE this stay] Coding Level of Care Code Acute Chg FW DC note Diagnoses Syncope and collapse R55 NSTEMI (non-ST elevated myocardial infarction) I21.4 Diverticulosis large intestine w/o perforation or abscess w/bleeding K57.31 Seronegative rheumatoid arthritis affecting lower leg M06.00 Gout M10.9 Chronicity: unspecified Gout etiology: unspecified cause Gout site: unspecified site Cholelithiasis K80.20
--- NOTE | 2022-02-24 11:54 | PC.NURSE ---
Discharge Note Patient discharged to home via ambulation accompanied by spouse. Discharge instructions reviewed with patient and/or member services representative. Mobile pharmacy medications and/or prescriptions provided. Belongings/home medications returned.
== END 2022-02-24 11:55 | disposition home or self-care (01) | DRG 247 ==
LOC: ER 16:59 → MEDSURG 17:55 → CSU 02-23 09:10
PROVIDERS: Internal Medicine; Internal Medicine Cardiovascular Disease; Admitting Provider Internal Medicine; Emergency Provider Emergency Medicine; PCP Family Medicine; Visit Provider Internal Medicine
DX: I21.4 Non-ST elevation (NSTEMI) myocardial infarction (principal); E87.3 Alkalosis; M06.0A Rheumatoid arthritis without rheumatoid factor, other specified site; M10.9 Gout, unspecified; N40.1 Benign prostatic hyperplasia with lower urinary tract symptoms; E11.22 Type 2 diabetes mellitus with diabetic chronic kidney disease; N18.9 Chronic kidney disease, unspecified; Z79.52 Long term (current) use of systemic steroids; Z96.643 Presence of artificial hip joint, bilateral; E87.6 Hypokalemia; K80.20 Calculus of gallbladder without cholecystitis without obstruction; K57.30 Diverticulosis of large intestine without perforation or abscess without bleeding; I25.10 Atherosclerotic heart disease of native coronary artery without angina pectoris
CPT/HCPCS: 36415; 36600; 70450; 71045; 71275; 80053; 80306; 80307; 81003; 82140; 82550; 82805; 83605; 83735; 84145; 84146; 84443; 84484; 85025; 87040; 87426; 87804; 92978; 93005; 93306; 93458; 96372; 96374; 99152; 99153; 99285; 99291; C1725; C1753; C1769; C1874; C1887; C1894; C9600; C9601; J0461; J1200; J1644; J1650; J2250; J2405; J3010; J3490; J7030; Q9967

== ENCOUNTER → 2022-03-06 10:30 | Outpatient (BNVA) | payer MEDICARE, OTHER, SELFPAY | PROVIDERS: PCP Family Medicine; Visit Provider Nurse Practitioner Family | DX: I25.10 Atherosclerotic heart disease of native coronary artery without angina pectoris (principal) | CPT/HCPCS: 36415; 80048; 99214 ==

== ENCOUNTER 2022-03-27 09:38 | Outpatient (RCR) | payer MEDICARE, OTHER, SELFPAY | END 2022-04-24 23:59 | disposition home or self-care (01) | LOC: CR 09:38 | PROVIDERS: Absent Provider Internal Medicine Cardiovascular Disease; PCP Family Medicine; Referring Provider Internal Medicine Cardiovascular Disease; Visit Provider Internal Medicine Cardiovascular Disease | DX: Z95.5 Presence of coronary angioplasty implant and graft (principal) | CPT/HCPCS: 93798 ==

== ENCOUNTER → 2022-05-10 12:04 | Outpatient (BNVA) | payer MEDICARE, OTHER, SELFPAY | PROVIDERS: PCP Family Medicine; Visit Provider Internal Medicine Cardiovascular Disease | DX: I25.10 Atherosclerotic heart disease of native coronary artery without angina pectoris (principal); Z79.899 Other long term (current) drug therapy; I12.9 Hypertensive chronic kidney disease with stage 1 through stage 4 chronic kidney disease, or unspecified chronic kidney disease; E11.22 Type 2 diabetes mellitus with diabetic chronic kidney disease; E11.65 Type 2 diabetes mellitus with hyperglycemia; N18.9 Chronic kidney disease, unspecified; Z79.84 Long term (current) use of oral hypoglycemic drugs; I25.2 Old myocardial infarction | CPT/HCPCS: 99214 ==

== ENCOUNTER → 2022-05-29 10:27 | Outpatient (BNVA) | payer MEDICARE, OTHER, SELFPAY | PROVIDERS: PCP Family Medicine; Visit Provider Internal Medicine Rheumatology | DX: M06.062 Rheumatoid arthritis without rheumatoid factor, left knee (principal); M17.11 Unilateral primary osteoarthritis, right knee; Z79.899 Other long term (current) drug therapy; Z79.52 Long term (current) use of systemic steroids; Z87.39 Personal history of other diseases of the musculoskeletal system and connective tissue; Z96.643 Presence of artificial hip joint, bilateral; M25.562 Pain in left knee; M25.561 Pain in right knee | CPT/HCPCS: 73562; 99214 ==

== ENCOUNTER → 2022-08-27 09:00 | Outpatient (BNVA) | payer MEDICARE, OTHER, SELFPAY | PROVIDERS: PCP Family Medicine; Visit Provider Internal Medicine Rheumatology | DX: M06.00 Rheumatoid arthritis without rheumatoid factor, unspecified site (principal); Z79.899 Other long term (current) drug therapy; Z71.85 Encounter for immunization safety counseling | CPT/HCPCS: 99214 ==

== ENCOUNTER 2022-10-06 21:20 | Emergency (ER) | payer MEDICARE, OTHER, SELFPAY ==
[2022-10-06 21:33] VITALS: BP 148/76; PULSE 89; RESP 22; TEMP 37.6; O2SAT 95; BMI 28.0
--- NOTE | 2022-10-06 22:56 | XRR_ITS ---
PROCEDURE INFORMATION: Exam: XR Chest Exam date and time: 10/06/2022 11:26 PM Age: 72 years old Clinical indication: Cough and fever; Prior surgery; Surgery date: 6+ months; Surgery type: Coronary stents; Patient HX: C/O cough with fever; Additional info: Fever cough TECHNIQUE: Imaging protocol: Radiologic exam of the chest. Views: 1 view. COMPARISON: CR XR chest 1V portable [id number] 02/21/2022 1:36 PM FINDINGS: Lungs: Minimal bibasilar atelectasis versus infiltrate. Pleural spaces: Unremarkable. No pleural effusion. No pneumothorax. Heart/Mediastinum: Cardiomegaly. Coronary artery atherosclerotic calcifications. Bones/joints: Unremarkable. XR/XR chest 1V portable [id number] IMPRESSION: 1. Cardiomegaly. 2. Coronary artery atherosclerotic calcifications. 3. Minimal bibasilar atelectasis versus infiltrate.
--- NOTE | 2022-10-06 23:37 | W.ED.FEVER ---
HPI - Fever General: Chief Complaint: Fever Stated Complaint: Fever Time Seen by Provider: 10/06/22 23:04 Source: patient History of Present Illness: A fever. He notes that he started with a cough sometime last week. He lost smell and taste sensation. He tested negative at home for COVID. Cough seemed to resolve. Fever has come back as of today at some point. He also has the urge to urinate, but does not seem to be able to much at all. He has not had this problem before significantly. He notes that his back muscles are sore, otherwise no abdominal pain. No other real symptoms currently. MD elicited complaint: fever Pertinent past history: immunosuppression Onset (ago): day(s) Context: other(s) with similar symptoms () Associated symptoms: Reports flank pain, chills and cough (now resolved); Deny abdominal pain, chest pain, confusion, diarrhea, headache(s), rash, rhinorrhea, short of breath, stiffness, sore throat or vomiting Review of Systems Const: Reports: fever(s), chills and body aches ENMT: Denies: throat pain Card: Denies: chest pain Resp: Reports: non-productive cough; Denies: dyspnea GI: Denies: abdominal pain, vomiting or diarrhea : Reports: flank pain Musc: Reports: back pain Skin/Breast: Denies: rash Neuro: Denies: headache(s) or confusion PFSH ED PFSH: Medical History Acute lower GI hemorrhage Acute respiratory alkalosis Alkalosis, metabolic Atherosclerosis of coronary artery BPH loc w urin obs/LUTS Cholelithiasis Chronic kidney disease Identified September 2020 although had been on Bactrim prior to this, I do not have baseline laboratory studies otherwise. Renal ultrasound at the time demonstrated numerous bilateral cysts and complex cysts. Chronic steroid use Diabetes A1c 09/2020 6.3 Diverticulosis large intestine w/o perforation or abscess w/bleeding DJD (degenerative joint disease) Elevated lactic acid level Elevated PSA Elevated troponin Essential hypertension Gout Gout High risk medication use Hypokalemia Immunization counseling Inflammatory arthritis Left inguinal hernia Left knee pain NSTEMI (non-ST elevated myocardial infarction) Renal cyst Right renal mass Rotator cuff tear arthropathy of right shoulder Seizure Septic arthritis Septic olecranon bursitis of left elbow (~09/2020) Seronegative rheumatoid arthritis Seronegative rheumatoid arthritis affecting lower leg Syncope and collapse Surgical History H/O eye surgery H/O total hip arthroplasty Bilateral H/O vasectomy History of elbow surgery History of knee surgery Presence of stent in LAD coronary artery Family History Family/Other CAD (coronary artery disease) Cancer Lung Stroke Mother , AT AGE 77 Parkinson disease Father , IN HIS 80'S Hepatitis C Other Hypertension Denies family history of Rheumatoid arthritis Diabetes Lupus Hyperlipidemia Chronic kidney disease (CKD) Family history of premature coronary artery disease Social History Smoking and tobacco status: never smoked Alcohol intake: never Substance/Drug Use: never Marital status: Current occupational status: retired Physical Exam Const: COMMON NORMALS: no acute distress GENERAL APPEARANCE: cooperative; not ill appearing and not frail appearing HENMT: COMMON NORMALS: normocephalic, atraumatic and Normal external nose present HEAD & SCALP: normocephalic and atraumatic FACE & SINUS: normal facial exam and face symmetric NOSE: Normal external nose present Eye: COMMON NORMALS: Equal, round and reactive pupils present and EOMs intact bilaterally PUPIL: Yes Equal, round and reactive pupils present Neck/C-Spine: GENERAL: Yes trachea midline Chest: CHEST: Yes Symmetrical chest wall rise Resp: COMMON NORMALS: normal respiratory effort, No retractions, No use of accessory muscles and clear to auscultation bilaterally AUSCULTATION: clear to auscultation bilaterally Cardio: COMMON NORMALS: regular rate and regular rhythm RATE: regular rate RHYTHM: regular rhythm GI: COMMON NORMALS: Normal to inspection, nondistended, normoactive bowel sounds present Extremity: COMMON NORMALS: no pedal edema Neuro: JASON COMA SCALE: document GCS findings Caroleen coma scale eye opening: Spontaneous Jason coma scale verbal response: Orientated Caroleen coma scale motor response: Obey commands Jason coma scale total score: 15 SENSORY EXAM: Yes extremities (intact) Psych: COMMON NORMALS: speech normal SPEECH: Yes normal speech Skin: COMMON NORMALS: no rashes or lesions noted GENERAL SKIN EXAM: no rashes or lesions noted Course Vital Signs: Vital signs: Vital Signs Temperature 99.2 F 10/07/22 01:28 Pulse Rate 100 10/07/22 01:28 Respiratory Rate 16 10/07/22 01:28 Blood Pressure 133/78 10/07/22 01:28 Pulse Oximetry 92 10/07/22 01:28 Oxygen Delivery Me thod Room Air 10/07/22 01:28 MDM - Fever Medical Decision Making 72-year-old gentleman with a fever. He has a loose history of immunocompromisation, although he does not appear to be on any immune modifying medications currently. He has a temperature. He is awake and alert. His white blood cell count is 18. His CRP is only 5.8. His lactic acid is 1.9. Chest x-ray shows bibasilar atelectasis. Urinalysis is nitrate positive with 2+ leukocyte esterase and 55-80 whites indicative of urinary tract infection. He is received IV fluid and IV Rocephin here. His temperature is down to 99.2. He wishes to go home. He is not vomiting. He has no abdominal or flank tenderness. He will be allowed home on cefdinir. Lab Data 10/06/22 23:51 10/06/22 23:51 Radiology Impressions Chest X-Ray 10/06/22 22:56 IMPRESSION: 1. Cardiomegaly. 2. Coronary artery atherosclerotic calcifications. 3. Minimal bibasilar atelectasis versus infiltrate. Laboratory Results WBC 18.4 10^3/uL (4.0-10.0) H 10/06/22 23:51 RBC 5.34 10^6/uL (4.1-5.3) H 10/06/22 23:51 Hgb 14.9 g/dL (11.7-16.6) 10/06/22 23:51 Hct 46.2 % (42.0-52.0) 10/06/22 23:51 MCV 86.5 fl (80-94) 10/06/22 23:51 MCH 27.9 pg (28.0-34.0) L 10/06/22 23:51 MCHC 32.3 g/dL (30.0-36.0) 10/06/22 23:51 RDW 15.1 % (12.1-15.1) 10/06/22 23:51 Plt Count 243 10^3/cmm (130-400) 10/06/22 23:51 MPV 10.4 fL (7.4-10.4) 10/06/22 23:51 Neut % (Auto) 89.8 % 10/06/22 23:51 Lymph % (Auto) 2.2 % 10/06/22 23:51 [place] % (Auto) 6.1 % 10/06/22 23:51 Eos % (Auto) 0.8 % 10/06/22 23:51 Baso % (Auto) 0.7 % 10/06/22 23:51 Neut # (Auto) 16.55 10^3/uL (1.8-7.7) H 10/06/22 23:51 Lymph # (Auto) 0.4 10^3/uL (0.8-4.8) L 10/06/22 23:51 [place] # (Auto) 1.1 10^3/uL (0.2-0.9) H 10/06/22 23:51 Eos # (Auto) 0.1 10^3/uL (0.0-0.8) 10/06/22 23:51 Baso # (Auto) 0.1 10^3/uL (0.0-0.1) 10/06/22 23:51 Nucleated RBC % (auto) 0 % 10/06/22 23:51 Nucleated RBCs # 0.0 /100WBC 10/06/22 23:51 Sodium 137 mmol/L (136-145) 10/06/22 23:51 Potassium 4.1 mmol/L (3.5-5.1) 10/06/22 23:51 Chloride 104 mmol/L (98-107) 10/06/22 23:51 Carbon Dioxide 21 mmol/L (22-29) L 10/06/22 23:51 Anion Gap 16.1 (5-19) 10/06/22 23:51 BUN 21 mg/dL (8-23) 10/06/22 23:51 Creatinine 1.2 mg/dL (0.7-1.2) 10/06/22 23:51 GFR Calculation Not Reportable 10/06/22 23:51 Glucose 135 mg/dL (65-115) H 10/06/22 23:51 Calculated Osmolality 289 mOsm/kg (285-295) 10/06/22 23:51 Lactic Acid 1.9 mmol/L (0.5-2.2) 10/06/22 23:51 Calcium 9.3 mg/dL (8.5-10.5) 10/06/22 23:51 Total Bilirubin 0.6 mg/dL (0.15-1.2) 10/06/22 23:51 AST 24 U/L (0-40) 10/06/22 23:51 ALT 19 U/L (0-41) 10/06/22 23:51 Alkaline Phosphatase 132 U/L (40-130) H 10/06/22 23:51 C-Reactive Protein 5.8 mg/L (0.0-4.9) H 10/06/22 23:51 Total Protein 7.1 g/dL (6.6-8.7) 10/06/22 23:51 Albumin 4.3 g/dL (3.5-5.2) 10/06/22 23:51 Globulin 2.8 g/dL (1.3-4.6) 10/06/22 23:51 Urine Color Yellow (Yellow) 10/07/22 00:25 Urine Appearance Hazy (CLEAR) A 10/07/22 00:25 Urine pH 5 (5-7) 10/07/22 00:25 Ur Specific [place] 1.020 (1.005-1.030) 10/07/22 00:25 Urine Protein Neg (Negative) 10/07/22 00:25 Urine Glucose (UA) Norm (Normal) 10/07/22 00:25 Urine Ketones Negative (Negative) 10/07/22 00:25 Urine Blood 2+ (Negative) H 10/07/22 00:25 Urine Nitrate Positive (Negative) H 10/07/22 00:25 Urine Bilirubin Neg (Negative) 10/07/22 00:25 Urine Urobilinogen Norm mg/dL (Negative) 10/07/22 00:25 Ur Leukocyte Esterase 2+ (Negative) H 10/07/22 00:25 Urine RBC 5-10 /hpf (0-2) H 10/07/22 00:25 Urine WBC 55-80 /hpf (0-5) H 10/07/22 00:25 Ur Squamous Epith Cells 0-4 /hpf (0-5) H 10/07/22 00:25 Amorphous Sediment Not Reportable 10/07/22 00:25 Urine Bacteria 2+ /hpf (NONE) H 10/07/22 00:25 Nasal Influ A H1 2009 PCR Not detected (NOT DETECT) 10/07/22 00:23 Adenovirus (PCR) Not detected (NOT DETECT) 10/07/22 00:23 C. pneumoniae DNA (PCR) Not detected (NOT DETECT) 10/07/22 00:23 Coronavirus 229E (PCR) Not detected (NOT DETECT) 10/07/22 00:23 Human Metapneumovir PCR Not detected (NOT DETECT) 10/07/22 00:23 Influenza A (H1) PCR Not detected (NOT DETECT) 10/07/22 00:23 Influenza A (H3) PCR Not detected (NOT DETECT) 10/07/22 00:23 Influenza Type A (PCR) Not detected (NOT DETECT) 10/07/22 00:23 Influenza Type B (PCR) Not detected (NOT DETECT) 10/07/22 00:23 M. pneumoniae (PCR) Not detected (NOT DETECT) 10/07/22 00:23 Parainfluenza 1 (PCR) Not detected (NOT DETECT) 10/07/22 00:23 Parainfluenza 2 (PCR) Not detected (NOT DETECT) 10/07/22 00:23 Parainfluenza 3 (PCR) Detected (NOT DETECT) A 10/07/22 00:23 Parainfluenza 4 (PCR) Not detected (NOT DETECT) 10/07/22 00:23 RSV Type A (PCR) Not detected (NOT DETECT) 10/07/22 00:23 RSV Type B (PCR) Not detected (NOT DETECT) 10/07/22 00:23 Entero/Rhino (PCR) Not detected (NOT DETECT) 10/07/22 00:23 SARS-CoV-2 (PCR) Not detected (NOT DETECT) 10/07/22 00:23 Discharge Plan Discharge Patient Disposition: Home Clinical Impression: Urinary tract infection in male Condition: Stable Prescriptions: New cefdinir 300 mg capsule 300 mg PO BID 10 Days Qty: 20 0RF No Action allopurinol 300 mg tablet 300 mg PO QAM atorvastatin 40 mg tablet 40 mg PO DAILY Qty: 90 3RF aspirin 81 mg tablet,delayed release (DR/EC) 81 mg PO DAILY Qty: 90 3RF ticagrelor [Brilinta] PO BID hydroxychloroquine 200 mg tablet 200 mg PO BID Qty: 60 3RF leflunomide 20 mg tablet 20 mg PO QAM Qty: 90 0RF Nexium 20 mg capsule,delayed release(DR/EC) 20 mg PO BID losartan 50 mg tablet 50 mg PO DAILY prasugrel 10 mg tablet 10 mg PO DAILY Qty: 90 3RF Rx Instructions: Take 60mg (6 tabs) first day & then 10mg (1 tab) daily tamsulosin 0.4 mg capsule 0.8 mg PO BEDTIME chlorhexidine gluconate 0.12 % mouthwash See Rx Instructions .ROUTE .COMPLEX Rx Instructions: swish and spit 15ml po twice a day Nitrostat 0.4 mg tablet, sublingual 0.4 mg sublingual Q5M PRN (Reason: chest pain) Qty: 30 1RF Rx Instructions: do not exceed 3 doses per episode fexofenadine 180 mg Tablet 180 mg PO DAILY Discharge Orders: Discharge ED (Routine); Ordered 10/07/22 Ordered By: Ant Ferrara Referrals: Carlos Ansari MD [Primary Care Provider] - 1-3 days Patient Instructions: Urinary Tract Infection in Men (ED) Activity Restrictions/Additional Instructions: Antibiotics as directed. Monitor your temperature and treat accordingly. Push oral hydration. He should stay in a cool environment. Return for mental status changes, worsening temperature, increasing pain, any other concerning symptoms. See your doctor this coming week, as you need to ensure your urine is clearing itself of infection. Coding Level of Care Code ED [employer] Teacher for Imtiaz Meyer
[2022-10-06] MEDS: sodium chloride 0.9% 1,000 ML 999 ML IV (23:48)
[2022-10-07] VITALS: BP 139/88; PULSE 107; O2SAT 96
[2022-10-07] LABS: Basophils # 0.1 10^3/uL (0.0-0.1); Basophils % 0.7 %; Eosinophils # 0.1 10^3/uL (0.0-0.8); Eosinophils % 0.8 %; Hematocrit 46.2 % (42.0-52.0); Hemoglobin 14.9 g/dL (11.7-16.6); Lymphocytes # 0.4 10^3/uL (0.8-4.8); Lymphocytes % 2.2 %; Mean Corpuscular HGB Conc 32.3 g/dL (30.0-36.0); Mean Corpuscular Hemoglobin 27.9 pg (28.0-34.0); Mean Corpuscular Volume 86.5 fl (80-94); Mean Platelet Volume 10.4 fL (7.4-10.4); Monocytes # 1.1 10^3/uL (0.2-0.9); Monocytes % 6.1 %; Neutrophils # 16.55 10^3/uL (1.8-7.7); Neutrophils % 89.8 %; Nucleated Red Blood Cells % 0 %; Platelet Count 243 10^3/cmm (130-400); Red Blood Count 5.34 10^6/uL (4.1-5.3); Red Cell Distribution Width 15.1 % (12.1-15.1); White Blood Count 18.4 10^3/uL (4.0-10.0)
[2022-10-07 00:28] LABS: Alanine Aminotransferase 19 U/L (0-41); Albumin Level 4.3 g/dL (3.5-5.2); Alkaline Phosphatase 132 U/L (40-130); Anion Gap 16.1 (5-19); Aspartate Amino Transferase 24 U/L (0-40); Blood Urea Nitrogen 21 mg/dL (8-23); C Reactive Protein 5.8 mg/L (0.0-4.9); Calcium 9.3 mg/dL (8.5-10.5); Carbon Dioxide 21 mmol/L (22-29); Chloride 104 mmol/L (98-107); Globulin 2.8 g/dL (1.3-4.6); Glucose 135 mg/dL (65-115); Osmolality Calculated 289 mOsm/kg (285-295); Potassium 4.1 mmol/L (3.5-5.1); Sodium 137 mmol/L (136-145); Total Bilirubin 0.6 mg/dL (0.15-1.2); Total Protein 7.1 g/dL (6.6-8.7)
[2022-10-07 00:30] VITALS: BP 149/78; PULSE 97; O2SAT 92
[2022-10-07 00:31] LABS: Lactic Sepsis W/Reflex 1.9 mmol/L (0.5-2.2)
[2022-10-07 00:39] LABS: Bilirubin Urine Neg (Negative); Blood Urine 2+ (Negative); Glucose Urine UA Norm (Normal); Ketones Urine Negative (Negative); Leukocyte Esterase Urine 2+ (Negative); Nitrate Urine Positive (Negative); Protein Urine Neg (Negative); Urine Appearance Hazy (CLEAR); Urine Color Yellow (Yellow); Urobilinogen Urine Norm (Negative); pH Urine 5 (5-7)
[2022-10-07 00:40] LABS: Add Urine Microscopic? YES
[2022-10-07 00:41] LABS: WBC Urine 55-80 /hpf (0-5)
[2022-10-07 00:42] LABS: Add Urine Culture? Yes; Bacteria Urine 2+ /hpf; Squamous Epithelial Cell Urine 0-4 /hpf (0-5)
--- NOTE | 2022-10-07 01:16 | PC.NURSE ---
Post void bladder scan completed. Approx 266ml noted. aware
[2022-10-07] MEDS: cefTRIAXone 1,000 MG in sodium chloride 0.9% (plus) 50 ML 100 MG IV (01:22)
[2022-10-07 01:28] VITALS: BP 133/78; PULSE 100; RESP 16; TEMP 37.3; O2SAT 92
[2022-10-07 02:18] LABS: Adenovirus Not Detected (NOT DETECT); Chlamydia Pneumoniae Not Detected (NOT DETECT); Coronavirus 229E,HKU1,NL63,OC4 Not Detected (NOT DETECT); Human Metapneumovirus Not Detected (NOT DETECT); Human Rhinovirus/Enterovirus Not Detected (NOT DETECT); Influenza A Not Detected (NOT DETECT); Influenza A H1 Not Detected (NOT DETECT); Influenza A H1-2009 Not Detected (NOT DETECT); Influenza A H3 Not Detected (NOT DETECT); Influenza B Not Detected (NOT DETECT); Mycoplasma Pneumoniae Not Detected (NOT DETECT); Parainfluenza Virus Type 1 Not Detected (NOT DETECT); Parainfluenza Virus Type 2 Not Detected (NOT DETECT); Parainfluenza Virus Type 3 Detected (NOT DETECT); Parainfluenza Virus Type 4 Not Detected (NOT DETECT); Respiratory Syncytial Virus A Not Detected (NOT DETECT); Respiratory Syncytial Virus B Not Detected (NOT DETECT); SARS-COV-2 Not Detected (NOT DETECT)
== END 2022-10-07 01:52 | disposition home or self-care (01) ==
PROVIDERS: Emergency Provider Emergency Medicine; PCP Family Medicine
DX: N39.0 Urinary tract infection, site not specified (principal); Z79.82 Long term (current) use of aspirin; Z20.822 Contact with and (suspected) exposure to COVID-19; I25.10 Atherosclerotic heart disease of native coronary artery without angina pectoris; E11.22 Type 2 diabetes mellitus with diabetic chronic kidney disease; I12.9 Hypertensive chronic kidney disease with stage 1 through stage 4 chronic kidney disease, or unspecified chronic kidney disease; N18.9 Chronic kidney disease, unspecified; I25.2 Old myocardial infarction
CPT/HCPCS: 36415; 71045; 80053; 81001; 83605; 85025; 86140; 87040; 87077; 87086; 87186; 87486; 87581; 87633; 96361; 96374; 99284; J0696; J7030

== ENCOUNTER → 2022-11-12 18:33 | Outpatient (BNVA) | payer MEDICARE, OTHER, SELFPAY | PROVIDERS: PCP Family Medicine; Visit Provider Emergency Medicine | DX: N39.0 Urinary tract infection, site not specified (principal) | CPT/HCPCS: 81000; 87077; 87086; 87184 ==

== ENCOUNTER → 2022-12-08 13:20 | Outpatient (BNVA) | payer MEDICARE, OTHER, SELFPAY | PROVIDERS: PCP Family Medicine; Visit Provider Nurse Practitioner Family | DX: N39.0 Urinary tract infection, site not specified (principal) | CPT/HCPCS: 81000; 87077; 87086; 87184 ==

== ENCOUNTER → 2022-12-24 09:22 | Outpatient (BNVA) | payer MEDICARE, OTHER, SELFPAY | PROVIDERS: PCP Family Medicine; Visit Provider Internal Medicine Rheumatology | DX: M06.00 Rheumatoid arthritis without rheumatoid factor, unspecified site (principal); Z79.899 Other long term (current) drug therapy | CPT/HCPCS: 99214 ==

== ENCOUNTER → 2023-01-09 15:18 | Outpatient (BNVA) | payer MEDICARE, OTHER, SELFPAY | PROVIDERS: PCP Family Medicine; Visit Provider Internal Medicine Cardiovascular Disease | DX: I25.10 Atherosclerotic heart disease of native coronary artery without angina pectoris (principal); Z79.899 Other long term (current) drug therapy; I12.9 Hypertensive chronic kidney disease with stage 1 through stage 4 chronic kidney disease, or unspecified chronic kidney disease; E11.22 Type 2 diabetes mellitus with diabetic chronic kidney disease; E11.65 Type 2 diabetes mellitus with hyperglycemia; N18.9 Chronic kidney disease, unspecified | CPT/HCPCS: 99214 ==

== ENCOUNTER 2023-04-25 14:01 | Outpatient (CLI) | payer MEDICARE, OTHER, SELFPAY ==
[2023-04-25 14:13] LABS: Basophils # 0.1 10^3/uL (0.0-0.1); Eosinophils # 0.1 10^3/uL (0.0-0.8); Eosinophils % 1.1 %; Hematocrit 43.1 % (37-53); Lymphocytes # 1.8 10^3/uL (0.8-4.8); Lymphocytes % 13.8 %; Mean Corpuscular HGB Conc 32.7 g/dL (30-55); Mean Corpuscular Hemoglobin 28.1 pg (27-33); Mean Corpuscular Volume 85.9 fl (82-101); Mean Platelet Volume 10.2 fL (7.4-10.4); Monocytes # 1.1 10^3/uL (0.2-0.9); Monocytes % 8.7 %; Neutrophils # 9.69 10^3/uL (1.8-7.7); Neutrophils % 74.6 %; Nucleated Red Blood Cells % 0 %; Platelet Count 276 10^3/cmm (157-399); Red Blood Count 5.02 10^6/uL (3.85-5.65); Red Cell Distribution Width 14.8 % (12.1-15.1); White Blood Count 12.98 10^3/uL (3.29-11.43)
[2023-04-25 14:32] LABS: Alanine Aminotransferase 9 U/L (0-41); Alkaline Phosphatase 109 U/L (40-130); Aspartate Amino Transferase 14 U/L (0-40); Globulin 2.6 g/dL (1.3-4.6); Total Bilirubin 0.2 mg/dL (0.15-1.2); Total Protein 6.6 g/dL (6.6-8.7)
== END 2023-04-25 14:02 | disposition home or self-care (01) ==
LOC: LAB 14:02
PROVIDERS: PCP Family Medicine; Visit Provider Internal Medicine Rheumatology
DX: M06.00 Rheumatoid arthritis without rheumatoid factor, unspecified site (principal); Z79.899 Other long term (current) drug therapy
CPT/HCPCS: 36415; 80076; 82565; 85025; 86140

== ENCOUNTER → 2023-04-29 09:25 | Outpatient (BNVA) | payer MEDICARE, OTHER, SELFPAY | PROVIDERS: PCP Family Medicine; Visit Provider Internal Medicine Rheumatology | DX: Z79.899 Other long term (current) drug therapy (principal); M06.00 Rheumatoid arthritis without rheumatoid factor, unspecified site; Z71.85 Encounter for immunization safety counseling | CPT/HCPCS: 36415; 82565; 84520; 99214 ==

== ENCOUNTER 2023-05-13 08:21 | Outpatient (CLI) | payer MEDICARE, OTHER, SELFPAY ==
[2023-05-13 09:08] LABS: Blood Urea Nitrogen 14 mg/dL (8-23)
== END 2023-05-13 08:22 | disposition home or self-care (01) ==
LOC: LAB 08:22
PROVIDERS: PCP Family Medicine; Visit Provider Internal Medicine Rheumatology
DX: M06.00 Rheumatoid arthritis without rheumatoid factor, unspecified site (principal); Z79.899 Other long term (current) drug therapy
CPT/HCPCS: 36415; 82565; 84520

== ENCOUNTER → 2023-08-26 09:08 | Outpatient (BNVA) | payer MEDICARE, OTHER, SELFPAY | PROVIDERS: PCP Family Medicine; Visit Provider Internal Medicine Rheumatology | DX: Z79.899 Other long term (current) drug therapy (principal); M06.00 Rheumatoid arthritis without rheumatoid factor, unspecified site; Z71.85 Encounter for immunization safety counseling | CPT/HCPCS: 36415; 80076; 82565; 85025; 86140; 99214 ==

== ENCOUNTER → 2023-09-12 14:00 | Outpatient (BNVA) | payer MEDICARE, OTHER, SELFPAY | PROVIDERS: PCP Family Medicine; Visit Provider Nurse Practitioner Family | DX: L72.8 Other follicular cysts of the skin and subcutaneous tissue (principal); L82.1 Other seborrheic keratosis; D23.71 Other benign neoplasm of skin of right lower limb, including hip; L57.8 Other skin changes due to chronic exposure to nonionizing radiation | CPT/HCPCS: 99203 ==

== ENCOUNTER → 2023-10-09 14:15 | Outpatient (BNVA) | payer MEDICARE, OTHER, SELFPAY | PROVIDERS: PCP Family Medicine; Visit Provider Internal Medicine | DX: I25.10 Atherosclerotic heart disease of native coronary artery without angina pectoris (principal); I12.9 Hypertensive chronic kidney disease with stage 1 through stage 4 chronic kidney disease, or unspecified chronic kidney disease; N18.9 Chronic kidney disease, unspecified; E11.22 Type 2 diabetes mellitus with diabetic chronic kidney disease; E11.65 Type 2 diabetes mellitus with hyperglycemia; Z79.899 Other long term (current) drug therapy | CPT/HCPCS: 99214 ==

== ENCOUNTER → 2023-12-30 10:45 | Outpatient (BNVA) | payer MEDICARE, OTHER, SELFPAY | PROVIDERS: PCP Family Medicine; Visit Provider Internal Medicine Rheumatology | DX: M06.00 Rheumatoid arthritis without rheumatoid factor, unspecified site (principal); C64.9 Malignant neoplasm of unspecified kidney, except renal pelvis; Z79.899 Other long term (current) drug therapy; Z71.85 Encounter for immunization safety counseling; Z98.890 Other specified postprocedural states | CPT/HCPCS: 99214 ==

== ENCOUNTER → 2024-01-29 13:45 | Outpatient (BNVA) | payer MEDICARE, OTHER, SELFPAY | PROVIDERS: PCP Family Medicine; Visit Provider Dermatology | DX: D48.5 Neoplasm of uncertain behavior of skin (principal) | CPT/HCPCS: 11406; 12032 ==

== ENCOUNTER 2024-04-09 08:02 | Outpatient (CLI) | payer MEDICARE, OTHER, SELFPAY ==
[2024-04-09 08:27] LABS: Basophils # 0.2 10^3/uL (0.0-0.1); Basophils % 2.7 %; Eosinophils # 0.5 10^3/uL (0.0-0.8); Hematocrit 43.4 % (37-53); Lymphocytes # 1.6 10^3/uL (0.8-4.8); Lymphocytes % 22.2 %; Mean Corpuscular HGB Conc 31.8 g/dL (30-55); Mean Corpuscular Hemoglobin 28.8 pg (27-33); Mean Corpuscular Volume 90.4 fl (82-101); Mean Platelet Volume 10.5 fL (7.4-10.4); Monocytes # 0.7 10^3/uL (0.2-0.9); Monocytes % 9.2 %; Neutrophils % 58.4 %; Nucleated Red Blood Cells % 0 %; Platelet Count 267 10^3/cmm (157-399); Red Cell Distribution Width 14.1 % (12.1-15.1); White Blood Count 7.38 10^3/uL (3.29-11.43)
[2024-04-09 08:44] LABS: Erythrocyte Sedimentation Rate 3 mm/hr (0-10)
[2024-04-09 08:48] LABS: Alanine Aminotransferase 12 U/L (0-41); Albumin Level 4.3 g/dL (3.5-5.2); Alkaline Phosphatase 139 U/L (40-130); Aspartate Amino Transferase 19 U/L (0-40); Globulin 2.7 g/dL (1.3-4.6); Total Bilirubin 0.6 mg/dL (0.15-1.2)
== END 2024-04-09 08:03 | disposition home or self-care (01) ==
LOC: LAB 08:07
PROVIDERS: PCP Family Medicine; Visit Provider Internal Medicine Rheumatology
DX: M06.00 Rheumatoid arthritis without rheumatoid factor, unspecified site (principal); Z79.899 Other long term (current) drug therapy
CPT/HCPCS: 36415; 80076; 82565; 85025; 85651; 86140

== ENCOUNTER → 2024-04-24 10:56 | Outpatient (BNVA) | payer MEDICARE, OTHER, SELFPAY | PROVIDERS: PCP Family Medicine; Visit Provider Nurse Practitioner Family | DX: I25.10 Atherosclerotic heart disease of native coronary artery without angina pectoris (principal); I12.9 Hypertensive chronic kidney disease with stage 1 through stage 4 chronic kidney disease, or unspecified chronic kidney disease; E11.22 Type 2 diabetes mellitus with diabetic chronic kidney disease; N18.9 Chronic kidney disease, unspecified; E11.65 Type 2 diabetes mellitus with hyperglycemia; Z79.899 Other long term (current) drug therapy | CPT/HCPCS: 99213 ==

== ENCOUNTER → 2024-05-11 10:49 | Outpatient (BNVA) | payer MEDICARE, OTHER, SELFPAY | PROVIDERS: PCP Family Medicine; Visit Provider Internal Medicine Rheumatology | DX: M06.00 Rheumatoid arthritis without rheumatoid factor, unspecified site (principal); Z79.899 Other long term (current) drug therapy; Z71.85 Encounter for immunization safety counseling | CPT/HCPCS: 99214 ==

== ENCOUNTER 2024-06-11 07:53 | Outpatient (CLI) | payer MEDICARE, OTHER, SELFPAY ==
[2024-06-11 08:43] LABS: Alanine Aminotransferase 9 U/L (0-41); Albumin Level 3.9 g/dL (3.5-5.2); Alkaline Phosphatase 144 U/L (40-130); Anion Gap 14.3 (5-19); Aspartate Amino Transferase 16 U/L (0-40); Blood Urea Nitrogen 27 mg/dL (8-23); Calcium 8.9 mg/dL (8.5-10.5); Carbon Dioxide 21 mmol/L (22-29); Chloride 106 mmol/L (98-107); Globulin 2.7 g/dL (1.3-4.6); Glucose 172 mg/dL (65-115); Osmolality Calculated 293 mOsm/kg (285-295); Potassium 4.3 mmol/L (3.5-5.1); Sodium 137 mmol/L (136-145); Total Bilirubin 0.4 mg/dL (0.15-1.2); Total Protein 6.6 g/dL (6.6-8.7)
== END 2024-06-11 07:54 | disposition home or self-care (01) ==
LOC: LAB 07:57
PROVIDERS: PCP Family Medicine; Visit Provider Family Medicine
DX: I10 Essential (primary) hypertension (principal); N18.31 Chronic kidney disease, stage 3a; D50.9 Iron deficiency anemia, unspecified
CPT/HCPCS: 36415; 80053

== ENCOUNTER → 2024-08-31 09:36 | Outpatient (BNVA) | payer MEDICARE, OTHER, SELFPAY | PROVIDERS: PCP Family Medicine; Visit Provider Internal Medicine Rheumatology | DX: M06.00 Rheumatoid arthritis without rheumatoid factor, unspecified site (principal); Z79.899 Other long term (current) drug therapy; Z71.85 Encounter for immunization safety counseling | CPT/HCPCS: 36415; 80076; 82306; 82565; 85025; 85651; 86140; 86480; 99214 ==

== ENCOUNTER → 2024-09-14 14:04 | Outpatient (BNVA) | payer MEDICARE, OTHER, SELFPAY | PROVIDERS: PCP Family Medicine; Visit Provider Nurse Practitioner Family | DX: D23.22 Other benign neoplasm of skin of left ear and external auricular canal (principal); L73.8 Other specified follicular disorders; L82.1 Other seborrheic keratosis; D23.71 Other benign neoplasm of skin of right lower limb, including hip; L57.8 Other skin changes due to chronic exposure to nonionizing radiation; L57.0 Actinic keratosis | CPT/HCPCS: 17000; 99213 ==

== ENCOUNTER 2024-09-30 12:47 | Outpatient (CLI) | payer MEDICARE, OTHER, SELFPAY ==
--- NOTE | 2024-09-30 12:57 | CTR_ITS ---
PROCEDURE INFORMATION: Exam: CT Abdomen And Pelvis Without Contrast Exam date and time: 09/30/2024 2:11 PM Age: 74 years old Clinical indication: Prior oncological treatment - not specified. Condition or disease; Cancer; Kidney, right; Primary cancer: Right kidney; Prior surgery; Surgery date: 6+ months; Surgery type: RT kidney, hernia; Additional info: Clear cell carcionoma of R kidney, TECHNIQUE: Imaging protocol: Computed tomography of the abdomen and pelvis without contrast. Radiation optimization: All CT scans at this facility use at least one of these dose optimization techniques: automated exposure control; mA and/or kV adjustment per patient size (includes targeted exams where dose is matched to clinical indication); or iterative reconstruction. COMPARISON: CT abdomen pelvis w con* [id number] 01/17/2022 10:54 PM RADIATION DOSE METRICS: Total DLP (mGy-cm): 673.2 FINDINGS: Liver: Normal. No mass. Gallbladder and biliary ducts: Cholelithiasis. Pancreas: Normal. No ductal dilation. Spleen: Normal. No splenomegaly. Adrenal glands: Normal. No mass. Kidneys and ureters: The right kidney is absent. Left-sided renal cysts. No hydronephrosis. Bilateral total hip arthroplasties. Stomach and bowel: Colonic diverticulosis. No bowel obstruction. Appendix: No evidence of appendicitis. Intraperitoneal space: Unremarkable. No free air. No significant fluid collection. Vasculature: Unremarkable. No abdominal aortic aneurysm. Lymph nodes: Unremarkable. No enlarged lymph nodes. Urinary bladder: Urinary bladder diverticulosis. Reproductive: Unremarkable as visualized. Bones/joints: Multilevel degenerative changes of the spine. Soft tissues: Small fat containing umbilical hernia. Postsurgical changes of left inguinal herniorrhaphy are identified. CT/CT abdomen pelvis wo con [id number] IMPRESSION: No acute findings. Incidental/chronic findings. COMMENTS: Consistent with the [employer]'s Incidental Findings Committee white paper (J Am Noble [employer]iol 2018): Any incidental renal lesion less than 1 cm or classified as too small to characterize, or any incidental cystic renal lesion characterized as simple-appearing, is likely benign. No follow-up imaging is recommended for these lesions per consensus recommendations based on imaging criteria.
[2024-09-30 14:02] LABS: Blood Urea Nitrogen 25 mg/dL (8-23)
== END 2024-09-30 12:48 | disposition home or self-care (01) ==
LOC: RAD 12:49
PROVIDERS: PCP Family Medicine; Visit Provider Nurse Practitioner Family
DX: C64.1 Malignant neoplasm of right kidney, except renal pelvis (principal)
CPT/HCPCS: 74176; 82565; 84520

== ENCOUNTER → 2024-10-05 14:53 | Outpatient (BNVA) | payer MEDICARE, OTHER, SELFPAY | PROVIDERS: PCP Family Medicine; Visit Provider Internal Medicine | DX: I25.10 Atherosclerotic heart disease of native coronary artery without angina pectoris (principal); I12.9 Hypertensive chronic kidney disease with stage 1 through stage 4 chronic kidney disease, or unspecified chronic kidney disease; N18.9 Chronic kidney disease, unspecified; E11.22 Type 2 diabetes mellitus with diabetic chronic kidney disease; Z79.82 Long term (current) use of aspirin; Z79.899 Other long term (current) drug therapy; Z95.5 Presence of coronary angioplasty implant and graft; I25.2 Old myocardial infarction | CPT/HCPCS: 99214 ==

== ENCOUNTER 2024-12-17 07:57 | Outpatient (CLI) | payer MEDICARE, OTHER, SELFPAY ==
[2024-12-17 09:43] LABS: Hematocrit 37.1 % (37-53); Hemoglobin 12.00 g/dL (11.27-16.99); Mean Corpuscular HGB Conc 32.3 g/dL (30-55); Mean Corpuscular Hemoglobin 28.0 pg (27-33); Mean Corpuscular Volume 86.5 fl (82-101); Nucleated Red Blood Cells % 0 %; Platelet Count 264 10^3/cmm (157-399); Red Blood Count 4.29 10^6/uL (3.85-5.65); White Blood Count 9.94 10^3/uL (3.29-11.43)
[2024-12-17 10:12] LABS: Alanine Aminotransferase 8 U/L (0-41); Albumin Level 4.2 g/dL (3.5-5.2); Alkaline Phosphatase 118 U/L (40-130); Aspartate Amino Transferase 16 U/L (0-40); Globulin 2.7 g/dL (1.3-4.6); Total Protein 6.9 g/dL (6.6-8.7)
[2024-12-17 10:20] LABS: Blood Urea Nitrogen 29 mg/dL (8-23)
== END 2024-12-17 07:58 | disposition home or self-care (01) ==
PROVIDERS: PCP Family Medicine; Visit Provider Internal Medicine Rheumatology
DX: Z79.899 Other long term (current) drug therapy (principal); C64.1 Malignant neoplasm of right kidney, except renal pelvis
CPT/HCPCS: 36415; 80076; 82565; 84520; 85025; 85651; 86140

== ENCOUNTER → 2025-02-23 09:40 | Outpatient (BNVA) | payer MEDICARE, OTHER, SELFPAY | PROVIDERS: PCP Family Medicine; Visit Provider Internal Medicine Rheumatology | DX: M06.00 Rheumatoid arthritis without rheumatoid factor, unspecified site (principal); Z79.899 Other long term (current) drug therapy; Z71.85 Encounter for immunization safety counseling; Z87.19 Personal history of other diseases of the digestive system; Z85.528 Personal history of other malignant neoplasm of kidney | CPT/HCPCS: 99214 ==